=== PATIENT | male | born 1990 | race Caucasian/White ===

== ENCOUNTER → 2019-05-24 | Outpatient (CLI) | payer OTHER ==
--- NOTE | 2019-05-24 10:30 | Diagnostic Imaging Report ---
EXAM: US ABDOMEN COMPLETE DATE: 05/24/2019 8:40 AM INDICATION: Abdominal pain COMPARISON: None TECHNIQUE: Transverse and longitudinal vazquez scale and color doppler sonographic images of the upper abdomen were obtained. FINDINGS: There is no evidence of fluid or masses seen in the area of clinical concern in the right lower quadrant. LIVER 15.2 cm in the right midclavicular line. Normal echogenicity of the liver with normal contour, no masses. SPLEEN 12.7 cm in maximum diameter. Normal echogenicity, no masses. GALLBLADDER 1.4 cm echogenic lesion in the body of the gallbladder without associated acoustic shadowing, possibly representing tumefactive sludge. No gallbladder wall thickening, distension, stone, or pericholecystic fluid. Negative reported sonographic Santo's sign. Gallbladder wall measures 2 mm. BILE DUCTS No intra nor extra-hepatic biliary dilation. Common bile duct measures 4 mm PANCREAS: Visualized portions are normal. RIGHT KIDNEY: 10.1 cm Echogenicity: Normal Collecting System: No hydronephrosis Stones: None Cyst/Mass: None LEFT KIDNEY: 10.6 cm Echogenicity: Normal Collecting System: No hydronephrosis Stones: None Cyst/Mass: None VESSELS: Aorta: Visualized portions are within normal size limits Inferior Vena Cava: Visualized portions are normal Main Portal Vein: 1.0 cm, normal size with hepatopetal flow. FREE FLUID: None IMPRESSION: 1.4 cm echogenic lesion in the body of the gallbladder without associated acoustic shadowing may represent tumefactive sludge. No sonographic evidence of cholecystitis. Signed by: Devorah Jaquez MD on 05/24/2019 10:26 AM
== END ==
LOC: US 08:32
PROVIDERS: ATTEND Family Medicine
DX: R10.9 Unspecified abdominal pain (principal)
CPT/HCPCS: 76700

== ENCOUNTER → 2019-06-03 | Day surgery (SDC) | payer MEDICARE, OTHER ==
[~2019-06-03] MED LIST: ABILIFY5 MG PO; ATORVASTATIN CA10 MG PO; DIAZEPAM5 MG PO; FARXIGA10 MG; LITHIUM CARBON450 MG; MONTELUKAST SOD10 MG PO; PIOGLITAZONE HC45 MG PO; PROPOFOL IV EMULSION 10 MG/ML 50 ML VIAL ONE
--- OUTSIDE RECORDS SUMMARY | 2019-06-03 11:25 | XMS REPORT ---
Author Author Admin, [place] Organization Unknown Address Unknown Phone Unavailable PROBLEMS Condition Status Date Provider Notes High risk medication management active Forrest Atri Diabetes mellitus, type II active Natali Santso Polydipsia active Natali Santos Polyuria active Natali Santos Allergic rhinitis active Elmer Solorio Impulse control disorder, unspecified active Forrest Atri Gastroenteritis completed - Madhumita [place] Abdominal pain, generalized completed - Elmer Solorio Hyperglycemia active Elmer Solorio Adjustment disorder with conduct disturbance active Forrest Atri Encounter for general adult medical examination with abnormal findings active Elmer Solorio Weight loss abnormal completed - Elmer Solorio Screening for other and unspecified cardiovascular conditions active Elmer Solorio Incontinence, urinary NOS active Elmer Solorio Screening for thyroid disorder active Elmer Solorio Congenital megacolon active Elmer Solorio Screening for diabetes mellitus active Elmer Solorio Intellectual disability, moderate active Elmer Solorio ENCOUNTERS Date Type Provider Location Encounter Diagnosis - Ambulatory Encounter Forrest Atri Forrest Atri [facility] UNK - Ambulatory Encounter Forrest Atri Forrest Atri Sheryl Esparza [facility] UNK - Ambulatory Encounter Forrest Atri Forrest Atri [facility] UNK - Ambulatory Encounter Forrest Atri Forrest Atri Sabrina Ayala [facility] UNK - Ambulatory Encounter [facility] En[facility] Forrest Atri Forrest Atri [facility] UNK - Ambulatory Encounter Forrest Atri Forrest Atri Sheryl Esparza [facility] UNK - Ambulatory Encounter Forrest Atri Forrest Atri [facility] UNK - Ambulatory Encounter Forrest Atri Forrest Atri Rosa Elena Saucedo Esparza [facility] High risk medication management - Ambulatory Encounter Forrest Atri Forrest Atri [facility] UNK - Ambulatory Encounter Forrest Atri Forrest Atri Cookie Kern [facility] UNK - Ambulatory Encounter Forrest Atri Forrest Atri [facility] UNK - Ambulatory Encounter Forrest Atri Forrest Atri Sabrina Ayala [facility] UNK - Ambulatory Encounter Forrest Atri Forrest Atri [facility] UNK - Ambulatory Encounter Forrest Atri Forrest Atri [facility] UNK - Ambulatory Encounter Sheryl Esparza [facility] UNK - Ambulatory Encounter Forrest Atri Forrest Atri Sharon Mathewia Esparza [facility] UNK - Ambulatory Encounter Forrest Atri Forrest Atri [facility] UNK - Ambulatory Encounter Forrest Atri Forrest Atri [facility] UNK - Ambulatory Encounter Forrest Atri Forrest Atri Alejandrina Cannon [facility] UNK - Ambulatory Encounter Forrest Atri Forrest Atri Isa Dandre [facility] UNK - Ambulatory Encounter Forrest Atri Forrest Atri Randi Mcintoshdo [facility] UNK - Ambulatory Encounter Moni Adán Mellozmin Mayers Forrest Atri Forrest Atri [facility] UNK - Ambulatory Encounter Forrest Atri Forrest Atri [facility] UNK - Ambulatory Encounter Forrest Atri Forrest Atri Zenon Montes [facility] UNK - Ambulatory Encounter [facility]ri [facility] - Ambulatory Encounter Natali Santos LinkLog [facility] UNK - Ambulatory Encounter Natali Santos LinkLog [facility] UNK - Ambulatory Encounter Forrest Atri Forrest Atri Cintia Gonzalez [facility] UNK - Ambulatory Encounter Forrest Atri Forrest Atri [facility] UNK - Ambulatory Encounter Natali Santos [facility] UNK - Ambulatory Encounter Natali Santos LinkLog [facility] UNK - Ambulatory Encounter Forrest Atri Forrest Atri Piper Mayers [facility] UNK - Ambulatory Encounter Forrest Atri Forrest Atri Zenon Montes [facility] UNK - Ambulatory Encounter Forrest Atri Forrest Atri LinkLogic [facility] UNK - Ambulatory Encounter Forrest Atri Forrest Atri Sheryl Esparza [facility] UNK - Ambulatory Encounter Forrest Atri Forrest Atri [facility] UNK - Ambulatory Encounter Forrest Atri Forrest Atri LinkLogic [facility] UNK - Ambulatory Encounter Natali Santos [facility] Diabetes mellitus, type II - Ambulatory Encounter Forrest Atri Forrest Atri Marj Jimenez [facility] UNK - Ambulatory Encounter Marj Jimenez [facility] UNK - Ambulatory Encounter Marj Jimenez [facility] UNK - Ambulatory Encounter [facility] UN[facility] - Ambulatory Encounter Natali Santos [facility] UNK - Ambulatory Encounter LSJ Lab Support Desktop Jeevan Santos [facility] UNK - Ambulatory Encounter Fax Status LinkLogic [facility] UNK - Ambulatory Encounter Fax Status LinkLogic [facility] UNK - Ambulatory Encounter Fax Status LinkLogic [facility] UNK - Ambulatory Encounter Perla cMcain [facility] UNK - Ambulatory Encounter Forrest Atri Forrest Atri Sheryl Esparza [facility] UNK - Ambulatory Encounter Natali Santos [facility] UNK - Ambulatory Encounter [facility] PolyuriaPolydipsia - Ambulatory Encounter Anabelle Santos [facility] UNK - Ambulatory Encounter Forrest Atri Forrest Atri Marj Jimenez [facility] UNK - Ambulatory Encounter Marj Jimenez [facility] UNK - Ambulatory Encounter Cintia Garcia [facility] UNK - Ambulatory Encounter [facility] UNK - Ambulatory Encounter Elmer Solorio [facility] - Ambulatory Encounter Forrest Atri Forrest Atri Piper Mayers [facility] UNK - Ambulatory Encounter Forrest Atri Forrest Atri [facility] UNK - Ambulatory Encounter Forrest Atri Forrest Atri [facility] UNK - Ambulatory Encounter Forrest Atri Forrest [facility] - [facility]ulatory Encounter Forrest Atri Forrest Atri [facility] UNK - Ambulatory Encounter Forrest Atri Forrest Atri Sheryl Esparza [facility] UNK - Ambulatory Encounter Elmer Solorio [facility] UNK - Ambulatory Encounter Marj Tony [facility] UNK - Ambulatory Encounter Vance [place] [facility] Weight loss abnormalAbdominal pain, generalizedAllergic rhinitis - Ambulatory Encounter Forrest Atri Forrest Atri [facility] UNK - Ambulatory Encounter Forrest Atri Forrest Atri [facility] UNK - Ambulatory Encounter Forrest Atri Forrest Atri LinkLogic [facility] UNK - Ambulatory Encounter Forrest Atri Forrest [facility]ri [facility] - Ambulatory Encounter Marj Jimenez [facility] UNK - [facility] UNK - Ambulatory Encounter Forrest Atri Forrest Atri [facility] UNK - Ambulatory Encounter Forrest Atri Forrest Atri Sheryl Esparza [facility] Impulse control disorder, unspecified - Ambulatory Encounter Sebastien Sampson [facility] UNK - Ambulatory Encounter Madhumita [place] Brodiehumita China [facility] - Ambulatory Encounter Forrest Atri Forrest Atri [facility] UNK - Ambulatory Encounter Forrest Atri Forrest Atri [facility] UNK - Ambulatory Encounter Forrest Atri Forrest Atri [facility] UNK - Ambulatory Encounter Forrest Atri Forrest Atri [facility] UNK - Ambulatory Encounter Forrest Atri Forrest Atri LinkLogic [facility] UNK - Ambulatory Encounter Forrest Atri Forrest Atri LinkLogic [facility] UNK - Ambulatory Encounter Forrest Atri Forrest Atri LinkLogic [facility] UNK - Ambulatory Encounter Marj Sampson [facility] UNK - Ambulatory Encounter Elmer Solorio [facility] UNK - Ambulatory Encounter Madzana [place] Madhumita [place] Surekha Solorio [facility] UNK - Ambulatory Encounter Forrest Atri Forrest [facility] - Ambulatory Encounter Madhumita [place] Madhumita [place] [facility] UNK - Ambulatory Encounter Marj Jimenez [facility] UNK - Ambulatory Encounter Madericmita [place] Madhumita [place] Phoebe Zurita [facility] Abdominal pain, generalizedGastroenteritis - Ambulatory Encounter Ashanti Richardson [facility] UNK - Ambulatory Encounter Elmer Solorio [facility] UNK - Ambulatory Encounter Marj Jimenez [facility] UNK - Ambulatory Encounter Forrest Atri Forrest Atri [facility] UNK - Ambulatory Encounter Forrest Atri Forrest Atri [facility] UNK - Ambulatory Encounter Forrest Atri Forrest Atri Sheryl Esparza [facility] UNK - Ambulatory Encounter Vance Dysonutosh Atri Forrest Atri Bettina Pool [facility] Hyperglycemia - Ambulatory Encounter Rebecca Shields [facility] UNK - Ambulatory Encounter Marj Jimenez Natalya Gabriel [facility] UNK - Ambulatory Encounter Forrest Montes [facility] Adjustment disorder with conduct disturbance - Ambulatory Encounter [facility] UNK - Ambulatory Encounter [facility] UNK - Ambulatory Encounter Leydi Westley [facility]K - Ambulatory Encounter Marj Tony [facility] UNK - Ambulatory Encounter Elmer Solorio [facility] UNK - Ambulatory [facility] Encounter Elmer Solorio [facility] UNK - Ambulatory Encounter Elmer Solorio [facility] UNK - Ambulatory Encounter Elmer Solorio [facility] UNK - Ambulatory Encounter Elmer Solorio [facility] UNK - Ambulatory Encounter Elmer Solorio [facility] UNK - Ambulatory Encounter Rebecca Arnold [facility] Intellectual disability, moderateScreening for diabetes mellitusCongenital megacolonScreening for thyroid disorderIncontinence, urinary NOSScreening for other and unspecified cardiovascular conditionsWeight loss abnormalEncounter for general adult medical examination with abnormal findings VITAL SIGNS No Information Available Allergies No Known Allergy Information REASON FOR REFERRAL No Information Available RESULTS Date Observation Value Provider Reference Range Interpretation Location lithium, blood 0.5 mmol/L LinkLogic 0.6-1.2 Low " LDL cholesterol, serum TRIGHI mg/dL LinkLogic 0-99 " very low density lipoproteins VLDLCH mg/dL LinkLogic 5-40 " HDL cholesterol, serum 33 mg/dL LinkLogic >39 Low " triglyceride, serum, fasting 407 mg/dL LinkLogic 0-149 High " cholesterol, serum 166 mg/dL LinkLogic 100-199 " alanine aminotransferase (SGPT), serum 69 1/L LinkLogic 0-44 High " aspartate aminotransferase (SGOT), serum 37 1/L LinkLogic 0-40 " alkaline phosphatase, serum 56 1/L [facility]Logic 39-117 " bilirubin, serum, total 0.3 mg/dL [facility]Logic 0.0-1.2 " albumin/globulin ratio, serum 2.2 [facility]Logic 1.2-2.2 " globulin, serum 2.4 [facility]Logic 1.5-4.5 " albumin, serum 5.2 g/dL LinkLogic 3.5-5.5 " protein, total, serum 7.6 g/dL [facility]Logic 6.0-8.5 " calcium, serum 10.3 mg/dL [facility]Logic 8.7-10.2 High " carbon dioxide, venous blood 23 mmol/L [facility]Logic 20-29 " chloride, serum 102 mmol/L LinkLogic 96-106 " potassium, serum 3.8 mmol/L LinkLogic 3.5-5.2 " sodium, serum 142 mmol/L LinkLogic 134-144 " urea nitrogen/creatinine ratio, serum 24 LinkLogic 9-20 High " eGFR if 176 mL/min/((173/100).m2) LinkLogic >59 " Estimated Glomerular Filtration Rate (calc) 152 mL/min/((173/100).m2) LinkLogic >59 " creatinine, serum 0.45 mg/dL LinkLogic 0.76-1.27 Low " urea nitrogen, blood 11 mg/dL LinkLogic 6-20 " blood glucose, random 129 mg/dL LinkLogic 65-99 High " immature granulocytes, percentage of total cells, blood 1 % LinkLogic Not Estab. " basophil count, absolute 0.1 x10E3/uL LinkLogic 0.0-0.2 " Eosinophil Absolute Count 0.2 X10E3/UL LinkLogic 0.0-0.4 " monocyte count, blood, automated 0.6 X10E3/UL LinkLogic 0.1-0.9 " lymphocyte count, blood, automated 1.5 X10E3/UL LinkLogic 0.7-3.1 " Absolute Neutrophils 5.6 X10E3/UL LinkLogic 1.4-7.0 " basophils as percent of blood leukocytes 1 % LinkLogic Not Estab. " eosinophils as percent of blood leukocytes 2 % LinkLogic Not Estab. " monocytes as percent of blood leukocytes 7 % LinkLogic Not Estab. " lymphocytes as percent of blood leukocytes 19 % LinkLogic Not Estab. " neutrophils as percent of blood leukocytes 70 % LinkLogic Not Estab. " platelet count 205 X10E3/UL LinkLogic 150-379 " red blood cell distribution width 13.2 % LinkLogic 12.3-15.4 " mean corpuscular hemoglobin concentration, RBC 35.1 G/DL LinkLogic 31.5-35.7 " mean corpuscular hemoglobin, RBC 30.0 pg LinkLogic 26.6-33.0 " mean corpuscular volume, RBC 86 fL LinkLogic 79-97 " hematocrit, blood 50.1 % LinkLogic 37.5-51.0 " hemoglobin, blood 17.6 g/dL LinkLogic 13.0-17.7 " erythrocyte (RBC) count 5.86 X10E6/UL LinkLogic 4.14-5.80 High " leukocyte count, blood 7.9 X10E3/UL LinkLogic 3.4-10.8 lithium, blood 0.6 mmol/L LinkLogic 0.6-1.2 " triiodothyronine (T3), serum 120 ng/dL LinkLogic 71-180 " thyroxine, serum, total 8.4 ug/dL LinkLogic 4.5-12.0 " thyroid stimulating hormone, serum 2.160 u[iU]/mL LinkLogic 0.450-4.500 valproic acid, serum 121 ug/mL LinkLogic 50-100 Panic high urine culture No growth LinkLogic specific gravity, urine 1.005 Bettina Pool " pH, urine, semiquantitative 5.5 Bettina Pool " glucose, urine, semiquantitative 4+ Bettina Pool " bilirubin, urine negative Bettina Pool " ketones, urine, by test strip trace (5) Bettina Pool " blood in urine (hemoglobin) by dipstick negative Bettina Pool " protein, urine, semiquantitative (dipstick) negative Bettina Pool " urobilinogen, urine, semiquantitative (dipstick) negative Bettina Pool " nitrite, urine, semiquantitative negative Bettina Pool " leukocyte esterase, urine, by dipstick negative Bettina Pool " appearance, urine clear Bettina Pool " urine color yellow Bettina Pool " blood glucose, random 320 mg/dL Bettina Pool valproic acid, serum 76 ug/mL LinkLogic 50-100 blood glucose, random 101 mg/dL Surekha Monten[place]ro valproic acid, serum 13 ug/mL LinkLogic 50-100 Low blood glucose, random 131 mg/dL Bettina Pool hemoglobin A1C, blood, as % of total hemoglobin 10.7 % LinkLogic 4.8-5.6 High thyroid stimulating hormone, serum 1.650 u[iU]/mL LinkLogic 0.450-4.500 " LDL cholesterol, serum TRIGHI mg/dL LinkLogic 0-99 " very low density lipoproteins VLDLCH mg/dL LinkLogic 5-40 " HDL cholesterol, serum 27 mg/dL LinkLogic >39 Low " triglyceride, serum, fasting 410 mg/dL LinkLogic 0-149 High " cholesterol, serum 223 mg/dL LinkLogic 100-199 High " urinalysis, microscopic examination MICNIP LinkLogic " nitrate, urine Negative LinkLogic Negative " urobilinogen, urine, semiquantitative (dipstick) 0.2 LinkLogic 0.2-1.0 " bilirubin, urine Negative LinkLogic Negative " ketones, urine, by test strip 1+ LinkLogic Negative Abnormal " glucose, urine, semiquantitative 3+ LinkLogic Negative Abnormal " protein, urine, semiquantitative (dipstick) Negative LinkLogic Negative/Trace " leukocyte esterase, urine, by dipstick Negative LinkLogic Negative " appearance, urine Clear LinkLogic Clear " urine color Yellow LinkLogic Yellow " pH, urine, semiquantitative 6.5 LinkLogic 5.0-7.5 " specific gravity, body fluid >=1.030 LinkLogic 1.005-1.030 Abnormal " alanine aminotransferase (SGPT), serum 47 1/L LinkLogic 0-44 High " aspartate aminotransferase (SGOT), serum 26 1/L LinkLogic 0-40 " alkaline phosphatase, serum 76 1/L LinkLogic 39-117 " bilirubin, serum, total 0.5 mg/dL LinkLogic 0.0-1.2 " albumin/globulin ratio, serum 2.1 LinkLogic 1.2-2.2 " globulin, serum 2.3 LinkLogic 1.5-4.5 " albumin, serum 4.9 g/dL LinkLogic 3.5-5.5 " protein, total, serum 7.2 g/dL LinkLogic 6.0-8.5 " calcium, serum 10.4 mg/dL LinkLogic 8.7-10.2 High " carbon dioxide, venous blood 22 mmol/L LinkLogic 18-29 " chloride, serum 97 mmol/L LinkLogic 96-106 " potassium, serum 4.1 mmol/L LinkLogic 3.5-5.2 " sodium, serum 138 mmol/L LinkLogic 134-144 " urea nitrogen/creatinine ratio, serum 18 LinkLogic 9-20 " eGFR if 157 mL/min/((173/100).m2) LinkLogic >59 " Estimated Glomerular Filtration Rate (calc) 136 mL/min/((173/100).m2) LinkLogic >59 " creatinine, serum 0.60 mg/dL LinkLogic 0.76-1.27 Low " urea nitrogen, blood 11 mg/dL LinkLogic 6-20 " blood glucose, random 406 mg/dL LinkLogic 65-99 High " immature granulocytes, percentage of total cells, blood 1 % LinkLogic Not Estab. " basophil count, absolute 0.0 x10E3/uL LinkLogic 0.0-0.2 " Eosinophil Absolute Count 0.1 X10E3/UL LinkLogic 0.0-0.4 " monocyte count, blood, automated 0.4 X10E3/UL LinkLogic 0.1-0.9 " lymphocyte count, blood, automated 2.3 X10E3/UL LinkLogic 0.7-3.1 " Absolute Neutrophils 3.9 X10E3/UL LinkLogic 1.4-7.0 " basophils as percent of blood leukocytes 1 % LinkLogic Not Estab. " eosinophils as percent of blood leukocytes 1 % LinkLogic Not Estab. " monocytes as percent of blood leukocytes 5 % LinkLogic Not Estab. " lymphocytes as percent of blood leukocytes 34 % LinkLogic Not Estab. " neutrophils as percent of blood leukocytes 58 % LinkLogic Not Estab. " platelet count 216 X10E3/UL LinkLogic 150-379 " red blood cell distribution width 13.4 % LinkLogic 12.3-15.4 " mean corpuscular hemoglobin concentration, RBC 34.7 G/DL LinkLogic 31.5-35.7 " mean corpuscular hemoglobin, RBC 30.9 pg LinkLogic 26.6-33.0 " mean corpuscular volume, RBC 89 fL LinkLogic 79-97 " hematocrit, blood 47.3 % LinkLogic 37.5-51.0 " hemoglobin, blood 16.4 g/dL LinkLogic 13.0-17.7 " erythrocyte (RBC) count 5.31 X10E6/UL LinkLogic 4.14-5.80 " leukocyte count, blood 6.7 X10E3/UL LinkLogic 3.4-10.8 HISTORY OF IMMUNIZATIONS No Information Available HISTORY OF MEDICATION USE Medication Instructions Dates Provider Comments FARXIGA TABLET Formerly [facility] Atri ABILIFY 2 MG TABS TAKE ONE (1) TABLET(S) BY MOUTH DAILY FOR ANGER, MOOD. - Forrest Atri ARIPIPRAZOLE 10MG TABLET TAKE ONE (1) TABLET(S) BY MOUTH ONCE A DAY FOR MOOD. Forrest Atri LITHIUM CARBONATE 450MG ER TAB TAKE TWO (2) TABLET(S) BY MOUTH AT BEDTIME FOR MOOD. Forrest Atri VALIUM 5 MG ORAL TABLET 1 tab By Mouth q5pm for anxiety Forrest Atri GUANFACINE HCL 1 MG ORAL TABLET 1 tab By Mouth q3pm and take at bedtime for mood, impulse control - Forrest Nargis GLIPIZIDE 10 MG ORAL TABLET 1 tablet by mouth daily Natali Santos METFORMIN HCL 500 MG ORAL TABLET 1 by mouth once a day Natali Santos CHLORPROMAZINE HCL 50 MG ORAL TABLET 1/2 tab By Mouth Twice a Day for one week, then increase to 1 tab By Mouth Twice a Day for mood - Forrest Barillas DEPAKOTE 500 MG ORAL TABLET DELAYED RELEASE 1 tab By Mouth Twice a Day for two weeks then stop - Forrest Barillas FLONASE ALLERGY RELIEF 50 MCG/ACT NASAL SUSPENSION 2 sprays each nostril every day Elmer Solorio FLAGYL 500 MG ORAL TABLET 1 tab by mouth twice a day for 7 days - Claire Atkinson PEPCID 20 MG ORAL TABLET 1 by mouth twice a day - Elmer Solorio GUANFACINE HCL 1 MG ORAL TABLET 1 tab By Mouth Twice a Day for impulse control - Forrest Barillas BLOOD GLUCOSE TEST IN VITRO STRIP Dispense for use in checking fasting blood sugar and 2 hour postprandial blood sugar Rebecca Shields LANCETS Dispense for use in checking fasting blood sugar and 2 hour postprandial blood sugar Rebecca Shields GLIPIZIDE 5 MG ORAL TABLET (GLIPIZIDE) Take 1 tab By Mouth twice daily - Elmer Solorio METFORMIN HCL 500 MG ORAL TABLET 1 by mouth twice a day - Elmer Solorio MULTIVITAMINS ORAL CAPSULE 1 by mouth every day Elmer Solorio VITAMIN C 500 MG ORAL TABLET 1 by mouth every day Elmer Solorio VALPROIC ACID 250 MG ORAL CAPSULE 1 tab By Mouth Twice a Day for mood - Forrest Barillas FLUOXETINE HCL 10 MG ORAL CAPSULE 1 by mouth daily - Forrest Barillas BENZTROPINE MESYLATE 0.5 MG ORAL TABLET 1 tab By Mouth Twice a Day for EPS - Forrest Atri ZIPRASIDONE HCL 20 MG ORAL CAPSULE Take 1 tab By Mouth twice daily - Forrest Atri LORAZEPAM 0.5 MG ORAL TABLET Take 1 tab By Mouth as needed - Forrest Atri SOCIAL HISTORY Date Observation Value Provider drug use, illicit Never Forrest Atri " alcohol use Never Forrest Atri " smoking status never smoker Forrest Atri " social history E&M Single. Not homeless. Born in [facility]. City: [place]. State: [place]. Loves with mother, pt is intellectually disabled Not employed. Gender identity: Male. Forrest Atri " social history reviewed E&M reviewed today Forrest Atri drug use, illicit Never Forrest Atri " alcohol use Never Forrest Atri " smoking status never smoker Forrest Atri " social history E&M Single. Not homeless. Born in [facility]. City: [place]. State: [place]. Loves with mother, pt is intellectually disabled Not employed. Gender identity: Male. Forrest Atri " social history reviewed E&M reviewed today Forrest Atri drug use, illicit Never Forrest Atri " alcohol use Never Forrest Atri " smoking status never smoker Forrest Atri " social history E&M Single. Not homeless. Born in [facility]. City: [place]. State: [place]. Loves with mother, pt is intellectually disabled Not employed. Gender identity: Male. Forrest Atri " social history reviewed E&M reviewed today Forrest Atri drug use, illicit Never Forrest Atri " alcohol use Never Forrest Atri " smoking status never smoker Forrest Atri " social history E&M Single. Not homeless. Born in [facility]. City: [place]. State: [place]. Loves with mother, pt is intellectually disabled Not employed. Gender identity: Male. Forrest Atri " social history reviewed E&M reviewed today Forrest Atri drug use, illicit Never Forrest Atri " alcohol use Never Forrest Atri " smoking status never smoker Forrest Atri " social history E&M Single. Not homeless. Born in [place]. City: [place]. State: [place]. Loves with mother, pt is intellectually disabled Not employed. Gender identity: Male. Forrest Atri " social history reviewed E&M reviewed today Forrest Atri social history E&M Single. Not homeless. Born in [facility]. City: [place]. State: [place]. Loves with mother, pt is intellectually disabled Not employed. Gender identity: Male. Forrest Atri " social history reviewed E&M reviewed today Forrest Atri social history E&M Single. Not homeless. Born in [facility]. City: [place]. State: [place]. Loves with mother, pt is intellectually disabled Not employed. Gender identity: Male. Forrest Atri " social history reviewed E&M reviewed today Forrest Atri drug use, illicit Never Forrest Atri " alcohol use Never Forrest Atri " smoking status never smoker Forrest Atri " social history E&M Single. Not homeless. Born in [facility]. City: [place]. State: [place]. Loves with mother, pt is intellectually disabled Not employed. Gender identity: Male. Forrest Atri " social history reviewed E&M reviewed today Forrest Atri drug use, illicit Never Forrest Atri " alcohol use Never Forrest Atri " smoking status never smoker Forrest Atri " social history E&M Single. Not homeless. Born in [facility]. City: [place]. State: [place]. Loves with mother, pt is intellectually disabled Not employed. Gender identity: Male. Forrest Atri " social history reviewed E&M reviewed today Forrest Atri drug use, illicit Never Forrest Atri " alcohol use Never Forrest Atri " smoking status never smoker Forrest Atri " social history E&M Single. Not homeless. Born in [facility]. City: [place]. State: [place]. Loves with mother, pt is intellectually disabled Not employed. Gender identity: Male. Forrest Atri " social history reviewed E&M reviewed today Forrest Atri passive cigarette smoke exposure No Marj Jimenez passive cigarette smoke exposure No Marj Jimenez drug use, illicit Never Forrest Atri " alcohol use Never Forrest Atri " smoking status never smoker Forrest Atri " social history E&M Single. Not homeless. Born in [facility]. City: [place]. State: [place]. Loves with mother, pt is intellectually disabled Not employed. Gender identity: Male. Forrest Atri " social history reviewed E&M reviewed today Forrest Atri drug use, illicit Never Bettina Pool " alcohol use Never Bettina Pool " social history E&M Single. Not homeless. Born in [facility]. City: [place]. State: [place]. Loves with mother, pt is intellectually disabled Not employed. Gender identity: Male. Bettina Pool " social history reviewed E&M reviewed today Bettina Pool " assessment of health literacy ([facility] 2014 Standards, 3C10) Adequate Bettina Pool " passive cigarette smoke exposure No Bettina Pool " smoking status never smoker Bettina Pool time of call 01/27/2018 10:59 AM Anabelle Christy drug use, illicit Never Forrest Atri " alcohol use Never Forrest Atri " smoking status never smoker Forrest Atri " social history E&M Single. Not homeless. Born in [facility]. City: [place]. State: [place]. Loves with mother, pt is intellectually disabled Not employed. Gender identity: Male. Forrest Atri " social history reviewed E&M reviewed today Forrest Atri passive cigarette smoke exposure No Marj Jimenez alcohol use Never Forrest Atri " smoking status never smoker Forrest Atri " social history E&M Single. Not homeless. Born in [facility]. City: [place]. State: [place]. Loves with mother, pt is intellectually disabled Not employed. Gender identity: Male. Forrest Atri " social history reviewed E&M reviewed today Forrest Atri Exercise Program Referral Janell Solorio " Weight Management Counseling Provided Janell Solorio " Nutrition intervention Janell Solorio " drug use, illicit Never Rosa Elena Rosenthal " alcohol use Never Rosa Elena Rosenthal " social history E&M Single. Not homeless. Born in [facility]. City: [place]. State: [place]. Loves with mother, pt is intellectually disabled Not employed. Gender identity: Male. Rosa Elena Rosenthal " social history reviewed E&M reviewed today Rosa Elena Rosenthal " assessment of health literacy ([facility] 2014 Standards, 3C10) Adequate Rosa Elena Rosenthal " passive cigarette smoke exposure No Rosa Elena Rosenthal " smoking status never smoker Rosa Elena Rosenthal passive cigarette smoke exposure No Marj Jimenez drug use, illicit Never Forrest Atri " alcohol use Never Forrest Atri " smoking status never smoker Forrest Atri " social history E&M Single. Not homeless. Born in [facility]. City: [place]. State: [place]. Loves with mother, pt is intellectually disabled Not employed. Gender identity: Male. Forrest Atri " social history reviewed E&M reviewed today Forrest Atri Exercise Program Referral Janell Solorio " Weight Management Counseling Provided Janell Solorio " Nutrition intervention Janell Solorio " drug use, illicit Never Surekha Montenegro " alcohol use Never Surekha Montenegro " passive cigarette smoke exposure No Surekha Montenegro " smoking status never smoker Surekha Montenegro drug use, illicit Never Phoebe Parminder " alcohol use Never Phoebe Parminder " social history E&M Single. Not homeless. Born in [facility]. City: [place]. State: [place]. [facility] with mother, pt is intellectually disabled Not employed. Gender identity: Male. Phoebe Zurita " social history reviewed E&M reviewed today Phoebe Parminder " passive cigarette smoke exposure No Phoebe Parminder " smoking status never smoker Phoebe Parminder " assessment of health literacy ([facility] 2014 Standards, 3C10) Adequate Phoebe Zurita " Exercise Program Referral Janell Zurita " Weight Management Counseling Provided Janell Zurita " Nutrition intervention Janell Zurita drug use, illicit Never Forrest Atri " alcohol use Never Forrest Atri " smoking status never smoker Forrest Atri " social history E&M Single. Not homeless. Born in [facility]. City: [place]. State: [place]. Loves with mother, pt is intellectually disabled Not employed. Gender identity: Male. Forrest Atri " social history reviewed E&M reviewed today Forrest Atri drug use, illicit Never Marj Jimenez " alcohol use Never Marj Jimenez " smoking status never smoker Marj Jimenez Exercise Program Referral Janell Solorio " Weight Management Counseling Provided Janell Solorio " Nutrition intervention Janell Solorio " drug use, illicit Never Bettina Pool " alcohol use Never Bettina Pool " social history E&M Single. Not homeless. Born in [facility]. City: [place]. State: [place]. Loves with mother, pt is intellectually disabled Not employed. Gender identity: Male. Bettina Pool " social history reviewed E&M reviewed today Bettina Pool " passive cigarette smoke exposure No Bettina Pool " smoking status never smoker Bettina Pool " assessment of health literacy ([facility] 2014 Standards, 3C10) Adequate Bettina Pool social history E&M Single. Not homeless. Born in [facility]. City: [place]. State: [place]. Loves with mother, pt is intellectually disabled Not employed. Gender identity: Male. Forrest Barillas " social history reviewed E&M reviewed today Forrest Barillas time of call 10/16/2017 2:10 PM Leydi Christy Exercise Program Referral Janell Solorio " Weight Management Counseling Provided Janell Solorio " Nutrition intervention Janell Solorio " social history E&M Single. Not homeless. Born in [facility]. City: [place]. State: [place]. Loves with mother, pt is intellectually disabled Not employed. Gender identity: Male. Ashanti Lorarez " home/family situation, assessment Loves with mother, pt is intellectually disabled Ashanti Lorarez " patient considered to be homeless No Ashanti Richardson " drug use, illicit Never Ashanti Richardson " alcohol use Never Ashanti Richardson " social history reviewed E&M reviewed today Ashanti Dylan " passive cigarette smoke exposure Yes Ashanti Richardson " smoking status never smoker Ashanti Richardson " assessment of health literacy ([facility] 2014 Standards, 3C10) Low Ashanti Richardson FUNCTIONAL STATUS No Information Available MENTAL STATUS Date Observation Value Provider mental status assessment, judgment poor Forrest Atri " insight (mental status exam) poor Forrest Atri " Mental Status Exam: intelligence adequate fund of information, intact memory processes, oriented to place, oriented to time, oriented to situation, oriented to reality, below average Forrest Atri " hallucinations none Forrest Atri " thought content (mental status exam) (E&M) lucid Forrest Atri " mental status assessment, process able to abstract, derailments, illogical Forrest Atri " mental status assessment, sensorium alert, attentive, clear Forrest Atri " affect (mental status exam) irritable, labile Forrest Atri " mood (mental status exam) pleasant Forrest Atri " mental status assessment, speech activity normal flow, normal pace, normal pressure, normal rate, normal tone, normal volume Forrest Atri " mental status assessment, motor activity normal gait, normal posture, agitated, fidgety, hyperactive, playing on Ipad Forrest Atri " behavior (mental status exam) candid, belligerent, negativistic, poor eye contact, uncooperative Forrest Atri " mental appearance (mental status exam) adequate hygiene, appropriate dress, looks like stated age, neat, pleasant Forrest Atri mental status assessment, judgment poor Forrest Atri " insight (mental status exam) poor Forrest Atri " Mental Status Exam: intelligence adequate fund of information, intact memory processes, oriented to place, oriented to time, oriented to situation, oriented to reality, below average Forrest Atri " hallucinations none Forrest Atri " thought content (mental status exam) (E&M) lucid Forrest Atri " mental status assessment, process able to abstract, derailments, illogical Forrest Atri " mental status assessment, sensorium alert, attentive, clear Forrest Atri " affect (mental status exam) irritable, labile Forrest Atri " mood (mental status exam) pleasant Forrest Atri " mental status assessment, speech activity normal flow, normal pace, normal pressure, normal rate, normal tone, normal volume Forrest Atri " mental status assessment, motor activity normal gait, normal posture, agitated, fidgety, hyperactive Forrest Atri " behavior (mental status exam) candid, belligerent, negativistic, poor eye contact, uncooperative Forrest Atri " mental appearance (mental status exam) adequate hygiene, appropriate dress, looks like stated age, neat Forrest Atri mental status assessment, judgment poor Forrest Atri " insight (mental status exam) poor Forrest Atri " Mental Status Exam: intelligence adequate fund of information, intact memory processes, oriented to place, oriented to time, oriented to situation, oriented to reality, below average Forrest Atri " hallucinations none Forrest Atri " thought content (mental status exam) (E&M) lucid Forrest Atri " mental status assessment, process able to abstract, derailments, illogical Forrest Atri " mental status assessment, sensorium alert, attentive, clear Forrest Atri " affect (mental status exam) irritable, labile Forrest Atri " mood (mental status exam) pleasant Forrest Atri " mental status assessment, speech activity normal flow, normal pace, normal pressure, normal rate, normal tone, normal volume Forrest Atri " mental status assessment, motor activity normal gait, normal posture, agitated, fidgety, hyperactive, psychomotor agitated Forrest Atri " behavior (mental status exam) candid, belligerent, negativistic, poor eye contact, uncooperative Forrest Atri " mental appearance (mental status exam) adequate hygiene, appropriate dress, looks like stated age, neat Forrest Atri mental status assessment, judgment poor Forrest Atri " insight (mental status exam) poor Forrest Atri " Mental Status Exam: intelligence adequate fund of information, intact memory processes, oriented to place, oriented to time, oriented to situation, oriented to reality, below average Forrest Atri " hallucinations none Forrest Atri " thought content (mental status exam) (E&M) lucid Forrest Atri " mental status assessment, process able to abstract, derailments, illogical Forrest Atri " mental status assessment, sensorium alert, attentive, clear Forrest Atri " affect (mental status exam) irritable, labile Forrest Atri " mood (mental status exam) pleasant Forrest Atri " mental status assessment, speech activity loud, rambling, rapid Forrest Atri " mental status assessment, motor activity normal gait, normal posture, agitated, fidgety, hyperactive, psychomotor agitated Forrest Atri " behavior (mental status exam) candid, belligerent, negativistic, poor eye contact, uncooperative Forrest Atri " mental appearance (mental status exam) adequate hygiene, appropriate dress, looks like stated age, neat Forrest Atri mental status assessment, judgment poor Forrest Atri " insight (mental status exam) poor Forrest Atri " Mental Status Exam: intelligence adequate fund of information, intact memory processes, oriented to place, oriented to time, oriented to situation, oriented to reality, below average Forrest Atri " hallucinations none Forrest Atri " thought content (mental status exam) (E&M) lucid Forrest Atri " mental status assessment, process able to abstract, derailments, illogical Forrest Atri " mental status assessment, sensorium alert, attentive, clear Forrest Atri " affect (mental status exam) irritable, labile Forrest Atri " mood (mental status exam) pleasant Forrest Atri " mental status assessment, speech activity loud, rambling, rapid Forrest Atri " mental status assessment, motor activity normal gait, normal posture, agitated, fidgety, hyperactive, psychomotor agitated Forrest Atri " behavior (mental status exam) candid, belligerent, negativistic, poor eye contact, uncooperative Forrest Atri " mental appearance (mental status exam) adequate hygiene, appropriate dress, looks like stated age, neat Forrest Atri mental status assessment, judgment poor Forrest Atri " insight (mental status exam) poor Forrest Atri " Mental Status Exam: intelligence adequate fund of information, intact memory processes, oriented to place, oriented to time, oriented to situation, oriented to reality, below average Forrest Atri " hallucinations none Forrest Atri " thought content (mental status exam) (E&M) lucid Forrest Atri " mental status assessment, process able to abstract, derailments, illogical Forrest Atri " mental status assessment, sensorium alert, attentive, clear Forrest Atri " affect (mental status exam) labile Forrest Atri " mood (mental status exam) pleasant Forrest Atri " mental status assessment, speech activity loud, rambling, rapid Forrest Atri " mental status assessment, motor activity normal gait, normal posture, agitated, fidgety, hyperactive, psychomotor agitated Forrest Atri " behavior (mental status exam) candid, belligerent, negativistic, poor eye contact, uncooperative Forrest Atri " mental appearance (mental status exam) adequate hygiene, appropriate dress, looks like stated age, neat Forrest Atri mental status assessment, judgment poor Forrest Atri " insight (mental status exam) poor Forrest Atri " Mental Status Exam: intelligence adequate fund of information, intact memory processes, oriented to place, oriented to time, oriented to situation, oriented to reality, below average Forrest Atri " hallucinations none Forrest Atri " thought content (mental status exam) (E&M) lucid Forrest Atri " mental status assessment, process able to abstract, derailments, illogical Forrest Atri " mental status assessment, sensorium alert, attentive, clear Forrest Atri " affect (mental status exam) labile Forrest Atri " mood (mental status exam) pleasant Forrest Atri " mental status assessment, speech activity loud, rambling, rapid Forrest Atri " mental status assessment, motor activity normal gait, normal posture, agitated, fidgety, hyperactive, psychomotor agitated Forrest Atri " behavior (mental status exam) candid, belligerent, negativistic, poor eye contact, uncooperative Forrest Atri " mental appearance (mental status exam) adequate hygiene, appropriate dress, looks like stated age, neat Forrest Atri mental status assessment, judgment poor Forrest Atri " insight (mental status exam) poor Forrest Atri " Mental Status Exam: intelligence adequate fund of information, intact memory processes, oriented to place, oriented to time, oriented to situation, oriented to reality, below average Forrest Atri " hallucinations none Forrest Atri " thought content (mental status exam) (E&M) lucid Forrest Atri " mental status assessment, process able to abstract, derailments, illogical Forrest Atri " mental status assessment, sensorium alert, attentive, clear Forrest Atri " affect (mental status exam) labile Forrest Atri " mood (mental status exam) pleasant Forrest Atri " mental status assessment, speech activity loud, rambling, rapid Forrest Atri " mental status assessment, motor activity normal gait, normal posture, agitated, fidgety, hyperactive, psychomotor agitated Forrest Atri " behavior (mental status exam) candid, belligerent, negativistic, poor eye contact, uncooperative Forrest Atri " mental appearance (mental status exam) adequate hygiene, appropriate dress, looks like stated age, neat Forrest Atri mental status assessment, judgment poor Forrest Atri " insight (mental status exam) poor Forrest Atri " Mental Status Exam: intelligence adequate fund of information, intact memory processes, oriented to place, oriented to time, oriented to situation, oriented to reality, below average Forrest Atri " hallucinations none Forrest Atri " thought content (mental status exam) (E&M) lucid Forrest Atri " mental status assessment, process able to abstract, derailments, illogical Forrest Atri " mental status assessment, sensorium alert, attentive, clear Forrest Atri " affect (mental status exam) labile Forrest Atri " mood (mental status exam) pleasant Forrest Atri " mental status assessment, speech activity loud, rambling, rapid Forrest Atri " mental status assessment, motor activity normal gait, normal posture, agitated, fidgety, hyperactive, psychomotor agitated Forrest Atri " behavior (mental status exam) candid, belligerent, negativistic, poor eye contact, uncooperative Forrest Atri " mental appearance (mental status exam) adequate hygiene, appropriate dress, looks like stated age, neat Forrest Atri mental status assessment, judgment poor Forrest Atri " insight (mental status exam) poor Forrest Atri " Mental Status Exam: intelligence adequate fund of information, intact memory processes, oriented to place, oriented to time, oriented to situation, oriented to reality, below average Forrest Atri " hallucinations none Forrest Atri " thought content (mental status exam) (E&M) lucid Forrest Atri " mental status assessment, process able to abstract, derailments, illogical Forrest Atri " mental status assessment, sensorium alert, attentive, clear Forrest Atri " affect (mental status exam) labile Forrest Atri " mood (mental status exam) angry, frustrated Forrest Atri " mental status assessment, speech activity loud, profane, rambling, rapid, stuttering Forrest Atri " mental status assessment, motor activity normal gait, normal posture, agitated, fidgety, hyperactive, psychomotor agitated, restless Forrest Atri " behavior (mental status exam) candid, belligerent, negativistic, poor eye contact, uncooperative Forrest Atri " mental appearance (mental status exam) adequate hygiene, appropriate dress, looks like stated age, neat Forrest Atri mental status assessment, judgment poor Forrest Atri " insight (mental status exam) poor Forrest Atri " Mental Status Exam: intelligence adequate fund of information, intact memory processes, oriented to place, oriented to time, oriented to situation, oriented to reality, below average Forrest Atri " hallucinations none Forrest Atri " thought content (mental status exam) (E&M) lucid Forrest Atri " mental status assessment, process able to abstract, derailments, illogical Forrest Atri " mental status assessment, sensorium alert, attentive, clear Forrest Atri " affect (mental status exam) labile Forrest Atri " mood (mental status exam) angry, frustrated Forrest Atri " mental status assessment, speech activity loud, profane, rambling, rapid, stuttering Forrest Atri " mental status assessment, motor activity normal gait, normal posture, agitated, fidgety, hyperactive, psychomotor agitated, restless Forrest Atri " behavior (mental status exam) candid, belligerent, negativistic, poor eye contact, uncooperative Forrest Atri " mental appearance (mental status exam) adequate hygiene, appropriate dress, looks like stated age, neat Forrest Atri mental status assessment, judgment poor Marj Jimenez " insight (mental status exam) poor Marj Jimenez " Mental Status Exam: intelligence adequate fund of information, intact memory processes, oriented to place, oriented to time, oriented to situation, oriented to reality, below average Marj Jimenez " hallucinations none Marj Jimenez " thought content (mental status exam) (E&M) lucid Marj Jimenez " mental status assessment, process able to abstract, derailments, illogical Marj Jimenez " mental status assessment, sensorium alert, attentive, clear Marj Jimenez " affect (mental status exam) labile Marj Jimenez " mood (mental status exam) angry Marj Jimenez " mental status assessment, speech activity loud, profane, rambling, rapid, stuttering Marj Jimenez " mental status assessment, motor activity normal gait, normal posture, agitated, fidgety, psychomotor agitated, restless Marj Jimenez " behavior (mental status exam) candid, belligerent, negativistic, poor eye contact, uncooperative Marj Murraydez " mental appearance (mental status exam) adequate hygiene, appropriate dress, looks like stated tank, kannan Jimenez mental status assessment, judgment good Marj Jimenez " insight (mental status exam) good Marj Jimenez " Mental Status Exam: intelligence adequate fund of information, intact memory processes, oriented to place, oriented to time, oriented to situation, oriented to reality, below average Marj Jimenez " hallucinations none Marj Jimenez " thought content (mental status exam) (E&M) lucid Marj Jimenez " mental status assessment, process able to abstract, goal-directed, logical Marj Jimenez " mental status assessment, sensorium alert, attentive, clear Marj Jimenez " affect (mental status exam) congruent, euthymic, normal intensity, normal range Marj Jimenez " mood (mental status exam) frustrated Marj Jimenez " mental status assessment, speech activity only when prompted, slurred, soft- spoken, stuttering Marj Jimenez " mental status assessment, motor activity normal gait, normal posture, agitated, fidgety Marj Jimenez " behavior (mental status exam) appropriate, candid, cooperative, polite, responsive Marj Bolanosz " mental appearance (mental status exam) adequate hygiene, appropriate dress, looks like stated age, kannan Jimenez mental status assessment, judgment good Forrest Atri " insight (mental status exam) good Forrest Atri " Mental Status Exam: intelligence adequate fund of information, intact memory processes, oriented to place, oriented to time, oriented to situation, oriented to reality, below average Forrest Atri " hallucinations none Forrest Atri " thought content (mental status exam) (E&M) lucid Forrest Atri " mental status assessment, process able to abstract, goal-directed, logical Forrest Atri " mental status assessment, sensorium alert, attentive, clear Forrest Atri " affect (mental status exam) congruent, euthymic, normal intensity, normal range Forrest Atri " mood (mental status exam) frustrated Forrest Atri " mental status assessment, speech activity only when prompted, slurred, soft- spoken, stuttering Forrest Atri " mental status assessment, motor activity normal gait, normal posture, agitated, fidgety Forrest Atri " behavior (mental status exam) appropriate, candid, cooperative, polite, responsive Forrest Atri " mental appearance (mental status exam) adequate hygiene, appropriate dress, looks like stated age, neat Forrest Atri assessment of judgment and insight E&M intact Natali Santos " mental status examination: orientation E&M oriented to time, place, and person Natali Santos " assessment of mood and affect E&M no depression, anxiety, or agitation Natali Santos " Generalized Anxiety Disorder Questionnaire - Question 2 0 [facility] " Generalized Anxiety Disorder Questionnaire - Question 1 0 [facility] mental status assessment, judgment good Forrest Atri " insight (mental status exam) good Forrest Atri " Mental Status Exam: intelligence adequate fund of information, intact memory processes, oriented to place, oriented to time, oriented to situation, oriented to reality, below average Forrest Atri " hallucinations none Forrest Atri " thought content (mental status exam) (E&M) lucid Forrest Atri " mental status assessment, process able to abstract, goal-directed, logical Forrest Atri " mental status assessment, sensorium alert, attentive, clear Forrest Atri " affect (mental status exam) congruent, euthymic, normal intensity, normal range Forrest Atri " mood (mental status exam) frustrated Forrest Atri " mental status assessment, speech activity only when prompted, slurred, soft- spoken, stuttering Forrest Atri " mental status assessment, motor activity normal gait, normal posture, agitated, fidgety Forrest Atri " behavior (mental status exam) appropriate, candid, cooperative, polite, responsive Forrest Atri " mental appearance (mental status exam) adequate hygiene, appropriate dress, looks like stated age, neat Forrest Atri mental status assessment, judgment good Marj Jimenez " insight (mental status exam) good Marj Jimenez " Mental Status Exam: intelligence adequate fund of information, intact memory processes, oriented to place, oriented to time, oriented to situation, oriented to reality, below average Marj Jimenez " hallucinations none Marj Jimenez " thought content (mental status exam) (E&M) lucid Marj Jimenez " mental status assessment, process able to abstract, goal-directed, logical Marj Jimenez " mental status assessment, sensorium alert, attentive, clear Marj Jimenez " affect (mental status exam) congruent, euthymic, normal intensity, normal range Marj Jimenez " mood (mental status exam) euphoric, pleasant Marj Jimenez " mental status assessment, speech activity only when prompted, slurred, soft- spoken, stuttering Marj Jimenez " mental status assessment, motor activity normal gait, normal posture, fidgety Marj Jimenez " behavior (mental status exam) appropriate, candid, cooperative, polite, responsive Marj Jimenez " mental appearance (mental status exam) adequate hygiene, appropriate dress, looks like stated age, neat Marj Murraydez mental status assessment, judgment good Forrest Atri " insight (mental status exam) good Forrest Atri " Mental Status Exam: intelligence adequate fund of information, intact memory processes, oriented to place, oriented to time, oriented to situation, oriented to reality, below average Forrest Atri " hallucinations none Forrest Atri " thought content (mental status exam) (E&M) lucid Forrest Atri " mental status assessment, process able to abstract, goal-directed, logical Forrest Atri " mental status assessment, sensorium alert, attentive, clear Forrest Atri " affect (mental status exam) congruent, euthymic, normal intensity, normal range Forrest Atri " mood (mental status exam) euphoric, pleasant Forrest Atri " mental status assessment, speech activity only when prompted, slurred, soft- spoken, stuttering Forrest Atri " mental status assessment, motor activity normal gait, normal posture, fidgety Forrest Atri " behavior (mental status exam) appropriate, candid, cooperative, polite, responsive Forrest Atri " mental appearance (mental status exam) adequate hygiene, appropriate dress, looks like stated age, neat Forrest Atri assessment of judgment and insight E&M intact Elmer Solorio" mental status examination: orientation E&M oriented to time, place, and person Elmer Solorio" assessment of mood and affect E&M no depression, anxiety, or agitation Elmer Solorio " Generalized Anxiety Disorder Questionnaire - Question 2 0 Rosa Elena Rosenthal " Generalized Anxiety Disorder Questionnaire - Question 1 0 Rosa Elena Rosetnhal mental status assessment, judgment good Marj Jimenez " insight (mental status exam) good Marj Jimenez " Mental Status Exam: intelligence adequate fund of information, intact memory processes, oriented to place, oriented to time, oriented to situation, oriented to reality, below average Marj Jimenez " hallucinations none Marj Jimenez " thought content (mental status exam) (E&M) lucid Marj Jimenez " mental status assessment, process able to abstract, goal-directed, logical Marj Jimenez " mental status assessment, sensorium alert, attentive, clear Marj Jimenez " affect (mental status exam) congruent, euthymic, normal intensity, normal range Marj Jimenez " mood (mental status exam) euphoric, pleasant Marj Jimenez " mental status assessment, speech activity only when prompted, slurred, soft- spoken, stuttering Marj Jimenez " mental status assessment, motor activity normal gait, normal posture, fidgety Marj Jimenez " behavior (mental status exam) appropriate, candid, cooperative, polite, responsive Marj Jimenez " mental appearance (mental status exam) adequate hygiene, appropriate dress, looks like stated age, neat Marj Murraydez mental status assessment, judgment good Forrest Atri " insight (mental status exam) good Forrest Atri " Mental Status Exam: intelligence adequate fund of information, intact memory processes, oriented to place, oriented to time, oriented to situation, oriented to reality, below average Forrest Atri " hallucinations none Forrest Atri " thought content (mental status exam) (E&M) lucid Forrest Atri " mental status assessment, process able to abstract, goal-directed, logical Forrest Atri " mental status assessment, sensorium alert, attentive, clear Forrest Atri " affect (mental status exam) congruent, euthymic, normal intensity, normal range Forrest Atri " mood (mental status exam) pleasant Forrest Atri " mental status assessment, speech activity only when prompted, slurred, soft- spoken, stuttering Forrest Atri " mental status assessment, motor activity normal gait, normal posture Forrest Atri " behavior (mental status exam) appropriate, candid, cooperative, polite, responsive Forrest Atri " mental appearance (mental status exam) adequate hygiene, appropriate dress, looks like stated age, neat Forrest Atri mental status assessment, judgment good Marj Jimenez " insight (mental status exam) good Marj Jimenez " Mental Status Exam: intelligence adequate fund of information, intact memory processes, oriented to place, oriented to time, oriented to situation, oriented to reality, below average Marj Jimenez " hallucinations none Marj Jimenez " thought content (mental status exam) (E&M) lucid Marj Jimenez " mental status assessment, process able to abstract, goal-directed, logical Marj Jimenez " mental status assessment, sensorium alert, attentive, clear Marj Jimenez " affect (mental status exam) congruent, euthymic, normal intensity, normal range Marj Jimenez " mood (mental status exam) pleasant Marj Jimenez " mental status assessment, speech activity only when prompted, slurred, soft- spoken, stuttering Marj Jimenez " mental status assessment, motor activity normal gait, normal posture Marj Jimenez " behavior (mental status exam) appropriate, candid, cooperative, polite, responsive Marj Jimenez " mental appearance (mental status exam) adequate hygiene, appropriate dress, looks like stated age, neat Marj Jimenez assessment of judgment and insight E&M intact Elmer Solorio " mental status examination: orientation E&M oriented to time, place, and person Elmer Solorio " assessment of mood and affect E&M no depression, anxiety, or agitation Elmre Solorio " Generalized Anxiety Disorder Questionnaire - Question 2 0 Surekha Montenegro " Generalized Anxiety Disorder Questionnaire - Question 1 0 Surekha Montenegro mental status assessment, judgment good Marj Jimenez " insight (mental status exam) good Marj Jimenez " Mental Status Exam: intelligence adequate fund of information, intact memory processes, oriented to place, oriented to time, oriented to situation, oriented to reality, below average Marj Jimenez " hallucinations none Marj Jimenez " thought content (mental status exam) (E&M) lucid Marj Jimenez " mental status assessment, process able to abstract, goal-directed, logical Marj Jimenez " mental status assessment, sensorium alert, attentive, clear Marj Jimenez " affect (mental status exam) congruent, euthymic, normal intensity, normal range Marj Jimenez " mood (mental status exam) pleasant Marj Jimenez " mental status assessment, speech activity only when prompted, slurred, soft- spoken, stuttering Marj Jimenez " mental status assessment, motor activity normal gait, normal posture Marj Jimenez " behavior (mental status exam) appropriate, candid, cooperative, polite, responsive Marj Jimenez " mental appearance (mental status exam) adequate hygiene, appropriate dress, looks like stated age, neat Marj Jimenez mental status assessment, judgment good Marj Jimenez " insight (mental status exam) good Marj Jimenez " Mental Status Exam: intelligence adequate fund of information, intact memory processes, oriented to place, oriented to time, oriented to situation, oriented to reality, below average Marj Jimenez " hallucinations none Marj Jimenez " thought content (mental status exam) (E&M) lucid Marj Jimenez " mental status assessment, process able to abstract, goal-directed, logical Marj Jimenez " mental status assessment, sensorium alert, attentive, clear Marj Jimenez " affect (mental status exam) congruent, euthymic, normal intensity, normal range Marj Jimenez " mood (mental status exam) pleasant Marj Jimenez " mental status assessment, speech activity only when prompted, slurred, soft- spoken, stuttering Marj Jimenez " mental status assessment, motor activity normal gait, normal posture Marj Jimenez " behavior (mental status exam) appropriate, candid, cooperative, polite, responsive Marj Jimenez " mental appearance (mental status exam) adequate hygiene, appropriate dress, looks like stated age, kannan Sandovalberly Jimenez Generalized Anxiety Disorder Questionnaire - Question 2 0 Phoebe Zurita " Generalized Anxiety Disorder Questionnaire - Question 1 0 Phoebe Zurita mental status assessment, judgment good Forrest Barillas " insight (mental status exam) good Forrest Atri " Mental Status Exam: intelligence adequate fund of information, intact memory processes, oriented to place, oriented to time, oriented to situation, oriented to reality, below average Forrest Atri " hallucinations none Forrest Atri " thought content (mental status exam) (E&M) lucid Forrest Atri " mental status assessment, process able to abstract, goal-directed, logical Forrest Atri " mental status assessment, sensorium alert, attentive, clear Forrest Atri " affect (mental status exam) congruent, euthymic, normal intensity, normal range Forrest Atri " mood (mental status exam) pleasant Forrest Atri " mental status assessment, speech activity only when prompted, slurred, soft- spoken, stuttering Forrest Atri " mental status assessment, motor activity normal gait, normal posture Forrest Atri " behavior (mental status exam) appropriate, candid, cooperative, polite, responsive Forrest Atri " mental appearance (mental status exam) adequate hygiene, appropriate dress, looks like stated age, neat Forrest Atri mental status assessment, judgment good Marj Jimenez " insight (mental status exam) good Marj Jimenez " Mental Status Exam: intelligence adequate fund of information, intact memory processes, oriented to place, oriented to time, oriented to situation, oriented to reality, below average Marj Jimenez " hallucinations none Marj Jimenez " thought content (mental status exam) (E&M) lucid Marj Jimenez " mental status assessment, process able to abstract, goal-directed, logical Marj Jimenez " mental status assessment, sensorium alert, attentive, clear Marj Jimenez " affect (mental status exam) congruent, euthymic, normal intensity, normal range Marj Jimenez " mood (mental status exam) pleasant Marj Jimenez " mental status assessment, speech activity only when prompted, slurred, soft- spoken, stuttering Marj Jimneez " mental status assessment, motor activity normal gait, normal posture Marj Jimenez " behavior (mental status exam) appropriate, candid, cooperative, polite, responsive Marj Jimenez " mental appearance (mental status exam) adequate hygiene, appropriate dress, looks like stated tank, kannan Aguilarly Jimenez mental status assessment, process tangential Marj Jimenez " mood (mental status exam) anxious, pleasant Marj Jimenez " mental status assessment, judgment fair Marj Jimenez " insight (mental status exam) fair Marj Jimenez " Mental Status Exam: intelligence oriented to person, oriented to place, oriented to situation, oriented to reality, previous retardation diagnosis Marj Jimenez " thought content (mental status exam) (E&M) lucid Marj Jimenez " mental status assessment, sensorium alert, attentive Marj Jimenez " affect (mental status exam) congruent, normal intensity, normal range Marj Bolanosz " mental status assessment, speech activity normal flow, normal pace, normal pressure, normal rate, normal tone, loud Marj Jimenez " mental status assessment, motor activity fidgety Marj Jimenez " behavior (mental status exam) cooperative, polite Marj Jimenez " mental appearance (mental status exam) adequate hygiene, appropriate dress, neat, looks younger than age Marj Jimenez " delusion No Marj Jimenez " hallucinations none Marj Jimenez assessment of judgment and insight E&M intact Elmer Solorio " mental status examination: orientation E&M oriented to time, place, and person Elmer Solorio " assessment of mood and affect E&M no depression, anxiety, or agitation Elmer Solorio " Generalized Anxiety Disorder Questionnaire - Question 2 0 Bettina Pool " Generalized Anxiety Disorder Questionnaire - Question 1 [address] mental status assessment, speech activity only when prompted, slurred, soft-spoken, stuttering Forrest Atri " mood (mental status exam) pleasant Forrest Atri " mental status assessment, judgment good Forrest Atri " insight (mental status exam) good Forrest Atri " Mental Status Exam: intelligence adequate fund of information, intact memory processes, oriented to place, oriented to time, oriented to situation, oriented to reality, below average Forrest Atri " hallucinations none Forrest Atri " thought content (mental status exam) (E&M) lucid Forrest Atri " mental status assessment, process able to abstract, goal-directed, logical Forrest Atri " mental status assessment, sensorium alert, attentive, clear Forrest Atri " affect (mental status exam) congruent, euthymic, normal intensity, normal range Forrest Atri " mental status assessment, motor activity normal gait, normal posture Forrest Barillas " behavior (mental status exam) appropriate, candid, cooperative, polite, responsive Forrest Barillas " mental appearance (mental status exam) adequate hygiene, appropriate dress, looks like stated age, neat Forrest Barillas assessment of judgment and insight E&M intact Elmer Solorio " mental status examination: orientation E&M oriented to time, place, and person Elmer Solorio " assessment of mood and affect E&M no depression, anxiety, or agitation Elmer Solorio " Generalized Anxiety Disorder Questionnaire - Question 2 0 Ashanti Richardson " Generalized Anxiety Disorder Questionnaire - Question 1 0 Ashanti Richardson MEDICAL EQUIPMENT No Information Available FAMILY HISTORY No Information Available INSURANCE PROVIDERS Payer name Policy type / Coverage type Covered green party ID [facility] Medicare [id number] [facility] Complete Medicare [id number] [employer]PPO MEDICARE MedicareB [id number] ADVANCE DIRECTIVES No Information Available TREATMENT PLAN Date Name Lipid Panel [place] (Eskalith), Serum Comp. Metabolic Panel (14) CBC With Differential/Platelet TSH+T4+T3H [place] (Eskalith), Serum [place] (Eskalith), Serum TSH [place] (Eskalith), Serum TSH [place] (Eskalith), Serum TSH+T4+T3H Comp. Metabolic Panel (14) Valproic Acid (Depakote),S Valproic Acid (Depakote),S Urine Culture, Routine Valproic Acid (Depakote),S Valproic Acid (Depakote),S Urinalysis with Micro on Positives TSH Hemoglobin A1c Lipid Panel Comp. Metabolic Panel (14) CBC With Differential/Platelet Est Patient Exp Problem - 50101 Est Patient Exp Problem - 36266 Est Patient Exp Problem - 58892 Est Patient Exp Problem - 61597 Est Patient Exp Problem - 96347 Est Patient Detailed - 92858 Est Patient Exp Problem - 50944 Est Patient Detailed - 87444 Est Patient Exp Problem - 01582 Est Patient Detailed - 05040 Est Patient Detailed - 26912 [facility] Brief Follow Up Psychotherapy 30 (16-37*) min - 95636 (with patient and/or family member) IB Brief Follow Up Psychotherapy 30 (16-37*) min - 43501 (with patient and/or family member) Est Patient Detailed - 54059 Glucose Stick Urinalysis - Dip only - In House Est Patient Exp Problem - 36781 Est Patient Detailed - 46222 [facility] Brief Follow Up Psychotherapy 30 (16-37*) min - 85566 (with patient and/or family member) Est Patient Exp Problem - 72957 Est Patient Exp Problem - 18751 IB Brief Follow Up Psychotherapy 30 (16-37*) min - 54252 (with patient and/or family member) Est Patient Detailed - 58136 [facility] Brief Follow Up Psychotherapy 30 (16-37*) min - 17638 (with patient and/or family member) Glucose Stick Est Patient Exp Problem - 42268 [employer] IB Brief Follow Up Psychotherapy 30 (16-37*) min - 03018 (with patient and/or family member) IB Brief Follow Up Psychotherapy 30 (16-37*) min - 87684 (with patient and/or family member) Est Patient Exp Problem - 63780 Est Patient Detailed - 48282 IB Brief Follow Up Psychotherapy 30 (16-37*) min - 62519 (with patient and/or family member) [facility] Assessment - Roll Skinner Diagnostic evaluation (no medical) - 62971 Glucose Stick Est Patient Exp Problem - 45380 Diagnostic evaluation with medical - 32142 Integrated Behavioral Health Assessment (IBH) HEMOGLOBIN A1C - In House New Patient Detailed - 98314 Behavioral Health - Psychiatry Dental - Internal Behavioral Health - Therapy HISTORY OF PROCEDURES Procedure Date Procedure Name Provider Procedure Notes Status [facility] Brief Follow Up Marj Jimenez completed Psychotherapy 30 (16-37*) min - 53448 (with patient and/or family member) Marj Jimenez completed [facility] Brief Follow Up Marj Jimenez completed Psychotherapy 30 (16-37*) min - 24725 (with patient and/or family member) Marj Jimenez completed Glucose Stick Natali Santos completed Urinalysis - Dip only - In House Natali Santos completed [facility] Brief Follow Up Marj Jimenez completed Psychotherapy 30 (16-37*) min - 66210 (with patient and/or family member) Marj Jimenez completed IB Brief Follow Up Marj Jimenez completed Psychotherapy 30 (16-37*) min - 86719 (with patient and/or family member) Marj Jimenez completed IBH Brief Follow Up Marj Jimenez completed Psychotherapy 30 (16-37*) min - 74963 (with patient and/or family member) Marj Jimenez completed Glucose Stick Claire Atkinson completed IB Brief Follow Up Marj Jimenez completed Psychotherapy 30 (16-37*) min - 25633 (with patient and/or family member) Marj Jimenez completed IB Brief Follow Up Marj Jimenez completed Psychotherapy 30 (16-37*) min - 60422 (with patient and/or family member) Marj Jimenez completed IB Brief Follow Up Marj Jimenez completed Psychotherapy 30 (16-37*) min - 67907 (with patient and/or family member) Marj Jimenez completed [facility] Assessment - Roll Skinner Marj Jimenez completed Diagnostic evaluation (no medical) - 97118 Marj Jimenez completed Glucose Stick Vance Barcenas completed Diagnostic evaluation with medical - 95118 Forrest Barillas completed HEMOGLOBIN A1C - In House Meenu Edwards completed GOALS No Information Available HEALTH CONCERNS No Information Available
--- OUTSIDE RECORDS SUMMARY | 2019-06-03 11:25 | XMS REPORT ---
Author [facility] Address Unknown Phone Unavailable Care Team Providers Care Spring Inspector Name Role Phone WENDI HANSON Unavailable Unavailable Payers Payer Name Policy Type Policy Number Effective Date Expiration Date Problems This patient has no known problems. Allergies, Adverse Reactions, Alerts Allergy Name Allergy Type Status Severity Reaction(s) Onset Date Inactive Date Treating Clinician Comments No Known Allergies DA Active U 2015-07-16 00:00:00 Medications This patient has no known medications. Results Test Description Test Time Test Comments Text Results Atomic Results Result Comments US ABDOMEN COMPLETE 2019-05-24 10:25:00 [place] [address] Patient Name: MARIO JOHNSON MR #: [id number] : 1990 Age/Sex: 29/M Req #: [id number] Adm Physician: Ordered by: WENDI HANSON DO Report #: [id number] Location: Room/Bed: Procedure: [id number] US/US ABDOMEN COMPLETE Exam Date: 05/24/19 Exam Time: 0853 REPORT STATUS: Signed EXAM: US ABDOMEN COMPLETE DATE: 05/24/2019 8:40 AM INDICATION: Abdominal pain COMPARISON: None TECHNIQUE: Transverse and longitudinal vazquez scale and color doppler sonographic images of the upper abdomen were obtained. FINDINGS: There is no evidence of fluid or masses seen in the area of clinical concern in the right lower quadrant. LIVER 15.2 cm in the right midclavicular line. Normal echogenicity of the liver with normal contour, no masses. SPLEEN 12.7 cm in maximum diameter. Normal echogenicity, no masses. GALLBLADDER 1.4 cm echogenic lesion in the body of the gallbladder without associated acoustic shadowing, possibly representing tumefactive sludge. No gallbladder wall thickening, distension, stone, or pericholecystic fluid. Negative reported sonographic Santo's sign. Gallbladder wall measures 2 mm. BILE DUCTS No intra nor extra-hepatic biliary dilation. Common bile duct measures 4 mm PANCREAS: Visualized portions are normal. RIGHT KIDNEY: 10.1 cm Echogenicity: No rmal Collecting System: No hydronephrosis Stones: None Cyst/Mass: None LEFT KIDNEY: 10.6 cm Echogenicity: Normal Collecting System: No hydronephrosis Stones: None Cyst/Mass: None VESSELS: Aorta: Visualized portions are within normal size limits Inferior Vena Cava: Visualized portions are normal Main Portal Vein: 1.0 cm, normal size with hepatopetal flow. FREE FLUID: None IMPRESSION: 1.4 cm echogenic lesion in the body of the gallbladder without associated acoustic shadowing may represent tumefactive sludge. No sonographic evidence of cholecystitis. Signed by: Venecia Sandoval MD on 05/24/2019 10:26 AM Dictated By: VENECIA SANDOVAL MD [id number] Transcribed By: SIERRA on 05/24/19 1026 COPY TO: WENDI HANSON DO
[2019-06-03 15:45] VITALS: BP 98/73
--- NOTE | 2019-06-03 22:25 | Operative Report ---
DATE OF PROCEDURE: 06/03/2019 SURGEON: Walker Coyle MD PROCEDURES PERFORMED: Esophagogastroduodenoscopy with biopsy INDICATIONS FOR EGD: Upper abdominal pain, nausea, and vomiting. MEDICATIONS: The patient was done under MAC. Please see anesthesiologist's note. PROCEDURE IN DETAIL: With the patient in left lateral decubitus position, flexible fiberoptic Olympus gastroscope was introduced into the esophagus under direct visualization without any difficulty. There was some patchy erythema noted in distal esophagus. The scope was then advanced with ease into the stomach. Mucosa overlying the antrum and the body revealed some patchy erythema, [id number] edema, and biopsies were obtained and sent to stain for H. pylori. Pylorus was of normal contour and shape, was intubated with ease, and the scope was advanced all the way to the second portion of the duodenum. The scope was then withdrawn slowly and biopsies were obtained from the proximal second portion and duodenal bulb to rule out sprue. The scope was then withdrawn back into the stomach and retroflexed, and mucosa overlying the fundus and cardia appeared to be within normal limits. The scope was then straightened out. It was subsequently withdrawn. The patient tolerated the procedure well. IMPRESSION: 1. Distal esophagitis. 2. Gastritis, biopsied, biopsies sent to stain for H. pylori. 3. Rule out sprue. PLAN: Follow up histology. Initiate Protonix 40 mg one p.o. q.a.m. a.c. Walker Coyle MD [facility] [place] /[id number] cc: William Siu DO
== END | disposition home or self-care (01) ==
LOC: OR 11:21
PROVIDERS: ATTEND Internal Medicine Gastroenterology
DX: K20.9 Esophagitis, unspecified (principal); K29.50 Unspecified chronic gastritis without bleeding; K29.80 Duodenitis without bleeding; E11.9 Type 2 diabetes mellitus without complications
CPT/HCPCS: 43239; 88305; 88312; J2704

== ENCOUNTER → 2019-06-23 | Outpatient (CLI) | payer MEDICARE, OTHER ==
[~2019-06-23] MED LIST changes: -PROPOFOL IV EMULSION 10 MG/ML 50 ML VIAL ONE
--- NOTE | 2019-06-23 11:41 | Diagnostic Imaging Report ---
Hepatobiliary Scan with Gallbladder Ejection Fraction Clinical information: R10.10 Upper abdominal pain Technique: Following intravenous administration of 6.5 millicuries of Tc-99m mebrofenin, dynamic images of the abdomen in the anterior projection were obtained through 21 minutes. Sincalide (CCK analog) 1.2 micrograms was administered intravenously over 30 minutes with additional imaging for determination of gallbladder ejection fraction. Discussion: Perfusion of the liver is normal. Extraction of tracer by the liver parenchyma is normal. Tracer appears promptly within the biliary tract. The gallbladder begins to fill at 9 minutes post injection of tracer and fills adequately. Tracer is seen in the small bowel during the sincalide infusion. There is no contractile response by the gallbladder to the pharmacologic dose of sincalide. No emptying of the gallbladder occurs during the 30 minute infusion. Impression: 1. Filling of the gallbladder excludes acute cystic duct obstruction/acute cholecystitis. 2. The gallbladder ejection fraction is undefined as there is no emptying of the gallbladder during the infusion of sincalide. This absence of a contractile response to sincalide supports the clinical diagnosis of chronic cholecystitis/gallbladder dyskinesia. Signed by: Dr. Iris Magana M.D. on 06/23/2019 11:37 AM
== END ==
LOC: NM 08:14
PROVIDERS: ATTEND Internal Medicine Gastroenterology
DX: R10.10 Upper abdominal pain, unspecified (principal)
CPT/HCPCS: 78227; A9537

== ENCOUNTER → 2019-07-12 | Outpatient (CLI) | payer MEDICARE, OTHER ==
[2019-07-12 08:11] LABS: BASOPHILS # (AUTO) 0.1 (0.0-0.1); BASOPHILS % 0.6 % (0.0-1.0); EOSINOPHILS # (AUTO) 0.2 (0.0-0.4); EOSINOPHILS % 2.1 % (0.0-6.0); HEMATOCRIT 48.4 % (38.2-49.6); HEMOGLOBIN 16.3 g/dL (14.0-18.0); LYMPHOCYTES # (AUTO) 1.5 (1.0-3.2); LYMPHOCYTES % 19.1 % (18.0-39.1); MEAN CORPUSCULAR HEMOGLOBIN 29.2 pg (28-32); MEAN CORPUSCULAR HGB CONC 33.7 g/dL (31-35); MEAN CORPUSCULAR VOLUME 86.6 fL (81-99); MONOCYTES # (AUTO) 0.5 (0.2-0.8); MONOCYTES % 5.7 % (4.4-11.3); NEUTROPHILS # (AUTO) 5.8 (2.1-6.9); NEUTROPHILS % 71.4 % (38.7-80.0); PLATELET COUNT 225 x10e3/uL (140-360); RED BLOOD COUNT 5.59 x10e6/uL (4.3-5.7); RED CELL DISTRIBUTION WIDTH 11.8 % (11.7-14.4)
[2019-07-12 08:24] LABS: ANION GAP 13.5 mmol/L (8-16); BLOOD UREA NITROGEN 13 mg/dL (7-26); BUN/CREATININE RATIO 19 (6-25); CALCIUM 10.3 mg/dL (8.4-10.2); CARBON DIOXIDE 24 mmol/L (22-29); CHLORIDE 107 mmol/L (98-107); CREATININE, SERUM 0.69 mg/dL (0.72-1.25); EST GLOMERULAR FILTRATION RATE > 60 ML/MIN (60-); GLUCOSE 152 mg/dL (74-118); POTASSIUM 4.5 mmol/L (3.5-5.1); SODIUM 140 mmol/L (136-145)
[2019-07-12 17:33] LABS: ALANINE AMINOTRANSFERASE 33 IU/L (0-55); ALBUMIN 4.3 g/dL (3.5-5.0); ALBUMIN/GLOBULIN RATIO 1.3 (0.8-2.0); ALKALINE PHOSPHATASE 50 IU/L (40-150)
== END ==
LOC: LAB 07:45
PROVIDERS: ATTEND Surgery
DX: K82.8 Other specified diseases of gallbladder (principal)
CPT/HCPCS: 36415; 80053; 85025

== ENCOUNTER → 2019-07-19 | Outpatient (CLI) | payer OTHER ==
[~2019-07-19] MED LIST changes: +DIATRIZOATE MEGL/DIATRIZOA SOD 30 ML BTL PO ONE; +IOPAMIDOL 370 MG/ML 200 ML INFUS..BTL INJ ONE; +SODIUM CHLORIDE 0.9% 50ML 50 ML ONE
[2019-07-19 16:50] LABS: BLOOD UREA NITROGEN 11 mg/dL (7-26); BUN/CREATININE RATIO 16 (6-25); EST GLOMERULAR FILTRATION RATE > 60 ML/MIN (60-)
--- NOTE | 2019-07-19 18:19 | Diagnostic Imaging Report ---
EXAMINATION: CT of the abdomen and pelvis with contrast. TECHNIQUE: Spiral CT images of the abdomen and pelvis were performed from the lung bases to the lesser trochanters after the intravenous administration of 100 cc of Isovue 370 and the oral administration of dilute Gastrografin. Coronal and sagittal reformatted images were obtained. COMPARISON: Abdominal ultrasound 05/24/2019 CLINICAL HISTORY:Biliary dyskinesia, generalized abdominal pain for 4 months DISCUSSION: ABDOMEN/PELVIS: LOWER THORAX:Unremarkable. HEPATOBILIARY: Normal hepatic size and contour. Diffusely decreased attenuation of the hepatic parenchyma compared to the spleen, consistent with steatosis. No focal lesions. No intra or extrahepatic biliary ductal dilation. GALLBLADDER: No radio-opaque stones or sludge. No wall thickening. SPLEEN: Mild splenomegaly, measuring 12.7 cm in AP diameter. No focal lesions. PANCREAS: No focal masses or ductal dilatation. ADRENALS: No adrenal nodules. KIDNEYS/URETERS: No hydronephrosis, stones, or solid mass lesions. PELVIC ORGANS/BLADDER: Bladder is moderately distended and unremarkable. No focal lesions or wall thickening. Prostate is unremarkable. Seminal vesicles are unremarkable. PERITONEUM/RETROPERITONEUM: No free air or fluid. LYMPH NODES: No intra-abdominal, retroperitoneal, pelvic or inguinal lymphadenopathy. VESSELS: The celiac trunk,superior and inferior mesenteric and bilateral renal arteries are patent The portal, superior mesenteric and splenic veins are patent. GI TRACT: Contrast is noted in the stomach, proximal and distal small bowel. No bowel dilation or evidence of obstruction. Moderate amount of retained stool in the descending and sigmoid colon, which may reflect constipation. Mild circumferential thickening of the rectum (best seen in sagittal image 60). No significant surrounding stranding, free fluid or fluid collections. Appendix is well identified and normal in caliber. BONES AND SOFT TISSUE: No aggressive lytic lesions. Soft tissues are grossly unremarkable. IMPRESSION: 1. Mild circumferential thickening of the rectum. Although proctitis (inflammatory or infectious) is a consideration, no surrounding inflammatory fat stranding is noted. Direct visualization with sigmoidoscopy would be helpful for further evaluation. 2. Moderate amount of retained stool in the descending and sigmoid colon, which may reflect constipation. 3. No bowel dilation or evidence of obstruction. 4. Mild splenomegaly. 5. Diffuse hepatic steatosis. Signed by: Dr. Saran Temple M.D. on 07/19/2019 6:15 PM
== END ==
LOC: CT 15:30
PROVIDERS: ATTEND Surgery
DX: K82.8 Other specified diseases of gallbladder (principal)
CPT/HCPCS: 36415; 74177; 82565; 84520; Q9967

== ENCOUNTER → 2019-07-22 | Day surgery (SDC) | payer MEDICARE, OTHER ==
[~2019-07-22] MED LIST changes: +BUPIVACAINE 0.25%/EPI 30ML SDV INJ ONE; +CEFAZOLIN SOD 1 GM VIAL ONE; +CEFAZOLIN SOD 1 GM/NS 50ML 50 ML IV ONE; +DEXAMETHASONE SOD PHOS INJ 4 MG/ML VIAL ONE; -DIATRIZOATE MEGL/DIATRIZOA SOD 30 ML BTL PO ONE; +FENTANYL CITRATE/PF 100MCG/2 ML INJ ONE; -IOPAMIDOL 370 MG/ML 200 ML INFUS..BTL INJ ONE; +KETOROLAC TROMETHAMINE 30 MG/ML VIAL ONE; +LIDOCAINE HCL 2% LOCAL INJ 5 ML SDV VIAL INJ ONE; +MEPERIDINE HCL INJ 25 MG/ML VIAL ONE; +METOCLOPRAMIDE HCL 10 MG/2ML VIAL ONE; +MIDAZOLAM HCL 2 MG/2 ML VIAL ONE; +ONDANSETRON HCL INJ 2MG/ML 2ML 2 MG/ML VIAL ONE; +PROPOFOL IV EMULSION 10 MG/ML 20 ML VIAL ONE; +ROCURONIUM BROMIDE 10 MG/ML 5ML VIAL ONE; +SEVOFLURANE INHAL SOLN 250 ML PEN BTL ONE; -SODIUM CHLORIDE 0.9% 50ML 50 ML ONE
--- NOTE | 2019-07-22 11:39 | Operative Report ---
DATE OF PROCEDURE: 07/22/2019 SURGEON: Sudheer Solorio MD PREOPERATIVE DIAGNOSIS: Biliary dyskinesia. POSTOPERATIVE DIAGNOSIS: Chronic cholecystitis secondary to cholelithiasis. PROCEDURE PERFORMED: Laparoscopic cholecystectomy. ANESTHESIA: General endotracheal. ESTIMATED BLOOD LOSS: Minimal. DRAINS: None. COMPLICATIONS: None. 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 The patient was worked up by Dr. Walker Coyle. He had an endoscopy. He had ultrasound of the gallbladder as well as a colonoscopy. The patient's ultrasound of the gallbladder revealed mass in the distal part of the gallbladder and it was not clear whether this would present a tumor of the gallbladder versus sludge ball. There was no definite acoustic shadowing, so this was not considered definitely stone. Because of the possibility of tumour persistent, he underwent a preoperative CAT scan of the abdomen that revealed no evidence of gallbladder tumour or stone. There was no ductal dilatation on either test. He also underwent a colonoscopy. 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 INTRAOPERATIVE FINDINGS: There were extensive adhesions indicating chronic inflammation in the right upper quadrant with extensive adhesions of the omentum to the gallbladder. The colon appeared somewhat distended. After we lysed the adhesions, we eventually found out that the abnormality seen on the ultrasound, turned out to be a large stone that was impacted in the neck of the gallbladder and blocking the small cystic duct. The cystic artery was seen in an abnormal location anterior to the cystic duct and was the first structure that was encountered. The cholecystectomy was then performed laparoscopically and at the end of the procedure, there was no evidence of bile leak, bleeding, or any bowel injury. DESCRIPTION OF PROCEDURE: With the patient lying on the operative table in the supine position after administration of general anesthesia, he was prepped and draped for laparoscopic cholecystectomy. The procedure was begun by placing a Veress needle in the right upper quadrant midclavicular line because of a gastrostomy tube in the left upper quadrant. A gastrostomy tube site in the left upper quadrant was healed. The pneumoperitoneum was inflated to 15 mm of pressure after the saline drop test was performed and then we introduced a 5 mm trocar in that location. Then, we introduced the camera under direct vision, we placed a 10 mm umbilical trocar and then we completed the trocars insertion by placing a 10 mm subxiphoid port and then the right anterior axillary trocar 5 mm also was placed. The camera introduced. There were extensive adhesions from the omentum to the area of the gallbladder. Those were sharply lysed until we were able to expose the gallbladder after traction on the fundus and the gallbladder with two 5 mm trocars. We proceeded with dissection as we were carefully working our way down to the neck of the gallbladder within the inflammatory process. We made a rent in the gallbladder and bile came out. It was not clear to me at that point why I had entered the puncture of the gallbladder and then continued the dissection in the hepatoduodenal ligament carefully and methodically until we identified the structure that was going directly into the gallbladder. At this point, I tried to identify the common duct, but it was not seen. However, because they the structure was clearly gone into the gallbladder, I went ahead and transected between titanium clips and then I continued the dissection looking for the presumed cystic artery. However, as I am mobilized the gallbladder, I came to a point in the neck of the gallbladder where the mass was felt. It felt like it was stone. At this point, we went ahead and continued the dissection. We mobilized the mass around what appeared to be a structure in its neck and this nocturnist to be a 1.5 cm stone that was impacted in the neck of the gallbladder, obstructing a small nondilated cystic duct. Because of the chronic inflammation and the alteration of the anatomy from the PEG, I never definitely identified the common duct. However, the cystic duct was identified clearly as we were going into the gallbladder. At that point, we transected the cystic duct with two titanium clips, staying away from the hepatoduodenal ligament and any and ductal structures in that location. After we did that, we continued the dissection and then detached the gallbladder from the liver bed. We then placed the gallbladder in an endobag and removed it through the umbilical port. We irrigated the right upper quadrant after ascertaining that there was no bile leak, no apparent bowel injury, or no bleeding. After irrigation of the right upper quadrant until the effluent was clear, we removed the gallbladder through the endobag. We then reintroduced the pneumoperitoneum and went ahead and then inspected the field again and as previously stated, the field was clear. There was no bile leak or any bowel injury. At this point, we removed the trocars, released the pneumoperitoneum, and closed the wound using 0-Vicryl for the umbilical fascia, 3-0 Vicryl for the subcutaneous tissue in the location and the subxiphoid port was closed using 3-0 Vicryl. Then, the skin of all the ports were closed using 5-0 Vicryl. Local anesthesia was given at all the port sites with 0.25% Marcaine with epinephrine. Sterile dressing was applied. The patient's mother was informed on the intraoperative findings and taken to the recovery room in stable condition. He tolerated the procedure well. MD DEBBI Sales/FARHAN /[id number]
[2019-07-22 12:30] VITALS: BP 123/86
--- OUTSIDE RECORDS SUMMARY | 2019-07-29 11:40 | XMS REPORT ---
Author Author Admin, [place] Organization Unknown Address Unknown Phone Unavailable PROBLEMS Condition Status Date Provider Notes High risk medication management active Forrest Atri Diabetes mellitus, type II active Natali Santos Polydipsia active Natali Santos Polyuria active Natali [...] Encounter Forrest Atri Forrest Atri Sheryl Esparza [facility] UNK - [facility] - Ambulatory Encounter Kemar Lawson [facility] UNK - Ambulatory Encounter Forrest Atri Forrest Atri [facility] UNK - Ambulatory Encounter Forrest Atri Forrest Atri [facility] UNK - Ambulatory Encounter Forrest Atri Forrest Atri Sheryl Esparza [facility] UNK - Ambulatory Encounter Forrest Atri Forrest Atri [facility] UNK - Ambulatory Encounter Forrest Atri Forrest Atri Sabrina Jamie [facility] UNK - Ambulatory Encounter Forrest Atri [facility]ulatory Encounter Forrest Atri Forrest Atri [facility] UNK - Ambulatory Encounter Forrest Atri Forrest Atri Sheryl Esparza [facility] UNK - Ambulatory Encounter Forrest Atri [facility]ulatory Encounter Forrest Atri Forrest Atri Rosa Elena Saucedo Esparza [facility] High risk medication management - Ambulatory Encounter Forrest Atri Forrest Atri [facility] UNK - Ambulatory Encounter Forrest Atri Forrest Atri Cookie Jo [facility] Services Contact Center UNK - Ambulatory Encounter Forrest Atri Forrest Atri [facility] UNK - Ambulatory Encounter Forrest Atri Forrest Atri Sabrina Jamie [facility] UNK - Ambulatory Encounter Forrest Atri Forrest Atri [facility] UNK - Ambulatory Encounter Forrest Atri [facility] - Ambulatory Encounter Sheryl Esparza [facility] UNK - Ambulatory Encounter Forrest Atri Forrest Atri Sharon Metzl Sheryl Sandhutiz [facility] UNK - Ambulatory Encounter Forrest Atri Forrest Atri [facility] UNK - Ambulatory Encounter Forrest Atri Forrest Atri [facility] UNK - Ambulatory Encounter Forrest Atri Forrest Atri Alejandrina Kassandra [facility] UNK - Ambulatory Encounter Forrest Atri Forrest Atri Isalay Amos [facility] UNK - Ambulatory Encounter Forrest Atri Forrest Atri Randi Archuleta [facility] Services Contact Center UNK - Ambulatory Encounter Moni Hannaran Forrest Atri Forrest Atri [facility] UNK - Ambulatory Encounter Forrest Atri Forrest Atri [facility] UNK - Ambulatory Encounter Forrest Atri Forrest Atri Zenon Montes [facility] UNK - Ambulatory Encounter Forrest Atri Forrest Atri [facility] UNK - Ambulatory Encounter Natali Santos [facility] UNK - Ambulatory Encounter Natali Santos [facility] UNK - Ambulatory Encounter Forrest Atri Forrest Atri Cintia Gonzalez [facility] Services Contact Center UNK - Ambulatory Encounter Forrest Atri Forrest Atri [facility] UNK - Ambulatory Encounter Natali Santos [facility] UNK - Ambulatory Encounter Natali Santos [facility] UNK - Ambulatory Encounter Forrest Atri Forrest Atri Piper Talib [facility] UNK - Ambulatory Encounter Forrest Atri Forrest Atri Zenon Montes [facility] UNK - Ambulatory Encounter Forrest Atri Forrest [facility]ri [facility] - Ambulatory Encounter Forrest Atri Forrest Atri Sheryl Esparza [facility] UNK - Ambulatory Encounter Forrest Atri Forrest Atri [facility] UNK - Ambulatory Encounter Forrest Atri Forrest Atri [facility] UNK - Ambulatory Encounter Natali Snatos [facility] Diabetes mellitus, type II - Ambulatory Encounter Forrest Atri Forrest Atri Marj Jimenez [facility] UNK - Ambulatory Encounter Marj Jimenez [facility] UNK - Ambulatory Encounter Marj Jimenez [facility] UNK - Amb[facility] - Ambulatory Encounter Natali Santos [facility] Practice UNK - Ambulatory Encounter LSJ Lab Support Desktop [facility] Natali Santos [facility] UNK - Ambulatory Encounter Fax Status [facility] UNK - Ambulatory Encounter Fax Status [facility] UNK - Ambulatory Encounter Fax Status [facility] UNK - Ambulatory Encounter Perla Mccain [facility] UNK - Ambulatory Encounter Forrest Atri Forrest Atri Sheryl Esparza [facility] UNK - Ambulatory Encounter Natali Santos [facility] UNK - Ambulatory Encounter Natali Cr [facility] PolyuriaPolydipsia - Ambulatory Encounter Anabelle Santos [facility] Contact Center UNK - Ambulatory Encounter Forrest Atri Forrest Atri Marj Jimenez [facility] UNK - Ambulatory Encounter Marj Jimenez [facility] UNK - Ambulatory Encounter Cintia Garcia [facility] UNK - Ambulatory Encounter Cintia Guzmanarado [facility] UNK - Ambulatory Encounter [facility] En[facility] Forrest Atri Forrest Atri Piper Mayers [facility] UNK - Ambulatory Encounter Forrest Atri Forrest Atri [facility] UNK - Ambulatory Encounter Forrest Atri Forrest Atri [facility] UNK - Ambulatory Encounter Forrest Atri Forrest Atri LinkLogic [facility] UNK - Ambulatory Encounter Forrest Atri Forrest Atri [facility] UNK - Ambulatory Encounter Forrest Atri Forrest Atri Sheryl Esparza [facility] UNK - Ambulatory Encounter Elmer Solorio [facility] UNK - Ambulatory Encounter Marj Jimenez [facility] UNK - Ambulatory Encounter Vance Hahnlizet Rosenthal [facility] Weight loss abnormalAbdominal pain, generalizedAllergic rhinitis - Ambulatory Encounter Forrest Atri Forrest Atri [facility] UNK - Ambulatory Encounter Forrest Atri Forrest Atri [facility] UNK - Ambulatory Encounter Forrest Atri Forrest Atri [facility] UNK - Ambulatory Encounter Forrest Atri Forrest Atri [facility] UNK - Ambulatory Encounter Marj Jimenez [facility] UNK - Ambulatory Encounter [facility] UNK - Ambulatory Encounter [facility] UNK - Ambulatory Encounter Forrest Atri Forrest Atri [facility] UNK - Ambulatory Encounter Forrest Atri Forrest Atri Sheryl Esparza [facility] Impulse control disorder, unspecified - Ambulatory Encounter Sebastien Sampson [facility] UNK - Ambulatory Encounter Claire Atkinson [facility] UNK - Ambulatory Encounter Forrest Atri Forrest Atri [facility] UNK - Ambulatory Encounter Forrest Atri Forrest Atri [facility] UNK - Ambulatory Encounter Forrest Atri Forrest Atri [facility] UNK - Ambulatory Encounter Forrest Atri Forrest Atri [facility] UNK - Ambulatory Encounter Forrest Atri Forrest Atri LinkLogic [facility] UNK - Ambulatory Encounter Forrest Atri Forrest Atri LinkLogic [facility] UNK - Ambulatory Encounter Forrest Atri Forrest Atri LinkLogic [facility] UNK - Ambulatory Encounter Marj Sampson [facility] UNK - Ambulatory Encounter Elmer Solorio [facility] UNK - Ambulatory Encounter Madhumita [place] Madhumita [place] Surekha Solorio [facility] UNK - Ambulatory Encounter Frorest Atri Forrest Atri LinkLogic [facility] UNK - Ambulatory Encounter Madhumita [place] Madhumita [place] [facility] UNK - Ambulatory Encounter Marj Jimenez [facility] UNK - Ambulatory Encounter Madhumita [place] Madhumita [place] Phoebe Zurita [facility] Abdominal pain, generalizedGastroenteritis - Ambulatory Encounter Ashanti Richardson [facility] UNK - Ambulatory Encounter Elmer Solorio [facility] - Ambulatory Encounter Marj Jimenez [facility] UNK - Ambulatory Encounter Forrest Atri Forrest Atri [facility] UNK - Ambulatory Encounter Forrest Atri Forrest Atri [facility] UNK - Ambulatory Encounter Forrest Atri Forrest Atri Sheryl Esparza [facility] UNK - Ambulatory Encounter Vance Solorio Forrest Atri Forrest Atri Bettina Cr [facility] Hyperglycemia - Ambulatory Encounter Rebecca Shields [facility] UNK - Ambulatory Encounter Marj Gabriel [facility] UNK - Ambulatory Encounter Forrest Atri Forrest Atri Zenon Montes [facility] Adjustment disorder with conduct disturbance - [facility] - [facility] Encounter Leydi Christy [facility]K - Ambulatory Encounter Marj Jimenez [facility] UNK - Ambulatory Encounter Elmer Solorio [facility] UNK - Ambulatory En[facility] Encounter Elmer Solorio [facility] - Ambulatory Encounter Elmer Solorio [facility] UNK - Ambulatory Encounter Elmer Solorio [facility] UNK - Ambulatory Encounter Elmer Solorio [facility] UNK - Ambulatory Encounter Elmer Solorio [facility] UNK - Ambulatory Encounter Rebecca Arnold [facility] Intellectual disability, moderateScreening for diabetes [...] MEDICATION USE Medication Instructions Dates Provider Comments ATORVASTATIN CALCIUM 10 MG ORAL TABLET 1 tab By Mouth take at bedtime [facility] Atri PROTONIX 40 MG ORAL TABLET DELAYED RELEASE 1 tab daily [facility] Atri PIOGLITAZONE HCL 15 MG ORAL TABLET 1 tab daily [facility] Atri FARXIGA TABLET [facility] Atri ABILIFY 2 MG TABS TAKE ONE (1) TABLET(S) BY MOUTH DAILY FOR ANGER, MOOD. - [facility] Atri ARIPIPRAZOLE 10MG TABLET TAKE ONE (1) TABLET(S) BY MOUTH ONCE A DAY FOR MOOD. [facility] Atri LITHIUM CARBONATE 450MG ER TAB TAKE TWO (2) TABLET(S) BY MOUTH AT BEDTIME FOR MOOD. [facility] Atri VALIUM 5 MG ORAL TABLET 1 tab By Mouth q5pm for anxiety [facility] Atri GUANFACINE HCL 1 MG ORAL TABLET 1 tab By Mouth q3pm and take at bedtime for mood, impulse control - [facility] Atri GLIPIZIDE 10 MG ORAL TABLET 1 tablet by mouth daily - [facility] Atri METFORMIN HCL 500 MG ORAL TABLET 1 by mouth once a day - [facility] Atri CHLORPROMAZINE HCL 50 MG ORAL TABLET 1/2 tab By Mouth Twice a Day for one week, then increase to 1 tab By Mouth Twice a Day for mood - [facility] Atri DEPAKOTE 500 MG ORAL TABLET DELAYED RELEASE 1 tab By Mouth Twice a Day for two weeks then stop - [facility] Atri FLONASE ALLERGY RELIEF 50 MCG/ACT NASAL SUSPENSION [...] Twice a Day for impulse control - [facility] Atri BLOOD GLUCOSE TEST IN VITRO STRIP Dispense [...] Twice a Day for mood - Forrest Atri FLUOXETINE HCL 10 MG ORAL CAPSULE 1 by mouth daily - Forrest Atri BENZTROPINE MESYLATE 0.5 MG ORAL TABLET 1 [...] history E&M Single. Not homeless. Born in [facility]. City: [place]. State: [place]. Loves with mother, pt is intellectually disabled Not employed. Gender identity: Male. Forrest Atri " social history reviewed E&M reviewed today Forrest Atri drug use, illicit Never Forrest Atri " alcohol use Never Forrest Atri " smoking status never smoker Forrest Atri " social history E&M Single. Not homeless. Born in [place] City: [place]. State: [place]. Loves with mother, pt is intellectually disabled Not employed. Gender identity: Male. Forrest Atri " social history reviewed E&M reviewed today Forrest Atri drug use, illicit Never Forrest Atri " alcohol use Never Forrest Atri " smoking status never smoker Forrest Atri " social history E&M Single. Not homeless. Born in [place] City[place]. State: [place] Loves with mother, pt is intellectually disabled Not employed. Gender identity: Male. Forrest Atri " social history reviewed E&M reviewed today Forrest Atri drug use, illicit Never Forrest Atri " alcohol use Never Forrest Atri " smoking status never smoker Frorest Atri " social history E&M Single. Not homeless. Born in [facility]. City: [place]. State: [place] Loves with mother, pt is intellectually disabled Not employed. Gender identity: Male. Forrest Atri " social history reviewed E&M reviewed today Forrest Atri drug use, illicit Never Forrest Atri " alcohol use Never Forrest Atri " smoking status never smoker Forrest Atri " social history E&M Single. Not homeless. Born in [facility]. City: [place]. State: [place] Loves with mother, pt is intellectually disabled Not employed. Gender identity: Male. Forrest Atri " social history reviewed E&M reviewed today Forrest Atri drug use, illicit Never Forrest Atri " alcohol use Never Forrest Atri " smoking status never smoker Forrest Atri " social history E&M Single. Not homeless. Born in [facility]. City: [place]. State: [place] Loves with mother, pt is intellectually disabled Not employed. Gender identity: Male. Forrest Atri " social history reviewed E&M reviewed today Forrest Atri social history E&M Single. Not homeless. Born in [facility]. City: [place]. [place]: [place] Loves with mother, pt is intellectually disabled Not employed. Gender identity: Male. Forrest Atri " social history reviewed E&M reviewed today Forrest Atri social history E&M Single. Not homeless. Born in [facility]. City: [place]. [place]: [place] Loves with mother, pt is intellectually disabled Not employed. Gender identity: Male. Forrest Atri " social history reviewed E&M reviewed today Forrest Atri drug use, illicit Never Forrest Atri " alcohol use Never Forrest Atri " smoking status never smoker Forrest Atri " social history E&M Single. Not homeless. Born in [facility]. City: [place]. [place]: [place] Loves with mother, pt is intellectually disabled Not employed. Gender identity: Male. Forrest Atri " social history reviewed E&M reviewed today Forrest Atri drug use, illicit Never Forrest Atri " alcohol use Never Forrest Atri " smoking status never smoker Forrest Atri " social history E&M Single. Not homeless. Born in [facility]. City: [place]. [place]: [place] Loves with mother, pt is intellectually disabled Not employed. Gender identity: Male. Forrest Atri " social history reviewed E&M reviewed today Forrest Atri drug use, illicit Never Forrest Atri " alcohol use Never Forrest Atri " smoking status never smoker Forrest Atri " social history E&M Single. Not homeless. Born in [facility]. City: [place]. [place]: [place] Loves with mother, pt is intellectually disabled [...] history E&M Single. Not homeless. Born in [facility]. City: [place]. [place]: [place] Loves with mother, pt is intellectually disabled Not employed. Gender identity: Male. Forrest Atri " social history reviewed E&M reviewed today Forrest Atri drug use, illicit Never Bettina Pool " alcohol use Never Bettina Pool " social history E&M Single. Not homeless. Born in [facility]. City: [place]. State: [place] Loves with mother, pt is intellectually disabled Not employed. Gender identity: Male. Bettina Pool " social history reviewed E&M reviewed today Bettina Pool " assessment of health literacy ([facility] 2014 Standards, 3C10) Adequate Bettina Pool " passive cigarette smoke exposure No Bettina Pool " smoking status never smoker Bettina Pool time of call 01/27/2018 10:59 AM Anabelle Christy drug use, illicit Never Forrest Atri " alcohol use Never Forrest Atri " smoking status never smoker Forrest Atri " social history E&M Single. Not homeless. Born in [facility]. City: [place]. [place]: [place] Loves with mother, pt is intellectually disabled Not employed. Gender identity: Male. Forrest Atri " social history reviewed E&M reviewed today Forrest Atri passive cigarette smoke exposure No Marj Jimenez alcohol use Never Forrest Atri " smoking status never smoker Forrest Atri " social history E&M Single. Not homeless. Born [place] City[place]. State: [place] Loves with mother, pt is intellectually disabled [...] history E&M Single. Not homeless. Born in [facility]. City: [place]. [place]: [place] Loves with mother, pt is intellectually disabled Not employed. Gender identity: Male. Rosa Elena Rosenthal " social history reviewed E&M reviewed today Rosa Elena Rosenthal " assessment of health literacy ([facility] 2014 Standards, 3C10) Adequate Rosa Elena Rosenthal " passive cigarette smoke exposure No Rosa Elena Rosenthal " smoking status never smoker Rosa Elena Rosenthal passive cigarette smoke exposure No Marj Jimenez drug use, illicit Never Forrest Atri " alcohol use Never Forrest Atri " smoking status never smoker Forrest Atri " social history E&M Single. Not homeless. Born in [facility]. City: [place]. [place]: [place] Loves with mother, pt is intellectually disabled Not employed. Gender identity: Male. Forrest Atri " social history reviewed E&M reviewed today Forrest Atri Exercise Program Referral Janell Soloiro " Weight Management Counseling Provided Janell Solorio " Nutrition intervention Janell Solorio " drug use, illicit Never Surekha Montenegro " alcohol use Never Surekha Montenegro " passive cigarette smoke exposure No Surekha Montenegro " smoking status never smoker Surekha Montenegro drug use, illicit Never Phoebe Parminder " alcohol use Never Phoebe Parminder " social history E&M Single. Not homeless. Born in [facility]. City: [place]. [place]: [place] Loves with mother, pt is intellectually disabled Not employed. Gender identity: Male. Phoebe Zurita " social history reviewed E&M reviewed today Phoebe Zurita " passive cigarette smoke exposure No Phoebe uZrita " smoking status never smoker Phoebe Zurita " assessment of health literacy ([facility] 2014 Standards, 3C10) Adequate Phoebe Parminder " Exercise Program Referral T Phoebe Parminder " Weight Management Counseling Provided T Phoebe Parminder " Nutrition intervention T Phoebe Zurita drug use, illicit Never Forrest Atri " alcohol use Never Forrest Atri " smoking status never smoker Forrest Atri " social history E&M Single. Not homeless. Born in [facility]. City: [place]. [place]: [place] Loves with mother, pt is intellectually disabled Not employed. Gender identity: Male. Forrest Atri " social history reviewed E&M reviewed today Forrest Atri drug use, illicit Never Marj Jimenez " alcohol use Never Marj Jimenez " smoking status never smoker Marj Jimenez Exercise Program Referral Janell Solorio " Weight Management Counseling Provided Janell Solorio " Nutrition intervention T Elmer Solorio " drug use, illicit Never Bettina Pool " alcohol use Never Bettina Pool " social history E&M Single. Not homeless. Born in [facility]. City: [place]. State: [place] Loves with mother, pt is intellectually disabled Not employed. Gender identity: Male. Bettina Pool " social history reviewed E&M reviewed today Bettina Pool " passive cigarette smoke exposure No Bettina Pool " smoking status never smoker Bettina Pool " assessment of health literacy ([facility] 2014 Standards, 3C10) Adequate Bettina Pool social history E&M Single. Not homeless. Born in [facility]. City: [place]. [place]: [place] Loves with mother, pt is intellectually disabled Not employed. Gender identity: Male. Forrest Atri " social history reviewed E&M reviewed today Forrest Atri time of call 10/16/2017 2:10 PM Ledyi Christy Exercise Program Referral Janell Solorio " Weight Management Counseling Provided Janell Solorio " Nutrition intervention Janell Solorio " social history E&M Single. Not homeless. Born in [facility]. City: [place]. State: [place] Loves with mother, pt is intellectually disabled Not employed. Gender identity: Male. Ashanti Leungierrez " home/family situation, assessment Loves with mother, pt is intellectually disabled Ashanti Leungierrez " patient considered to be homeless No Ashanti Leungierrez " drug use, illicit Never Ashanti Leungierrez " alcohol use Never Ashanti Lorarez " social history reviewed E&M reviewed today Ashanti Richardson " passive cigarette smoke exposure Yes Ashanti Dylan " smoking status never smoker Ashanti Leungierrez " assessment of health literacy ([facility] 2014 Standards, 3C10) Low Ashanti Leungierrez FUNCTIONAL STATUS No Information Available MENTAL STATUS [...] mental status assessment, process able to abstract, derailments Forrest Atri " mental status assessment, sensorium alert, attentive, clear Forrest Atri " affect (mental status exam) calm Forrest Atri " mood (mental status exam) pleasant Forrest Atri " mental status assessment, speech activity normal flow, normal pace, normal pressure, normal rate, normal tone, normal volume Forrest Atri " mental status assessment, motor activity normal gait, normal posture, agitated, fidgety, hyperactive Forrest Atri " behavior (mental status exam) candid Forrest Atri " mental appearance (mental status [...] appropriate dress, looks like stated age, kannan Forrest Atri mental status assessment, judgment poor [...] appropriate dress, looks like stated age, kannan Forrest Atri mental status assessment, judgment poor [...] mental status assessment, sensorium alert, attentive, clear Ofrrest Atri " affect (mental status exam) labile [...] appropriate dress, looks like stated age, kannan Clayton Atri mental status assessment, judgment poor Marj [...] belligerent, negativistic, poor eye contact, uncooperative Marj Jimenez " mental appearance (mental status exam) adequate hygiene, appropriate dress, looks like stated kannan fu mental status assessment, judgment good Marj Jimenez [...] " mood (mental status exam) frustrated Marj Murraydez " mental status assessment, speech activity only when prompted, slurred, soft- spoken, stuttering Marj Jimenez " mental status assessment, motor activity normal gait, normal posture, agitated, fidgety Marj Murraydez " behavior (mental status exam) appropriate, candid, cooperative, polite, responsive Marj Murraydez " mental appearance (mental status [...] Disorder Questionnaire - Question 2 0 Bettina Tayo " Generalized Anxiety Disorder Questionnaire - Question 1 0 Bettina Cr mental status assessment, judgment good Forrest Atri [...] appropriate dress, looks like stated age, kannan Sandovalbersidney Murraydez mental status assessment, judgment good Forrest [...] Questionnaire - Question 1 0 Rosa Elena Rosenthal mental status assessment, judgment good Marj Jimenez [...] Marj Jimenez mental status assessment, judgment good Forrest [...] [place] mental status assessment, judgment good Marj Murraydez " insight (mental status exam) good Marj [...] looks like stated age, neat Marj Jimenez Generalized Anxiety Disorder Questionnaire - Question 2 0 Phoebe Zurita " Generalized Anxiety Disorder Questionnaire - Question 1 0 Phoebe Zurita mental status assessment, judgment good Forrest Atri [...] age, neat Marj Jimenez mental status assessment, process tangential Marj Tony " mood (mental status exam) anxious, pleasant Marj Jimenez " mental status assessment, judgment fair Marj Tony " insight (mental status exam) fair Marj Jimenez " Mental Status Exam: intelligence oriented to person, oriented to place, oriented to situation, oriented to reality, previous retardation diagnosis Marj Jimenez " thought content (mental status exam) (E&M) lucid Marj Jimenez " mental status assessment, sensorium alert, attentive Marj Jimenez " affect (mental status exam) congruent, normal intensity, normal range Marj Jimenez " mental status assessment, speech activity normal [...] name Policy type / Coverage type Covered alliance party ID [facility] Medicare [id number] [employer] Medicare [id number] [employer]/PPO MEDICARE MedicareB [id number] ADVANCE DIRECTIVES No Information Available TREATMENT PLAN Date Name Lipid Panel Pes[place] (Eskalith), Serum Comp. Metabolic Panel (14) CBC With Differential/Platelet TSH+T4+T3H [place] (Eskalith), Serum Pes[place]igo (Eskalith), Serum TSH [place] (Eskalith), Serum TSH [place] (Eskalith), Serum TSH+T4+T3H Comp. Metabolic Panel (14) Valproic Acid (Depakote),S Valproic Acid (Depakote),S Urine Culture, Routine Valproic Acid (Depakote),S Valproic Acid (Depakote),S Urinalysis with Micro on Positives TSH Hemoglobin A1c Lipid Panel Comp. Metabolic Panel (14) CBC With Differential/Platelet Behavioral Health - Psychological Testing Est Patient Exp Problem - 65519 Est Patient Exp Problem - 61886 Est Patient Exp Problem - 41802 Est Patient Exp Problem - 55705 Est Patient Exp Problem - 87329 Est Patient Exp Problem - 20274 Est Patient Detailed - 83894 Est Patient Exp Problem - 65475 Est Patient Detailed - 50928 Est Patient Exp Problem - 82227 Est Patient Detailed - 31284 Est Patient Detailed - 34274 IB Brief Follow Up Psychotherapy 30 (16-37*) min - 53511 (with patient and/or family member) IB Brief Follow Up Psychotherapy 30 (16-37*) min - 48808 (with patient and/or family member) Est Patient Detailed - 10346 Glucose Stick Urinalysis - Dip only - In House Est Patient Exp Problem - 73503 Est Patient Detailed - 70110 IB Brief Follow Up Psychotherapy 30 (16-37*) min - 78956 (with patient and/or family member) Est Patient Exp Problem - 24322 Est Patient Exp Problem - 47727 IB Brief Follow Up Psychotherapy 30 (16-37*) min - 63843 (with patient and/or family member) Est Patient Detailed - 44974 IB Brief Follow Up Psychotherapy 30 (16-37*) min - 86217 (with patient and/or family member) Glucose Stick Est Patient Exp Problem - 07127 [employer] Specialist IB Brief Follow Up Psychotherapy 30 (16-37*) min - 85423 (with patient and/or family member) IB Brief Follow Up Psychotherapy 30 (16-37*) min - 15000 (with patient and/or family member) Est Patient Exp Problem - 45283 Est Patient Detailed - 65912 IB Brief Follow Up Psychotherapy 30 (16-37*) min - 69481 (with patient and/or family member) [facility] 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 Diagnostic evaluation (no medical) - 56742 Glucose Stick Est Patient Exp Problem - 78016 Diagnostic evaluation with medical - 40699 Integrated Behavioral Health Assessment (IBH) HEMOGLOBIN A1C - In House New Patient Detailed - 74666 Behavioral Health - Psychiatry Dental - Internal Behavioral Health - Therapy HISTORY OF PROCEDURES Procedure Date Procedure Name Provider Procedure Notes Status [facility] Brief Follow Up Marj Jimenez completed Psychotherapy 30 (16-37*) min - 54593 (with patient and/or family member) Marj Jimenez completed [facility] Brief Follow Up Marj Jimenez completed Psychotherapy 30 (16-37*) min - 50481 (with patient and/or family member) Marj Jimenez completed Glucose Stick Natali Santos completed Urinalysis - Dip only - In House Natali Santos completed IB Brief Follow Up Marj Jimenez completed Psychotherapy 30 (16-37*) min - 03965 (with patient and/or family member) Marj Jimenez completed IB Brief Follow Up Marj Jimenez completed Psychotherapy 30 (16-37*) min - 87751 (with patient and/or family member) Marj Jimenez completed IB Brief Follow Up Marj Jimenez completed Psychotherapy 30 (16-37*) min - 34613 (with patient and/or family member) Marj Jimenez completed Glucose Stick Claire Atkinson completed IB Brief Follow Up Marj Jimenez completed Psychotherapy 30 (16-37*) min - 64171 (with patient and/or family member) Marj Jimenez completed IB Brief Follow Up Marj Jimenez completed Psychotherapy 30 (16-37*) min - 99831 (with patient and/or family member) Marj Jimenez completed IB Brief Follow Up Marj Jimenez completed Psychotherapy 30 (16-37*) min - 45223 (with patient and/or family member) Marj Jimenez completed [facility] 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
--- OUTSIDE RECORDS SUMMARY | 2019-07-29 11:41 | XMS REPORT ---
Author Author Admin, [place] Organization Unknown Address Unknown Phone Unavailable PROBLEMS Condition Status Date Provider Notes Gallbladder disease active Amarilys Pinon High risk medication management active Forrest Atri [...] Provider Location Encounter Diagnosis - Ambulatory Encounter Amarilys Pinon [facility] UNK - Ambulatory Encounter Amarilys Kemp [facility] Gallbladder disease - Ambulatory Encounter Forrest Atri Forrest Atri Thida Jordan [facility] UNK - Ambulatory Encounter Cyndienoman King [facility] UNK - Ambulatory Encounter Kemar Pressleysridevi [facility] UNK - Ambulatory Encounter Forrest Atri Forrest Atri [facility] UNK - Ambulatory Encounter Forrest Atri Forrest Atri [facility] UNK - Ambulatory Encounter Forrest Atri Forrest Atri Sheryl Esparza [facility] UNK - Ambulatory Encounter Forrest Atri Forrest Atri [facility] UNK - Ambulatory Encounter Forrest Atri Forrest Atri Sabrina Jamie [facility] UNK - Ambulatory Encounter Forrest Atri Forrest Atri [facility] UNK - Ambulatory Encounter Forrest Atri Forrest Atri [facility] UNK - Ambulatory Encounter Forrest Atri Forrest Atri Sheryl Esparza [facility] UNK - Ambulatory Encounter Forrest Atri Forrest Atri [facility] UNK - Ambulatory Encounter Forrest Atri Forrest Atri Rosa Elena Esparza [facility] High risk medication management - Ambulatory Encounter Forrest Atri Forrest Atri [facility] UNK - Ambulatory Encounter Forrest Atri Forrest Atri Cookie Jo [facility] UNK - Ambulatory Encounter Forrest Atri Forrest Atri [facility] UNK - Ambulatory Encounter Forrest Atri Forrest Atri Sabrina Jamie [facility] UNK - Ambulatory Encounter Forrest Atri Forrest Atri [facility] UNK - Ambulatory Encounter Forrest Atri [facility] Encounter Sheryl Esparza [facility] UNK - Ambulatory Encounter Forrest Atri Forrest Atri Sharon Mathewia Esparza [facility] UNK - Ambulatory Encounter Forrest Atri Forrest Atri [facility] UNK - Ambulatory Encounter Forrest Atri Forrest Atri [facility] UNK - Ambulatory Encounter Forrest Atri Forrest Atri Alejandrina Cannon [facility] UNK - Ambulatory Encounter Forrest Atri Forrest Atri Isa Amos [facility] UNK - Ambulatory Encounter Forrest Atri Forrest Atri Randi Archuleta [facility] UNK - Ambulatory Encounter Moni Hannaran Forrest Atri Forrest Atri [facility] UNK - Ambulatory Encounter Forrest Atri Forrest Atri [facility] UNK - Ambulatory Encounter Forrest Atri Forrest Atri Zenon Montes [facility] UNK - Ambulatory Encounter Forrest Atri Forrest [facility] UNK - Ambulatory Encounter [facility] - [facility] En[facility] - Ambulatory Encounter Forrest Atri Forrest Atri Cnitia ChristyFahadcolt [facility] UNK - Ambulatory Encounter Forrest Atri Forrest Atri [facility] UNK - Ambulatory Encounter Natali Santos [facility] UNK - Ambulatory Encounter Natali Santos [facility] - Ambulatory Encounter Forrest Atri Forrest Atri Piper Mayers [facility] UNK - Ambulatory Encounter Forrest Atri Forrest Atri Zenon Montes [facility] UNK - Ambulatory Encounter Forrest Atri Forrest Atri [facility] - Ambulatory Encounter Forrest Atri Forrest Atri Sheryl Esparza [facility] UNK - Ambulatory Encounter Forrest Atri Forrest Atri [facility] UNK - Ambulatory Encounter Forrest Atri Forrest Atri [facility] - Ambulatory Encounter Natali Santos [facility] Diabetes mellitus, type II - Ambulatory Encounter Forrest Atri Forrest Atri Marj Jimenez [facility] UNK - Ambulatory Encounter Marjtawanna Jimenez [facility] UNK - Ambulatory Encounter Marjsidney Jimenez [facility] UNK - Ambulatory Encounter Marj Aguilar [facility] UNK - Ambulatory Encounter Natali Santos [facility] UNK - Ambulatory Encounter [facility] Support Desktop LinkRemy Santos [facility] UNK - Ambulatory Encounter Fax Status [facility] UNK - Ambulatory Encounter Fax Status [facility] UNK - Ambulatory Encounter Fax Status [facility] UNK - Ambulatory Encounter Perla Mccain [facility] UNK - Ambulatory Encounter Forrest Atri Forrest Atri Sheryl Esparza [facility] UNK - Ambulatory Encounter Natali Santos [facility] UNK - Ambulatory Encounter [facility] PolyuriaPolydipsia - Ambulatory Encounter Anabelle Santos [facility] UNK - Ambulatory Encounter Forrest Atri Forrest Atri Marj Jimenez [facility] UNK - Ambulatory Encounter Marj Jimenez [facility] UNK - Ambulatory Encounter Cintia Garcia [facility] UNK - Ambulatory Encounter Cintia Guzmanarado [facility] UNK - Ambulatory Encounter [facility] - [facility] Encounter Forrest Atri Forrest Atri Piper Mayers [facility] UNK - Ambulatory Encounter Forrest Atri Forrest Atri [facility] UNK - Ambulatory Encounter Forrest Atri Forrest Atri [facility] UNK - Ambulatory Encounter Forrest Atri Forrest Atri Link[employer] [facility] UNK - Ambulatory Encounter Forrest Atri Forrest Atri [facility] UNK - Ambulatory Encounter Forrest Atri Forrest Atri Sheryl Esparza [facility] UNK - Ambulatory Encounter Elmer Solorio [facility] UNK - Ambulatory Encounter Marj Tony [facility] UNK - Ambulatory Encounter [facility] Weight loss abnormalAbdominal pain, generalizedAllergic rhinitis - Ambulatory Encounter Forrest Atri Forrest Atri [facility] UNK - Ambulatory Encounter Forrest Atri Forrest Atri [facility] UNK - Ambulatory Encounter Forrest Atri Forrest Atri Link[employer] [facility] UNK - Ambulatory Encounter Forrest Atri Forrest Atri Link[facility] UNK - Ambulatory Encounter Marj Murraydez [facility] UNK - [facility] - [facility] - Ambulatory Encounter Forrest Atri Forrest Atri [facility] UNK - Ambulatory Encounter Forrest Atri Forrest Atri Sheryl Esparza [facility] Impulse control disorder, unspecified - Ambulatory Encounter Sebastien Sampson [facility] UNK - Ambulatory Encounter Madhumita [place] Madhumita [place] [facility] UNK - Ambulatory Encounter Forrest Atri Forrest Atri [facility] UNK - Ambulatory Encounter Forrest Atri Forrest Atri [facility] UNK - Ambulatory Encounter Forrest Atri Forrest Atri [facility] UNK - Ambulatory Encounter Forrest Atri Forrest Atri [facility] UNK - Ambulatory Encounter Forrest Atri Forrest Atri [employer] [facility] UNK - Ambulatory Encounter Forrest Atri Forrest Atri Link[employer] [facility] UNK - Ambulatory Encounter Forrest Atri Forrest Atri Link[employer] [facility] UNK - Ambulatory Encounter Marj Sampson [facility] UNK - Ambulatory Encounter Elmer Solorio [facility] UNK - Ambulatory Encounter Madhumita [place] Madhumita [place] Surekha Solorio [facility] UNK - Ambulatory Encounter Forrest Atri Forrest Atri [employer] [facility] UNK - Ambulatory Encounter Madhumita [place] Madhumita [place] [facility] UNK - Ambulatory Encounter Marj Jimenez [facility] UNK - Ambulatory Encounter Madhumita [place] Madhumita [place] Phoebe Zurita [facility] Abdominal pain, generalizedGastroenteritis - Ambulatory Encounter Ashanti Richardson [facility] UNK - Ambulatory Encounter [facility] - Ambulatory Encounter Marj Jimenez [facility] UNK - Ambulatory Encounter Forrest Atri Forrest Atri [facility] UNK - Ambulatory Encounter Forrest Atri Forrest Atri [facility] UNK - Ambulatory Encounter Forrest Atri Forrest Atri Sheryl Esparza [facility] UNK - Ambulatory Encounter Vance Solorio Forrest Atri Forrest Atri Bettina Cr [facility] Hyperglycemia - Ambulatory Encounter Rebecca Shields [facility] UNK - Ambulatory Encounter Marj Gabriel [facility] UNK - Ambulatory Encounter Forrest Atri Forrest Atri Zenon Montes [facility] Adjustment disorder with conduct disturbance - Ambulatory Encounter [facility] UNK - Ambulatory Encounter [facility] UNK - Ambulatory Encounter Leydi Christy [facility]K - Ambulatory Encounter Marj Jmienez [facility] UNK - Ambulatory Encounter Elmer Solorio [facility] UNK - Ambulatory En[facility] UNK - Ambulatory Encounter Elmer Solorio [facility] UNK - Ambulatory Encounter Elmer Solorio [facility] - Ambulatory Encounter Elmer Solorio [facility] - Ambulatory Encounter Elmer Solorio [facility] - Ambulatory Encounter Elmer Solorio [facility] - Ambulatory Encounter Rebecca Arnold [facility] Intellectual disability, moderateScreening for diabetes mellitusCongenital [...] MEDICATION USE Medication Instructions Dates Provider Comments NICOLE WATSON 14 DAY SENSOR use as instructed Amarilys Pinon SINGULAIR 10 MG ORAL TABLET 1 by mouth nightly at bedtime Amarilys Pinon ATORVASTATIN CALCIUM 10 MG ORAL TABLET 1 tab By Mouth take at bedtime [facility] Atri PROTONIX 40 MG ORAL TABLET DELAYED RELEASE 1 tab daily Forrest Atri PIOGLITAZONE HCL 15 MG ORAL TABLET 1 tab daily Forrest Atri FARXIGA 10 MG ORAL TABLET one tablet once daily Amarilys Pinon ABILIFY 2 MG TABS TAKE ONE (1) TABLET(S) BY MOUTH DAILY FOR ANGER, MOOD. - Forrest Atri ARIPIPRAZOLE 10MG TABLET TAKE ONE (1) TABLET(S) BY MOUTH ONCE A DAY FOR MOOD. Forrest Atri LITHIUM CARBONATE 450MG ER TAB TAKE TWO (2) TABLET(S) BY MOUTH AT BEDTIME FOR MOOD. [facility] Atri VALIUM 5 MG ORAL TABLET 1 tab By Mouth q5pm for anxiety Forrest Atri GUANFACINE HCL 1 MG ORAL TABLET 1 tab By Mouth q3pm and take at bedtime for mood, impulse control - Forrest Atri GLIPIZIDE 10 MG ORAL TABLET 1 tablet by mouth daily - Forrest Atri METFORMIN HCL 500 MG ORAL TABLET 1 by mouth once a day - Forrest Atri CHLORPROMAZINE HCL 50 MG ORAL TABLET 1/2 tab By Mouth Twice a Day for one week, then increase to 1 tab By Mouth Twice a Day for mood - Forrest Atri DEPAKOTE 500 MG ORAL TABLET DELAYED RELEASE 1 tab By Mouth Twice a Day for two weeks then stop - Forrest Atri FLONASE ALLERGY RELIEF 50 MCG/ACT NASAL SUSPENSION 2 sprays each nostril every day Elmer Solorio FLAGYL 500 MG ORAL TABLET 1 tab by mouth twice a day for 7 days - Brodiezana Atkinson PEPCID 20 MG ORAL TABLET 1 [...] Atri SOCIAL HISTORY Date Observation Value Provider home/family situation, assessment Loves with mother, pt is intellectually disabled Comes from [employer] family and had to move around [facility] " drug use, illicit Never Tonia Kemp " alcohol use Never Tonia Kemp " is there any chance that you could be ? No Tonia Kemp " assessment of health literacy ([facility] 2014 Standards, 3C10) Adequate Tonia Kemp " passive cigarette smoke exposure No Tonia Kemp " smoking status never smoker Tonia Kemp " Exercise Program Referral T Tonia Kemp " Weight Management Counseling Provided Janell Kemp " Nutrition intervention Janell Kemp drug use, illicit Never Forrest Atri " alcohol use Never Forrest Atri " smoking status never smoker Forrest Atri " social history E&M Single. Not homeless. Born in [facility]. City: [place]. State: [place]. Loves with mother, pt is intellectually disabled Not employed. Gender identity: Male. Forrest Atri " social history reviewed E&M reviewed today Forrest Atri drug use, illicit Never Forrest Atri " alcohol use Never Forrest Atri " smoking status never smoker Forrest Atri " social history E&M Single. Not homeless. Born in [facility]. City: [place]. State: [place]. Loves with mother, pt is intellectually disabled Not employed. Gender identity: Male. Forrest Atri " social history reviewed E&M reviewed today Forrest Atri drug use, illicit Never Forrest Atri " alcohol use Never Forrest Atri " smoking status never smoker Forrest Atri " social history E&M Single. Not homeless. Born in [facility]. City: [place]. State: [place]. Loves with mother, pt is intellectually disabled Not employed. Gender identity: Male. Forrest Atri " social history reviewed E&M reviewed today Forrest Atri drug use, illicit Never Forrest Atri " alcohol use Never Forrest Atri " smoking status never smoker Forrest Atri " social history E&M Single. Not homeless. Born in [facility]. City: [place]. State: [place]. Loves with mother, pt is intellectually disabled Not employed. Gender identity: Male. Forrest Atri " social history reviewed E&M reviewed today Forrest Atri drug use, illicit Never Forrest Atri " alcohol use Never Forrest Atri " smoking status never smoker Forrest Atri " social history E&M Single. Not homeless. Born in [place] City: [place]. State: [place]. Loves with mother, pt is intellectually disabled Not employed. Gender identity: Male. Forrest Atri " social history reviewed E&M reviewed today Forrest Atri drug use, illicit Never Forrest Atri " alcohol use Never Forrest Atri " smoking status never smoker Forrest Atri " social history E&M Single. Not homeless. Born in [facility]. City: [place]. State: [place]. Loves with mother, pt is intellectually disabled Not employed. Gender identity: Male. Forrest Atri " social history reviewed E&M reviewed today Forrest Atri social history E&M Single. Not homeless. Born in [facility]. City: [place]. State: [place]. Loves with mother, pt is intellectually disabled Not employed. Gender identity: Male. Forrest Atri " social history reviewed E&M reviewed today Forrest Atri social history E&M Single. Not homeless. Born in [facility]. City: [place]. [place]: [place]. Loves with mother, pt is intellectually disabled Not employed. Gender identity: Male. Forrest Atri " social history reviewed E&M reviewed today Forrest Atri drug use, illicit Never Forrest Atri " alcohol use Never Frorest Atri " smoking status never smoker Forrest Atri " social history E&M Single. Not homeless. Born in [facility]. City: [place]. State: [place]. Loves with mother, pt is intellectually disabled Not employed. Gender identity: Male. Forrest Atri " social history reviewed E&M reviewed today Forrest Atri drug use, illicit Never Forrest Atri " alcohol use Never Forrest Atri " smoking status never smoker Forrest Atri " social history E&M Single. Not homeless. Born in [facility]. City: [place]. State: [place]. Loves with mother, pt is intellectually disabled Not employed. Gender identity: Male. Forrest Atri " social history reviewed E&M reviewed today Forrest Atri drug use, illicit Never Forrest Atri " alcohol use Never Forrest Atri " smoking status never smoker Forrest Atri " social history E&M Single. Not homeless. Born in [facility]. City: [place]. [place]: [place]. Loves with mother, pt is intellectually disabled [...] history E&M Single. Not homeless. Born in [facility]. City: [place]. State: [place]. Loves with mother, pt is intellectually disabled Not employed. Gender identity: Male. Forrest Atri " social history reviewed E&M reviewed today Forrest Atri drug use, illicit Never Bettina Pool " alcohol use Never Bettina Pool " social history E&M Single. Not homeless. Born in [facility]. City: [place]. [place]: [place]. Loves with mother, pt is intellectually disabled Not employed. Gender identity: Male. Bettina Pool " social history reviewed E&M reviewed today Bettina Pool " assessment of health literacy ([facility] 2014 Standards, 3C10) Adequate Bettina Pool " passive cigarette smoke exposure No Bettina Pool " smoking status never smoker Bettina Pool time of call 01/27/2018 10:59 AM Anabelle Christy drug use, illicit Never Forrest Atri " alcohol use Never Forrest Atri " smoking status never smoker Forrest Atri " social history E&M Single. Not homeless. Born in [facility]. City: [place]. State: [place]. Sandy with mother, pt is intellectually disabled Not employed. Gender identity: Male. Forrest Atri " social history reviewed E&M reviewed today Forrest Atri passive cigarette smoke exposure No Marj Jimenez alcohol use Never Forrest Atri " smoking status never smoker Forrest Atri " social history E&M Single. Not homeless. Born in [facility]. City: [place]. State: [place]. Loves with mother, pt is intellectually disabled [...] history E&M Single. Not homeless. Born in [facility]. City: [place]. State: [place] Del[place] with mother, pt is intellectually disabled Not employed. Gender identity: Male. Rosa Elenaus Chanelra " social history reviewed E&M reviewed today Rosa Elena Rosenthal " assessment of health literacy ([facility] 2014 Standards, 3C10) Adequate Rosa Elena Rosenthal " passive cigarette smoke exposure No Rosa Elena Rosenthal " smoking status never smoker Rosa Elena Rosenthal passive cigarette smoke exposure No Marj Jimenez drug use, illicit Never Forrest Atri " alcohol use Never Forrest Atri " smoking status never smoker Forrest Atri " social history E&M Single. Not homeless. Born in [facility]. City: [place]. State: [facility] Judit with mother, pt is intellectually disabled Not [...] history E&M Single. Not homeless. Born in [facility]. City: [place]. State: [place] with mother, pt is intellectually disabled Not employed. Gender identity: Male. Phoebe Zurita " social history reviewed E&M reviewed today Phoebe Zurita " passive cigarette smoke exposure No Phoebe Parminder " smoking status never smoker Phoebe Parminder " assessment of health literacy ([facility] 2014 Standards, 3C10) Adequate Phoebe Zurita " Exercise Program Referral T Phoebe Zurita " Weight Management Counseling Provided T Phoebe Zurita " Nutrition intervention Janell Zurita drug use, illicit Never Forrest Atri " alcohol use Never Forrest Atri " smoking status never smoker Forrest Atri " social history E&M Single. Not homeless. Born in [facility]. City: [place]. State: [place]. Loves with mother, pt is intellectually disabled Not employed. Gender identity: Male. Forrest Barillas " social history reviewed E&M reviewed today Forrest Barillas drug use, illicit Never Marj Jimenez " alcohol use Never Marj Jimenez " smoking status never smoker Marj Jimenez Exercise Program Referral Janell Solorio " Weight Management Counseling Provided Janell Solorio " Nutrition intervention Janell Solorio " drug use, illicit Never Bettina Pool " alcohol use Never Bettina Pool " social history E&M Single. Not homeless. Born in [facility]. City: [place]. State: [place]. Loves with mother, pt is intellectually disabled Not employed. Gender identity: Male. Bettina Pool " social history reviewed E&M reviewed today Bettina Pool " passive cigarette smoke exposure No Bettina Pool " smoking status never smoker Bettina Pool " assessment of health literacy ([facility] 2014 Standards, 3C10) Adequate Bettina Pool social history E&M Single. Not homeless. Born in [facility]. City: [place]. State: [place]. Loves with mother, pt is intellectually disabled Not employed. Gender identity: Male. Forrest Barillas " social history reviewed E&M reviewed today Forrest Barillas time of call 10/16/2017 2:10 PM Leydi Christy Exercise Program Referral Janell Solorio " Weight Management Counseling Provided Janell Solorio " Nutrition intervention Janell Solorio " social history E&M Single. Not homeless. Born in [facility]. City: [place]. State: [place]. Loves with mother, pt is intellectually disabled Not employed. Gender identity: Male. Ashanti Richardson " home/family situation, assessment Loves with mother, pt is intellectually disabled Ashanti Richardson " patient considered to be homeless No Ashanti Richardson " drug use, illicit Never Ashanti Richardson " alcohol use Never Ashanti Richardson " social history reviewed E&M reviewed today Ashanti Richardson " passive cigarette smoke exposure Yes Ashanti Richardson " smoking status never smoker Ashanti Richardson " assessment of health literacy ([facility] 2014 Standards, 3C10) Low Ashanti Richardson FUNCTIONAL STATUS No Information Available MENTAL STATUS Date Observation Value Provider assessment of mood and affect E&M easily gets upset Amarilys Melendrezen " Generalized Anxiety Disorder Questionnaire - Question 2 2 Tonia Kemp " Generalized Anxiety Disorder Questionnaire - Question 1 1 Tonia Kemp mental status assessment, judgment poor Forrest Atri [...] candid, belligerent, negativistic, poor eye contact, uncooperative Forerst Atri " mental appearance (mental status exam) [...] below average Forrest Atri " hallucinations none Ofrrest Atri " thought content (mental status exam) [...] appropriate dress, looks like stated age, kannan Marj Jimenez mental status assessment, judgment good [...] of judgment and insight E&M intact Natali Santos" mental status examination: orientation E&M oriented to time, place, and person Natali Santos " assessment of mood and affect E&M no depression, anxiety, or agitation Natali Santos " Generalized Anxiety Disorder Questionnaire - Question 2 0 [facility] " Generalized Anxiety Disorder Questionnaire - Question 1 0 [facility] mental status assessment, judgment good Forrest Atri [...] looks like stated age, kannan Forrest Atri assessment of judgment and insight [...] dress, looks like stated age, kannan Jimenez Generalized Anxiety Disorder Questionnaire - Question [...] Disorder Questionnaire - Question 1 0 Bettina Pool mental status assessment, speech activity only when [...] name Policy type / Coverage type Covered libertarian ID [facility] Medicare [id number] [employer]cted [employer] Medicare [id number] [employer]/PPO MEDICARE MedicareB [id number] ADVANCE DIRECTIVES No Information Available TREATMENT PLAN Date Name Lipid Panel [facility] (Eskalith), Serum Comp. Metabolic Panel (14) CBC With Differential/Platelet TSH+T4+T3H [place] ([facility]), Serum [facility] ([facility]), Serum TSH [facility] ([facility]), Serum TSH [place] ([facility]skalith), Serum TSH+T4+T3H Comp. Metabolic Panel (14) Valproic Acid (Depakote),S Valproic Acid (Depakote),S Urine Culture, Routine Valproic Acid (Depakote),S Valproic Acid (Depakote),S Urinalysis with Micro on Positives TSH Hemoglobin A1c Lipid Panel Comp. Metabolic Panel (14) CBC With Differential/Platelet Ofc Vst, Est Level III Behavioral Health - Psychological Testing Est Patient Exp Problem - 95214 Est Patient Exp Problem - 61949 Est Patient Exp Problem - 90992 Est Patient Exp Problem - 24274 Est Patient Exp Problem - 94505 Est Patient Exp Problem - 79739 Est Patient Detailed - 66798 Est Patient Exp Problem - 32190 Est Patient Detailed - 15301 Est Patient Exp Problem - 96748 Est Patient Detailed - 79564 Est Patient Detailed - 50088 [facility] Brief Follow Up Psychotherapy 30 (16-37*) min - 80755 (with patient and/or family member) IB Brief Follow Up Psychotherapy 30 (16-37*) min - 36363 (with patient and/or family member) Est Patient Detailed - 71295 Glucose Stick Urinalysis - Dip only - In House Est Patient Exp Problem - 98355 Est Patient Detailed - 98206 [facility] Brief Follow Up Psychotherapy 30 (16-37*) min - 25284 (with patient and/or family member) Est Patient Exp Problem - 01650 Est Patient Exp Problem - 33574 [facility] Brief Follow Up Psychotherapy 30 (16-37*) min - 88639 (with patient and/or family member) Est Patient Detailed - 00025 [facility] Brief Follow Up Psychotherapy 30 (16-37*) min - 76199 (with patient and/or family member) Glucose Stick Est Patient Exp Problem - 99982 [employer] Level Five [facility] Brief Follow Up Psychotherapy 30 (16-37*) min - 85232 (with patient and/or family member) IB Brief Follow Up Psychotherapy 30 (16-37*) min - 61891 (with patient and/or family member) Est Patient Exp Problem - 46394 Est Patient Detailed - 51318 [facility] Brief Follow Up Psychotherapy 30 (16-37*) min - 37353 (with patient and/or family member) [facility] Assessment - 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 Diagnostic evaluation (no medical) - 85145 Glucose Stick Est Patient Exp Problem - 69188 Diagnostic evaluation with medical - 61600 [facility] Assessment (IBH) HEMOGLOBIN A1C - In House New Patient Detailed - 31233 Behavioral Health - Psychiatry Dental - Internal Behavioral Health - Therapy HISTORY OF PROCEDURES Procedure Date Procedure Name Provider Procedure Notes Status IB Brief Follow Up Marj Jimenez completed Psychotherapy 30 (16-37*) min - 78932 (with patient and/or family member) Marj Jimenez completed [facility] Brief Follow Up Marj Jimenez completed Psychotherapy 30 (16-37*) min - 03210 (with patient and/or family member) Marj Jimenez completed Glucose Stick Natali Santos completed Urinalysis - Dip only - In House Natali Santos completed [facility] Brief Follow Up Marj Jimenez completed Psychotherapy 30 (16-37*) min - 62787 (with patient and/or family member) Marj Jimenez completed [facility] Brief Follow Up Marj Jimenez completed Psychotherapy 30 (16-37*) min - 89627 (with patient and/or family member) Marj Jimenez completed [facility] Brief Follow Up Marj Jimenez completed Psychotherapy 30 (16-37*) min - 00794 (with patient and/or family member) Marj Jimenez completed Glucose Stick Claire Atkinson completed [facility] Brief Follow Up Marj Jimenez completed Psychotherapy 30 (16-37*) min - 68145 (with patient and/or family member) Marj Jimenez completed IB Brief Follow Up Marj Jimenez completed Psychotherapy 30 (16-37*) min - 52187 (with patient and/or family member) Marj Jimenez completed IB Brief Follow Up Marj Jimenez completed Psychotherapy 30 (16-37*) min - 15708 (with patient and/or family member) Marj Jimenez completed [facility] 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
--- OUTSIDE RECORDS SUMMARY | 2019-07-29 11:41 | XMS REPORT ---
Author Author Admin, [place] Organization Unknown Address Unknown Phone Unavailable PROBLEMS [...] Encounter Diagnosis - Ambulatory Encounter Amarilys Pinon [facility] UNK - Ambulatory Encounter Amarilys Kemp [facility] Gallbladder disease - Ambulatory Encounter Forrest Atri Forrest Atri Thida Jordan [facility] UNK - Ambulatory Encounter Cyndienoman King [facility] UNK - Ambulatory Encounter Kemar Pressleysridevi [facility] UNK - Ambulatory Encounter Forrest Atri Forrest Atri [facility] UNK - Ambulatory Encounter Forrest Atri Forrest Atri [facility] UNK - Ambulatory Encounter Forrest Atri Forrest Atri Sheryl Esparza [facility] UNK - Ambulatory Encounter Forrest Atri Forrest Atri [facility] UNK - Ambulatory Encounter Forrest Atri Forrest Atri Sabrina Jamie [facility] UNK - Ambulatory Encounter Forrest Atri Forrest At[facility] UNK - Ambulatory Encounter Forrest Atri Forrest Atri [facility] UNK - Ambulatory Encounter Forrest Atri Forrest Atri Sheryl Esparza [facility] UNK - Ambulatory Encounter Forrest Atri Forrest Atri [facility] UNK - Ambulatory Encounter Forrest Atri Forrest Atri Rosa Elena Esparza [facility] High risk medication management - Ambulatory Encounter Forrest Atri Forrest Atri [facility] UNK - Ambulatory Encounter Forrest Atri Forrest Atri Cookie Jo [facility] UNK - Ambulatory Encounter Forrest Atri Forrest Atri [facility] UNK - Ambulatory Encounter Forrest Atri Forrest Atri Sabrina Jamie [facility] UNK - Ambulatory Encounter Forrest Atri Forrest Atri [facility] UNK - Ambulatory Encounter Forrest Atri Forrest [facility]K - Ambulatory Encounter Sheryl Esparza [facility] UNK - Ambulatory Encounter Forrest Atri Forrest Atri Sharon Mathewia Esparza [facility] UNK - Ambulatory Encounter Forrest Atri Forrest Atri [facility] UNK - Ambulatory Encounter Forrest Atri Forrest Atri [facility] UNK - Ambulatory Encounter Forrest Atri Forrest Atri Alejandrina Cannon [facility] UNK - Ambulatory Encounter Forrest Atri Forrest Atri Isa Amos [facility] UNK - Ambulatory Encounter Forrest Atri Forrest Atri Randi Archuleta [facility] UNK - Ambulatory Encounter Moni Hannaran Forrest Atri Forrest Atri [facility] UNK - Ambulatory Encounter Forrest Atri Forrest Atri [facility] UNK - Ambulatory Encounter Forrest Atri Forrest Atri Zenon Montes [facility] UNK - Ambulatory Encounter Forrest Atri Forrest Atri [facility] UNK - Ambulatory Encounter [facility] - [facility] En[facility] Natali [facility] - Ambulatory Encounter Forrest Atri Forrest Atri Cintia ChristyFahadcolt [facility] UNK - Ambulatory Encounter Forrest Atri Forrest Atri [facility] UNK - Ambulatory Encounter Natali Santos [facility] UNK - Ambulatory Encounter Natali Santos [facility] UNK - Ambulatory Encounter Forrest Atri Forrest Atri Piper Mayers [facility] UNK - Ambulatory Encounter Forrest Atri Forrest Atri Zenon Montes [facility] UNK - Ambulatory Encounter Forrest Atri Forrest Atri [facility] UNK - Ambulatory Encounter Forrest Atri Forrest Atri Sheryl Esparza [facility] UNK - Ambulatory Encounter Forrest Atri Forrest Atri [facility] UNK - Ambulatory Encounter Forrest Atri Forrest [facility]ri [facility] UNK - Ambulatory Encounter Natali [place] [facility] Diabetes mellitus, type II - Ambulatory Encounter Forrest Atri Forrest Atri Marj Jimenez [facility] UNK - Ambulatory Encounter Marjtawanna Jimenez [facility] UNK - Ambulatory Encounter Marjsidney Jimenez [facility] UNK - Ambulatory Encounter Marj Aguilar [facility] UNK - Ambulatory Encounter Natali Santos [facility] UNK - Ambulatory Encounter LS[facility] Lab Support Desktop LinkRemy Santos [facility] UNK - Ambulatory Encounter Fax Status [facility] UNK - Ambulatory Encounter Fax Status [facility] UNK - Ambulatory Encounter Fax Status [facility] UNK - Ambulatory Encounter Perla Mccain [facility] UNK - Ambulatory Encounter Forrest Atri Forrest Atri Sheryl Esparza [facility] UNK - Ambulatory Encounter Natali Santos [facility] UNK - Ambulatory Encounter [facility] PolyuriaPolydipsia - Ambulatory Encounter Anabelle Santos [facility] UNK - Ambulatory Encounter Forrest Atri Forrest Atri Marj Jimenez [facility] UNK - Ambulatory Encounter Marj Jimenez [facility] UNK - Ambulatory Encounter Cintia Garcia [facility] UNK - Ambulatory Encounter Cintia Guzmanarado [facility] UNK - Ambulatory Encounter [facility] - Ambulatory Encounter Forrest Atri Forrest Atri Piper Mayers [facility] UNK - Ambulatory Encounter Forrest Atri Forrest Atri [facility] UNK - Ambulatory Encounter Forrest Atri Forrest Atri [facility] UNK - Ambulatory Encounter Forrest Atri Forrest Atri LinkLogic [facility] UNK - Ambulatory Encounter Forrest Atri Forrest Atri [facility] UNK - Ambulatory Encounter Forrest Atri Forrest Atri Sheryl Esparza [facility] UNK - Ambulatory Encounter Elmer Solorio [facility] UNK - Ambulatory Encounter Marj Tony [facility] UNK - [facility] loss abnormalAbdominal pain, generalizedAllergic rhinitis - Ambulatory Encounter Forrest Atri Forrest Atri [facility] UNK - Ambulatory Encounter Forrest Atri Forrest Atri [facility] UNK - Ambulatory Encounter Forrest Atri Forrest Atri LinkLogic [facility] UNK - Ambulatory Encounter Forrest Atri Forrest Atri LinkLogic [facility] UNK - Ambulatory Encounter Marj Murraydez [facility] UNK - [facility] - [facility]K - Ambulatory Encounter Forrest Atri Forrest Atri [facility] UNK - Ambulatory Encounter Forrest Atri Forrest Atri Sheryl Esparza [facility] Impulse control disorder, unspecified - Ambulatory Encounter Sebastien Sampson [facility] UNK - Ambulatory Encounter Madhumita [place] Madhumita [place] [facility] UNK - Ambulatory Encounter Forrest Atri Forrest Atri [facility] UNK - Ambulatory Encounter Forrest Atri Forrest Atri [facility] UNK - Ambulatory Encounter Forrest Atri Forrest Atri [facility] UNK - Ambulatory Encounter Forrest Atri Forrest Atri [facility] UNK - Ambulatory Encounter Forrest Atri Forrest Atri LinkLogic [facility] UNK - Ambulatory Encounter Forrest Atri Forrest Atri LinkLogic [facility] UNK - Ambulatory Encounter Forrest Atri Forrest Atri LinkLogic [facility] UNK - Ambulatory Encounter Marj Sampson [facility] UNK - Ambulatory Encounter Elmer Solorio [facility] UNK - Ambulatory Encounter Madhumita [place] Madhumita [place] Surekha Solorio [facility] UNK - Ambulatory Encounter Forrest Atri Forrest Atri LinkLogic [facility] UNK - Ambulatory Encounter Madhumita [place] Madhumita [place] [facility] UNK - Ambulatory Encounter Marj Jimenez [facility] UNK - Ambulatory Encounter Madhumita [place] Madhumita [place] Phoebe Zurita [facility] Abdominal pain, generalizedGastroenteritis - Ambulatory Encounter Ashanti Richardson [facility] UNK - Ambulatory Encounter [facility]mer [facility] - Ambulatory Encounter Marj Jimenez [facility] UNK - Ambulatory Encounter Forrest Atri Forrest Atri [facility] UNK - Ambulatory Encounter Forrest Atri Forrest Atri [facility] UNK - Ambulatory Encounter Forrest Atri Forrest Atri Sheryl Esparza [facility] UNK - Ambulatory Encounter Vance Solorio Forrest Atri Forrest Atri Bettina Cr [facility] Hyperglycemia - Ambulatory Encounter Rebecca Shields [facility] UNK - Ambulatory Encounter Marj Gabriel [facility] UNK - Ambulatory Encounter Forrest Atri Forrest Atri Zenon Montes [facility] Adjustment disorder with conduct disturbance - Ambulatory Encounter [facility] UNK - Ambulatory Encounter [facility] UNK - Ambulatory Encounter Leydi Christy [facility]K - Ambulatory Encounter Marj Jimenez [facility] UNK - Ambulatory Encounter Elmer Solorio [facility] UNK - Ambulatory Encounter Molly [facility] UNK - Ambulatory Encounter Elmer Solorio [facility] UNK - Ambulatory Encounter Elmer Solorio [facility] - Ambulatory Encounter Elmer Solorio [facility] - Ambulatory Encounter Elmer Solorio [facility] - Ambulatory Encounter Elmer Solorio [facility] - Ambulatory Encounter Rebecca Arnold [facility] Intellectual disability, moderateScreening for [...] 1 tab By Mouth take at bedtime [facility] Atri PROTONIX 40 MG ORAL TABLET DELAYED [...] TABLET(S) BY MOUTH AT BEDTIME FOR MOOD. 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 No Tonia Kemp " assessment of health literacy ([facility] 2014 Standards, 3C10) Adequate Tonia [...] history E&M Single. Not homeless. Born in [facility]. City: [place]. State: [place]. Loves with mother, pt is intellectually disabled Not employed. Gender identity: Male. Forrest Atri " social history reviewed E&M reviewed today Forrest Atri drug use, illicit Never Forrest Atri " alcohol use Never Forrest Atri " smoking status never smoker Forrest Atri " social history E&M Single. Not homeless. Born in [facility]. City: [place]. State: [place]. Loves with mother, pt is intellectually disabled Not employed. Gender identity: Male. Forrest Atri " social history reviewed E&M reviewed today Forrest Atri drug use, illicit Never Forrest Atri " alcohol use Never Forrest Atri " smoking status never smoker Forrest Atri " social history E&M Single. Not homeless. Born in [facility]. City: [place]. State: [place]. Loves with mother, pt is intellectually disabled Not employed. Gender identity: Male. Forrest Atri " social history reviewed E&M reviewed today Forrest Atri drug use, illicit Never Forrest Atri " alcohol use Never Forrest Atri " smoking status never smoker Forrest Atri " social history E&M Single. Not homeless. Born in [facility]. City: [place]. State: [place]. Loves with mother, pt is intellectually disabled Not employed. Gender identity: Male. Forrest Atri " social history reviewed E&M reviewed today Forrest Atri drug use, illicit Never Forrest Atri " alcohol use Never Forrest Atri " smoking status never smoker Forrest Atri " social history E&M Single. Not homeless. Born in [place]. City: [place]. State: [place]. Loves with mother, pt is intellectually disabled Not employed. Gender identity: Male. Forrest Atri " social history reviewed E&M reviewed today Forrest Atri drug use, illicit Never Forrest Atri " alcohol use Never Forrest Atri " smoking status never smoker Forrest Atri " social history E&M Single. Not homeless. Born in [facility]. City: [place]. State: [place]. Loves with mother, pt is intellectually disabled Not employed. Gender identity: Male. Forrest Atri " social history reviewed E&M reviewed today Forrest Atri social history E&M Single. Not homeless. Born in [facility]. City: [place]. State: [place]. Loves with mother, pt is intellectually disabled Not employed. Gender identity: Male. Forrest Atri " social history reviewed E&M reviewed today Forrest Atri social history E&M Single. Not homeless. Born in [facility]. City: [place]. State: [place]. Loves with mother, pt is intellectually disabled Not employed. Gender identity: Male. Forrest Atri " social history reviewed E&M reviewed today Forrest Atri drug use, illicit Never Forrest Atri " alcohol use Never Forrest Atri " smoking status never smoker Forrest Atri " social history E&M Single. Not homeless. Born in [facility]. City: [place]. State: [place]. Loves with mother, pt is intellectually disabled Not employed. Gender identity: Male. Forrest Atri " social history reviewed E&M reviewed today Forrest Atri drug use, illicit Never Forrest Atri " alcohol use Never Forrest Atri " smoking status never smoker Forrest Atri " social history E&M Single. Not homeless. Born in [facility]. City: [place]. State: [place]. Loves with mother, pt is intellectually disabled Not employed. Gender identity: Male. Forrest Atri " social history reviewed E&M reviewed today Forrest Atri drug use, illicit Never Forrest Atri " alcohol use Never Forrest Atri " smoking status never smoker Forrest Atri " social history E&M Single. Not homeless. Born in [facility]. City: [place]. State: [place]. Loves with mother, pt is intellectually disabled [...] history E&M Single. Not homeless. Born in [facility]. City: [place]. [place]: [place]. Loves with mother, pt is intellectually disabled Not employed. Gender identity: Male. Forrest Atri " social history reviewed E&M reviewed today Forrest Atri drug use, illicit Never Bettina Pool " alcohol use Never Bettina Pool " social history E&M Single. Not homeless. Born in [facility]. City: [place]. State: [place]. Loves with mother, pt is intellectually disabled Not employed. Gender identity: Male. Bettina Pool " social history reviewed E&M reviewed today Bettina Pool " assessment of health literacy ([facility] 2014 Standards, 3C10) Adequate Bettina Pool " passive cigarette smoke exposure No Bettina Pool " smoking status never smoker Bettina Pool time of call 01/27/2018 10:59 AM Anabelle Christy drug use, illicit Never Forrest Atri " alcohol use Never Forrest Atri " smoking status never smoker Forrest Atri " social history E&M Single. Not homeless. Born in [facility]. City: [place]. State: [place]. Sandy with mother, pt is intellectually disabled Not employed. Gender identity: Male. Forrest Atri " social history reviewed E&M reviewed today Forrest Atri passive cigarette smoke exposure No Marj Jimenez alcohol use Never Forrest Atri " smoking status never smoker Forrest Atri " social history E&M Single. Not homeless. Born in [facility]. City: [place]. State: [place]. Loves with mother, pt is intellectually disabled [...] history E&M Single. Not homeless. Born in [facility]. City: [place]. [place]: [place] with mother, pt is intellectually disabled Not employed. Gender identity: Male. Rosa Elenaus Chanelra " social history reviewed E&M reviewed today Rosa Elena Rosenthal " assessment of health literacy ([facility] 2014 Standards, 3C10) Adequate Rosa Elena Rosenthal " passive cigarette smoke exposure No Rosa Elena Rosenthal " smoking status never smoker Rosa Elena Rosenthal passive cigarette smoke exposure No Marj Jimenez drug use, illicit Never Forrest Atri " alcohol use Never Forrest Atri " smoking status never smoker Forrest Atri " social history E&M Single. Not homeless. Born in [facility]. City: [place]. State: [facility] Judit with mother, pt is intellectually disabled [...] history E&M Single. Not homeless. Born in [facility]. City: [place]. [place] with mother, pt is intellectually disabled Not employed. Gender identity: Male. Phoebe Zurita " social history reviewed E&M reviewed today Phoebe Zurita " passive cigarette smoke exposure No Phoebe Parminder " smoking status never smoker Phoebe Parminder " assessment of health literacy ([facility] 2014 Standards, 3C10) Adequate Phoebe Zurita " Exercise Program Referral T Phoebe Zurita " Weight Management Counseling Provided T Phoebe Zurita " Nutrition intervention Janell Zurita drug use, illicit Never Forrest Atri " alcohol use Never Forrest Atri " smoking status never smoker Forrest Atri " social history E&M Single. Not homeless. Born in [facility]. City: [place]. State: [place]. Loves with mother, pt is [...] history E&M Single. Not homeless. Born in [facility]. City: [place]. State: [place]. Loves with mother, pt is intellectually disabled Not employed. Gender identity: Male. Bettina Pool " social history reviewed E&M reviewed today Bettina Pool " passive cigarette smoke exposure No Bettina Pool " smoking status never smoker Bettina Pool " assessment of health literacy ([facility] 2014 Standards, 3C10) Adequate Bettina Pool social history E&M Single. Not homeless. Born in [facility]. City: [place]. State: [place]. Loves with mother, pt is intellectually disabled Not employed. Gender identity: Male. Forrest Barillas " social history reviewed E&M reviewed today Forrest Barillas time of call 10/16/2017 2:10 PM Leydi Christy Exercise Program Referral Janell Solorio " Weight Management Counseling Provided Janell Solorio " Nutrition intervention Janell Solorio " social history E&M Single. Not homeless. Born in [facility]. City: [place]. State: [place]. Loves with mother, pt is intellectually disabled [...] Ashanti Richardson " assessment of health literacy ([facility] 2014 Standards, 3C10) Low Ashanti Richardson FUNCTIONAL STATUS No Information Available MENTAL STATUS Date Observation Value Provider Generalized Anxiety Disorder Questionnaire - Question 2 2 Tonia Kemp " Generalized Anxiety Disorder Questionnaire - Question 1 1 Tonia Manz mental status assessment, judgment poor Forrest Atri [...] Anxiety Disorder Questionnaire - Question 1 0 [facility] mental status assessment, judgment good Forrest Atri [...] motor activity normal gait, normal posture, fidgety Majr Jimenez " behavior (mental status exam) appropriate, candid, cooperative, polite, responsive Marj Jimenez " mental appearance (mental status exam) adequate hygiene, appropriate dress, looks like stated tank, kannan Marj Jimenez mental status assessment, judgment [...] status exam) appropriate, candid, cooperative, polite, responsive Amrj Jimenez " mental appearance (mental status exam) [...] appropriate dress, looks like stated kannan fu Generalized Anxiety Disorder Questionnaire - Question 2 [...] mental status assessment, motor activity fidgety Marj Tony " behavior (mental status exam) cooperative, polite Marj Jimenez " mental appearance (mental status exam) adequate hygiene, appropriate dress, neat, looks younger than age Marj Tony " delusion No Marj Jimenez " hallucinations none Marj Jimenez assessment of judgment and insight E&M intact Elmer Solorio " mental status examination: orientation E&M oriented to time, place, and person Elmer Solorio " assessment of mood and affect E&M no depression, anxiety, or agitation Elmer Solorio " Generalized Anxiety Disorder Questionnaire - Question 2 0 Bettina Cr " Generalized Anxiety Disorder Questionnaire - Question [...] alliance party ID [facility] Medicare [id number] [employer] Connected MMP Medicare [id number] [employer] PRE[employer]/PPO MEDICARE MedicareB [id number] ADVANCE DIRECTIVES No Information Available TREATMENT PLAN Date Name Lipid Panel [place] (Eskalith), Serum Comp. Metabolic Panel (14) CBC With Differential/Platelet TSH+T4+T3H [place] (Eskalith), Serum [place] (Eskalith), Serum TSH [place] (Eskalith), Serum TSH [place] (Eskalith), Serum TSH+T4+T3H Comp. Metabolic Panel (14) Valproic Acid (Depakote),S Valproic Acid (Depakote),S Urine Culture, Routine Valproic Acid (Depakote),S Valproic Acid (Depakote),S Urinalysis with Micro on Positives TSH Hemoglobin A1c Lipid Panel Comp. Metabolic Panel (14) CBC With Differential/Platelet Behavioral Health - Psychological Testing Est Patient Exp Problem - 15860 Est Patient Exp Problem - 93049 Est Patient Exp Problem - 11664 Est Patient Exp Problem - 48199 Est Patient Exp Problem - 88016 Est Patient Exp Problem - 81780 Est Patient Detailed - 18896 Est Patient Exp Problem - 91958 Est Patient Detailed - 39146 Est Patient Exp Problem - 71201 Est Patient Detailed - 28215 Est Patient Detailed - 69830 IB Brief Follow Up Psychotherapy 30 (16-37*) min - 26356 (with patient and/or family member) IB Brief Follow Up Psychotherapy 30 (16-37*) min - 16761 (with patient and/or family member) Est Patient Detailed - 68774 Glucose Stick Urinalysis - Dip only - In House Est Patient Exp Problem - 92302 Est Patient Detailed - 18895 [facility] Brief Follow Up Psychotherapy 30 (16-37*) min - 60209 (with patient and/or family member) Est Patient Exp Problem - 86797 Est Patient Exp Problem - 12818 [facility] Brief Follow Up Psychotherapy 30 (16-37*) min - 04665 (with patient and/or family member) Est Patient Detailed - 22584 [facility] Brief Follow Up Psychotherapy 30 (16-37*) min - 55907 (with patient and/or family member) Glucose Stick Est Patient Exp Problem - 85048 Form Tamper [facility] Brief Follow Up Psychotherapy 30 (16-37*) min - 24561 (with patient and/or family member) IB Brief Follow Up Psychotherapy 30 (16-37*) min - 28769 (with patient and/or family member) Est Patient Exp Problem - 99457 Est Patient Detailed - 16623 [facility] Brief Follow Up Psychotherapy 30 (16-37*) min - 94789 (with patient and/or family member) [facility] Assessment - Boring Inspector Diagnostic evaluation (no medical) - 52663 Glucose Stick Est Patient Exp Problem - 47666 Diagnostic evaluation with medical - 21910 [facility] Assessment (IBH) HEMOGLOBIN A1C - In House New Patient Detailed - 43282 Behavioral Health - Psychiatry Dental - Internal Behavioral Health - Therapy HISTORY OF PROCEDURES Procedure Date Procedure Name Provider Procedure Notes Status IB Brief Follow Up Marj Jimenez completed Psychotherapy 30 (16-37*) min - 75154 (with patient and/or family member) Marj Jimenez completed IB Brief Follow Up Marj Jimenez completed Psychotherapy 30 (16-37*) min - 42361 (with patient and/or family member) Marj Jimenez completed Glucose Stick Natali Santos completed Urinalysis - Dip only - In House Natali Santos completed [facility] Brief Follow Up Marj Jimenez completed Psychotherapy 30 (16-37*) min - [id number] (with patient and/or family member) Marj Jimenez completed IB Brief Follow Up Marj Jimenez completed Psychotherapy 30 (16-37*) min - 12475 (with patient and/or family member) Marj Jimenez completed IB Brief Follow Up Marj Jimenez completed Psychotherapy 30 (16-37*) min - 49254 (with patient and/or family member) Marj Jimenez completed Glucose Stick Madhumita China completed IB Brief Follow Up Marj Jimenez completed Psychotherapy 30 (16-37*) min - 94359 (with patient and/or family member) Marj Jimenez completed [facility] Brief Follow Up Marj Jimenez completed Psychotherapy 30 (16-37*) min - 38116 (with patient and/or family member) Marj Jimenez completed IB Brief Follow Up Marj Jimenez completed Psychotherapy 30 (16-37*) min - 12405 (with patient and/or family member) Marj Jimenez completed [facility] Assessment - Boring Inspector Marj Jimenez completed Diagnostic evaluation (no medical) - [id number] Marj Jimenez completed Glucose Stick Vance Barcenas completed Diagnostic evaluation with medical - [id number] Forrest Barillas completed HEMOGLOBIN A1C - In House Meenu Edwards completed GOALS No Information Available HEALTH CONCERNS No Information Available
--- OUTSIDE RECORDS SUMMARY | 2019-07-29 11:42 | XMS REPORT ---
Author Author Admin, [place] Organization Unknown Address Unknown Phone Unavailable PROBLEMS [...] Elmer Solorio Weight loss abnormal completed - lEmer Solorio Screening for other and unspecified cardiovascular conditions active Elmer Solorio Incontinence, urinary NOS active Elmer Solorio Screening for thyroid disorder active Elmer Solorio Congenital megacolon active Elmer Sloorio Screening for diabetes mellitus active Elmer Solorio Intellectual disability, moderate active Elmer Solorio ENCOUNTERS Date Type Provider Location Encounter Diagnosis - Ambulatory Encounter Amarilys Pinon [facility] UNK - Ambulatory Encounter Amarilsy Kemp [facility] Gallbladder disease - Ambulatory Encounter Forrest Atri Forrest Atri Thida Jordan [facility] UNK - Ambulatory Encounter Cyndienoman King [facility] UNK - Ambulatory Encounter Kemar Pressleysridevi [facility] UNK - Ambulatory Encounter Forrest Atri Forrest Atri [facility] UNK - Ambulatory Encounter Forrest Atri Forrest Atri [facility] UNK - Ambulatory Encounter Forrest Atri Forrest Atri Sheryl Esparza [facility] UNK - Ambulatory Encounter Forrest Atri Forrest Atri [facility] UNK - Ambulatory Encounter Forrest Atri Forrest Atri Sabrina Jamie [facility] UNK - Ambulatory Encounter Forrest Atri Forrest Atri [facility] UNK - Ambulatory Encounter Forrest Atri Forrest Atri [facility] UNK - Ambulatory Encounter Forrest Atri Forrest Atri Sheryl Esparza [facility] UNK - Ambulatory Encounter Forrest Atri Forrest Atri [facility] UNK - Ambulatory Encounter Forrest Atri Forrest Atri Rosa Elena Esparza [facility] High risk medication management - Ambulatory Encounter Forrest Atri Forrest Atri [facility] UNK - Ambulatory Encounter Forrest Atri Forrest Atri Cookie Jo [facility] UNK - Ambulatory Encounter Forrest Atri Forrest Atri [facility] UNK - Ambulatory Encounter Forrest Atri Forrest Atri Sabrina Jamie [facility] UNK - Ambulatory Encounter Forrest Atri Forrest Atri [facility] UNK - Ambulatory Encounter Forrest Atri Forrest Atri [facility] - Ambulatory Encounter Sheryl Esparza [facility] UNK - Ambulatory Encounter Forrest Atri Forrest Atri Sharon Mathewia Esparza [facility] UNK - Ambulatory Encounter Forrest Atri Forrest Atri [facility] UNK - Ambulatory Encounter Forrest Atri Forrest Atri [facility] UNK - Ambulatory Encounter Forrest Atri Forrest Atri Alejandrina Cannon [facility] UNK - Ambulatory Encounter Forrest Atri Forrest Atri Isa Amos [facility] UNK - Ambulatory Encounter Forrest Atri Forrest Atri Randi Archuleta [facility] UNK - Ambulatory Encounter Moni Hannaran Forrest Atri Forrest Atri [facility] UNK - Ambulatory Encounter Forrest Atri Forrest Atri [facility] UNK - Ambulatory Encounter Forrest Atri Forrest Atri Zenon Montes [facility] UNK - Ambulatory Encounter Forrest Atri Forrest Atri [facility] Care[facility] UNK - Ambulatory Encounter Natali Santos [facility] UNK - Ambulatory Encounter Natali Santos [facility] UNK - Ambulatory Encounter Forrest Atri Forrest Atri Cintia ChristyFahadcolt [facility] UNK - Ambulatory Encounter Forrest Atri Forrest Atri [facility] UNK - Ambulatory Encounter Natali Santos [facility] UNK - Ambulatory Encounter Natali Santos [facility] UNK - Ambulatory Encounter Forrest Atri Forrest Atri Piper Mayers [facility] UNK - Ambulatory Encounter Forrest Atri Forrest Atri Zenon Montes [facility] UNK - Ambulatory Encounter Forrest Atri Forrest Atri [facility] UNK - Ambulatory Encounter Forrest Atri Forrest Atri Sheryl Esparza [facility] UNK - Ambulatory Encounter Forrest Atri Forrest Atri [facility] UNK - Ambulatory Encounter Forrest Atri Forrest Atri [facility]K - Ambulatory Encounter Natali Santos [facility] Diabetes mellitus, type II - Ambulatory Encounter Forrest Atri Forrest Atri Marj Jimenez [facility] UNK - Ambulatory Encounter Marjtawanna Jimenez [facility] UNK - Ambulatory Encounter Marjsidney Jimenez [facility] UNK - Ambulatory Encounter Marj Aguilar [facility] UNK - Ambulatory Encounter Natali Satnos [facility] UNK - Ambulatory Encounter [facility] Support Desktop LinkRemy Santos [facility] UNK - Ambulatory Encounter Fax Status [facility] UNK - Ambulatory Encounter Fax Status [facility] UNK - Ambulatory Encounter Fax Status [facility] UNK - Ambulatory Encounter Perla Mccain [facility] UNK - Ambulatory Encounter Forrest Atri Forrest Atri Sheryl Esparza [facility] UNK - Ambulatory Encounter Natali Santos [facility] UNK - Ambulatory Encounter Natali Dunbar [facility] PolyuriaPolydipsia - Ambulatory Encounter Anabelle Santos [facility] UNK - Ambulatory Encounter Forrest Atri Forrest Atri Marj Jimenez [facility] UNK - Ambulatory Encounter Marj Jimenez [facility] UNK - Ambulatory Encounter Cintia Garcia [facility] UNK - Ambulatory Encounter Cintia Guzmanarado [facility] UNK - Ambulatory Encounter [facility] Encounter Forrest Atri Forrest Atri Piper Mayers [facility] UNK - Ambulatory Encounter Forrest Atri Forrest Atri [facility] UNK - Ambulatory Encounter Forrest Atri Forrest Atri [facility] UNK - Ambulatory Encounter Forrest Atri Forrest Atri LinkLogic [facility] UNK - Ambulatory Encounter Forrest Atri Forrest Atri [facility] UNK - Ambulatory Encounter Forrest Atri Forrest Atri Sheryl Esparza [facility] UNK - Ambulatory Encounter Elmer Solorio [facility] UNK - Ambulatory Encounter Marj Tony [facility] UNK - [facility] abnormalAbdominal pain, generalizedAllergic rhinitis - Ambulatory Encounter Forrest Atri Forrest Atri [facility] UNK - Ambulatory Encounter Forrest Atri Forrest Atri [facility] UNK - Ambulatory Encounter Forrest Atri Forrest Atri LinkLogic [facility] UNK - Ambulatory Encounter Forrest Atri Forrest Atri LinkLogic [facility] UNK - Ambulatory Encounter Marj Murraydez [facility] UNK - Ambulatory Encounter [facility] UNK - Ambulatory Encounter [facility] UNK - Ambulatory Encounter Forrest Atri Forrest Atri [facility] UNK - Ambulatory Encounter Forrest Atri Forrest Atri Sheryl Esparza [facility] Impulse control disorder, unspecified - Ambulatory Encounter Sebastien Sampson [facility] UNK - Ambulatory Encounter Madhumita [place] Madhumita [place] [facility] UNK - Ambulatory Encounter Forrest Atri Forrest Atri [facility] UNK - Ambulatory Encounter Forrest Atri Forrest Atri [facility] UNK - Ambulatory Encounter Forrest Atri Forrest Atri [facility] UNK - Ambulatory Encounter Forrest Atri Forrest Atri [facility] UNK - Ambulatory Encounter Forrest Atri Forrest Atri LinkLogic [facility] UNK - Ambulatory Encounter Forrest Atri Forrest Atri LinkLogic [facility] UNK - Ambulatory Encounter Forrest Atri Forrest Atri LinkLogic [facility] UNK - Ambulatory Encounter Marj Sampson [facility] UNK - Ambulatory Encounter Elmer Solorio [facility] UNK - Ambulatory Encounter Madhumita [place] Madhumita [place] Surekha Solorio [facility] UNK - Ambulatory Encounter Forrest Atri Forrest Atri LinkLogic [facility] UNK - Ambulatory Encounter Madhumita [place] Madhumita [place] [facility] UNK - Ambulatory Encounter Marj Jimenez [facility] UNK - Ambulatory Encounter Madhumita [place] Madhumita [place] Phoebe Zurita [facility] Abdominal pain, generalizedGastroenteritis - Ambulatory Encounter Ashanti Richardson [facility] UNK - Ambulatory Encounter [facility]mer [facility] - Ambulatory Encounter Marj Jimenez [facility] UNK - Ambulatory Encounter Forrest Atri Forrest Atri [facility] UNK - Ambulatory Encounter Forrest Atri Forrest Atri [facility] UNK - Ambulatory Encounter Forrest Atri Forrest Atri Sheryl Esparza [facility] UNK - Ambulatory Encounter Vance Solorio Forrest Atri Forrest Atri Bettina Cr [facility] Hyperglycemia - Ambulatory Encounter Rebecca Shields [facility] UNK - Ambulatory Encounter Marj Gabriel [facility] UNK - Ambulatory Encounter Forrest Atri Forrest Atri Zenon Montes [facility] Adjustment disorder with conduct disturbance - Ambulatory Encounter [facility] UNK - Ambulatory Encounter [facility] UNK - Ambulatory Encounter Leydi Christy [facility] UNK - Ambulatory Encounter Marj Jimenez [facility] UNK - Ambulatory Encounter Elmer Solorio [facility] UNK - Ambulatory [facility] - Ambulatory Encounter Elmer Solorio [facility] UNK - Ambulatory Encounter Elmer Solorio LinkLog[facility] - Ambulatory Encounter Elmer Solorio [facility] - Ambulatory Encounter Elmer Solorio [facility] - Ambulatory Encounter Elmer Solorio [facility] - Ambulatory Encounter Rebecca Arnold [facility] Intellectual disability, moderateScreening for diabetes mellitusCongenital megacolonScreening [...] 1 tab By Mouth take at bedtime [facility] Atri PROTONIX 40 MG ORAL TABLET [...] TABLET(S) BY MOUTH AT BEDTIME FOR MOOD. 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 No Tonia Kemp " assessment of health literacy ([employer] [facility] 2014 Standards, 3C10) Adequate Tonia Kemp " [...] homeless. Born in [facility]. City: [place]. State: [place]. Loves with mother, pt is intellectually disabled Not employed. Gender identity: Male. Forrest Atri " social history reviewed E&M reviewed today Forrest Atri drug use, illicit Never Forrest Atri " alcohol use Never Forrest Atri " smoking status never smoker Forrest Atri " social history E&M Single. Not homeless. Born in [facility]. City: [place]. State: [place]. Loves with mother, pt is intellectually disabled Not employed. Gender identity: Male. Forrest Atri " social history reviewed E&M reviewed today Forrest Atri drug use, illicit Never Forrest Atri " alcohol use Never Forrest Atri " smoking status never smoker Forrest Atri " social history E&M Single. Not homeless. Born in [facility]. City: [place]. State: [place]. Loves with mother, pt is intellectually disabled Not employed. Gender identity: Male. Forrest Atri " social history reviewed E&M reviewed today Forrest Atri drug use, illicit Never Forrest Atri " alcohol use Never Forrest Atri " smoking status never smoker Forrest Atri " social history E&M Single. Not homeless. Born in [facility]. City: [place]. State: [place]. Loves with mother, pt is intellectually disabled Not employed. Gender identity: Male. Forrest Atri " social history reviewed E&M reviewed today Forrest Atri drug use, illicit Never Forrest Atri " alcohol use Never Forrest Atri " smoking status never smoker Forrest Atri " social history E&M Single. Not homeless. Born in [place]. City: [place]. State: [place]. Loves with mother, pt is intellectually disabled Not employed. Gender identity: Male. Forrest Atri " social history reviewed E&M reviewed today Forrest Atri drug use, illicit Never Forrest Atri " alcohol use Never Forrest Atri " smoking status never smoker Forrest Atri " social history E&M Single. Not homeless. Born in [facility]. City: [place]. State: [place]. Loves with mother, pt is intellectually disabled Not employed. Gender identity: Male. Forrest Atri " social history reviewed E&M reviewed today Forrest Atri social history E&M Single. Not homeless. Born in [facility]. City: [place]. State: [place]. Loves with mother, pt is intellectually disabled Not employed. Gender identity: Male. Forrest Atri " social history reviewed E&M reviewed today Forrest Atri social history E&M Single. Not homeless. Born in [facility]. City: [place]. State: [place]. Loves with mother, pt is intellectually disabled Not employed. Gender identity: Male. Forrest Atri " social history reviewed E&M reviewed today Forrest Atri drug use, illicit Never Forrest Atri " alcohol use Never Forrest Atri " smoking status never smoker Forrest Atri " social history E&M Single. Not homeless. Born in [facility]. City: [place]. State: [place]. Loves with mother, pt is intellectually disabled Not employed. Gender identity: Male. Forrest Atri " social history reviewed E&M reviewed today Forrest Atri drug use, illicit Never Forrest Atri " alcohol use Never Forrest Atri " smoking status never smoker Forrest Atri " social history E&M Single. Not homeless. Born in [facility]. City: [place]. State: [place]. Loves with mother, pt is intellectually disabled Not employed. Gender identity: Male. Forrest Atri " social history reviewed E&M reviewed today Forrest Atri drug use, illicit Never Forrest Atri " alcohol use Never Forrest Atri " smoking status never smoker Forrest Atri " social history E&M Single. Not homeless. Born in [facility]. City: [place]. State: [place]. Loves with mother, pt is intellectually disabled [...] homeless. Born in [facility]. City: [place]. State: [place]. Loves with mother, pt is intellectually disabled Not employed. Gender identity: Male. Forrest Atri " social history reviewed E&M reviewed today Forrest Atri drug use, illicit Never Bettina Pool " alcohol use Never Bettina Pool " social history E&M Single. Not homeless. Born in [facility]. City: [place]. State: [place]. Loves with mother, pt is intellectually disabled Not employed. Gender identity: Male. Bettina Pool " social history reviewed E&M reviewed today Bettina Pool " assessment of health literacy ([facility] 2014 Standards, 3C10) Adequate Bettina Pool " passive cigarette smoke exposure No Bettina Pool " smoking status never smoker Bettina Pool time of call 01/27/2018 10:59 AM Anabelle Christy drug use, illicit Never Forrest Atri " alcohol use Never Forrest Atri " smoking status never smoker Forrest Atri " social history E&M Single. Not homeless. Born in [facility]. City: [place]. State: [place]. Sandy with mother, pt is intellectually disabled Not employed. Gender identity: Male. Forrest Atri " social history reviewed E&M reviewed today Forrest Atri passive cigarette smoke exposure No Marj Jimenez alcohol use Never Forrest Atri " smoking status never smoker Forrest Atri " social history E&M Single. Not homeless. Born in [facility]. City: [place]. State: [place]. Loves with mother, pt is intellectually disabled [...] homeless. Born in [facility]. City: [place]. [place]: [place] with mother, pt is intellectually disabled Not employed. Gender identity: Male. Rosa Elenaus Chanelra " social history reviewed E&M reviewed today Rosa Elena Rosenthal " assessment of health literacy ([facility] 2014 Standards, 3C10) Adequate Rosa Elena [...] homeless. Born in [facility]. City: [place]. State: [facility] Judit with mother, pt is intellectually disabled Not employed. Gender identity: Male. Forrest Atri " social history reviewed E&M reviewed today Forrset Atri Exercise Program Referral Janell Solorio " [...] homeless. Born in [facility]. City: [place]. [place]: [place] with mother, pt is intellectually disabled Not employed. Gender identity: Male. Phoebe Zurita " social history reviewed E&M reviewed today Phoebe Zurita " passive cigarette smoke exposure No Phoebe Parminder " smoking status never smoker Phoebe Parminder " assessment of health literacy ([facility] 2014 Standards, 3C10) Adequate Phoebe Zurita " Exercise Program Referral T Phoebe Zurita " Weight Management Counseling Provided T Phoebe Zurita " Nutrition intervention Janell Zurita drug use, illicit Never Forrest Atri " alcohol use Never Forrest Atri " smoking status never smoker Forrest Atri " social history E&M Single. Not homeless. Born in [facility]. City: [place]. State: [place]. Loves with mother, pt is [...] homeless. Born in [facility]. City: [place]. State: [place]. Loves with mother, pt is intellectually disabled Not employed. Gender identity: Male. Bettina Pool " social history reviewed E&M reviewed today Bettina Pool " passive cigarette smoke exposure No Bettina Pool " smoking status never smoker Bettina Pool " assessment of health literacy ([facility] 2014 Standards, 3C10) Adequate Bettina Pool social history E&M Single. Not homeless. Born in [facility]. City: [place]. State: [place]. Loves with mother, pt is intellectually disabled Not employed. Gender identity: Male. Forrest Barillas " social history reviewed E&M reviewed today Forrest Barillas time of call 10/16/2017 2:10 PM Leydi Christy Exercise Program Referral Janell Solorio " Weight Management Counseling Provided Janell Solorio " Nutrition intervention Janell Solorio " social history E&M Single. Not homeless. Born in [facility]. City: [place]. State: [place]. Loves with mother, pt is intellectually disabled [...] Richardson " assessment of health literacy ([facility] 2014 Standards, 3C10) Low Ashanti Richardson [...] status assessment, speech activity loud, rambling, rapid Forerst Atri " mental status assessment, motor activity [...] Anxiety Disorder Questionnaire - Question 2 0 [facility] " Generalized Anxiety Disorder Questionnaire - Question 1 0 [facility] mental status assessment, judgment good Forrest [...] below average Forrest Atri " hallucinations none Forrets Atri " thought content (mental status exam) [...] Covered libertarian ID [facility] Medicare [id number] [employer] Medicare [id number] [employer]/PPO MEDICARE MedicareB [id number] ADVANCE DIRECTIVES No Information Available TREATMENT PLAN Date Name Lipid Panel [facility] ([facility]sk[facility]), Serum Comp. Metabolic Panel (14) CBC With Differential/Platelet TSH+T4+T3H [facility] ([place]), Serum [facility] ([facility]), Serum TSH [facility] ([facility]), Serum TSH [facility] ([facility]sk[facility]), Serum TSH+T4+T3H Comp. Metabolic Panel (14) Valproic Acid (Depakote),S Valproic Acid (Depakote),S Urine Culture, Routine Valproic Acid (Depakote),S Valproic Acid (Depakote),S Urinalysis with Micro on Positives TSH Hemoglobin A1c Lipid Panel Comp. Metabolic Panel (14) CBC With Differential/Platelet Ofc Vst, Est Level III Behavioral Health - Psychological Testing Est Patient Exp Problem - 74542 Est Patient Exp Problem - 86461 Est Patient Exp Problem - 26150 Est Patient Exp Problem - 70523 Est Patient Exp Problem - 27530 Est Patient Exp Problem - 25339 Est Patient Detailed - 86216 Est Patient Exp Problem - 36979 Est Patient Detailed - 07019 Est Patient Exp Problem - 08339 Est Patient Detailed - 86820 Est Patient Detailed - 27659 [facility] Brief Follow Up Psychotherapy 30 (16-37*) min - 31030 (with patient and/or family member) IB Brief Follow Up Psychotherapy 30 (16-37*) min - 64798 (with patient and/or family member) Est Patient Detailed - 72193 Glucose Stick Urinalysis - Dip only - In House Est Patient Exp Problem - 06458 Est Patient Detailed - 79816 [facility] Brief Follow Up Psychotherapy 30 (16-37*) min - 24218 (with patient and/or family member) Est Patient Exp Problem - 83653 Est Patient Exp Problem - 69904 [facility] Brief Follow Up Psychotherapy 30 (16-37*) min - 65407 (with patient and/or family member) Est Patient Detailed - 96004 [facility] Brief Follow Up Psychotherapy 30 (16-37*) min - 08526 (with patient and/or family member) Glucose Stick Est Patient Exp Problem - 84827 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 [employer] [facility] Brief Follow Up Psychotherapy 30 (16-37*) min - 56195 (with patient and/or family member) IB Brief Follow Up Psychotherapy 30 (16-37*) min - 91411 (with patient and/or family member) Est Patient Exp Problem - 33539 Est Patient Detailed - 82610 [facility] Brief Follow Up Psychotherapy 30 (16-37*) min - 02795 (with patient and/or family member) [facility] Assessment - Manager Paid Diagnostic evaluation (no medical) - 64494 Glucose Stick Est Patient Exp Problem - 24361 Diagnostic evaluation with medical - 07131 Integrated Behavioral Health Assessment (IBH) HEMOGLOBIN A1C - In House New Patient Detailed - 80852 Behavioral Health - Psychiatry Dental - Internal Behavioral Health - Therapy HISTORY OF PROCEDURES Procedure Date Procedure Name Provider Procedure Notes Status IB Brief Follow Up Marj Jimenez completed Psychotherapy 30 (16-37*) min - 28105 (with patient and/or family member) Marj Jimenez completed [facility] Brief Follow Up Marj Jimenez completed Psychotherapy 30 (16-37*) min - 56049 (with patient and/or family member) Marj Jimenez completed Glucose Stick Natali Santos completed Urinalysis - Dip only - In House Natali Santos completed [facility] Brief Follow Up Marj Jimenez completed Psychotherapy 30 (16-37*) min - 55589 (with patient and/or family member) Marj Jimenez completed [facility] Brief Follow Up Marj Jimenez completed Psychotherapy 30 (16-37*) min - 95404 (with patient and/or family member) Marj Jimenez completed [facility] Brief Follow Up Marj Jimenez completed Psychotherapy 30 (16-37*) min - 19936 (with patient and/or family member) Marj Jimenez completed Glucose Stick Claire Atkinson completed [facility] Brief Follow Up Marj Jimenez completed Psychotherapy 30 (16-37*) min - 28896 (with patient and/or family member) Marj Jimenez completed IB Brief Follow Up Marj Jimenez completed Psychotherapy 30 (16-37*) min - 87144 (with patient and/or family member) Marj Jimenez completed IB Brief Follow Up Marj Jimenez completed Psychotherapy 30 (16-37*) min - 77977 (with patient and/or family member) Marj Jimenez completed [facility] Assessment - Manager Paid Marj Jimenez completed Diagnostic evaluation (no medical) - 97311 Marj Jimenez completed Glucose Stick Vance Barcenas completed Diagnostic evaluation with medical - [id number] Forrest Barillas completed HEMOGLOBIN A1C - In House Meenu Edwards completed GOALS No Information Available HEALTH CONCERNS No Information Available
--- OUTSIDE RECORDS SUMMARY | 2019-07-29 11:43 | XMS REPORT ---
Author Author Admin, Momence Organization Unknown Address Unknown Phone Unavailable PROBLEMS [...] Diagnosis - Ambulatory Encounter Amarilys Pinon [facility] UNK - Ambulatory Encounter Amarilys Kemp [facility] Gallbladder disease - Ambulatory Encounter Forrest Atri Forrest Atri Thida Jordan [facility] UNK - Ambulatory Encounter Cyndienoman King [facility] UNK - Ambulatory Encounter Kemar Pressleysridevi [facility] UNK - Ambulatory Encounter Forrest Atri Forrest Atri [facility] UNK - Ambulatory Encounter Forrest Atri Forrest Atri [facility] UNK - Ambulatory Encounter Forrest Atri Forrest Atri Sheryl Esparza [facility] UNK - Ambulatory Encounter Forrest Atri Forrest Atri [facility] UNK - Ambulatory Encounter Forrest Atri Forrest Atri Sabrina Jamie [facility] UNK - Ambulatory Encounter Forrest Atri Forrest Atri [facility] UNK - Ambulatory Encounter Forrest Atri Forrest Atri [facility] UNK - Ambulatory Encounter Forrest Atri Forrest Atri Sheryl Esparza [facility] UNK - Ambulatory Encounter Forrest Atri Forrest Atri [facility] UNK - Ambulatory Encounter Forrest Atri Forrest Atri Rosa Elena Esparza [facility] High risk medication management - Ambulatory Encounter Forrest Atri Forrest Atri [facility] UNK - Ambulatory Encounter Forrest Atri Forrest Atri Cookie Jo [facility] UNK - Ambulatory Encounter Forrest Atri Forrest Atri [facility] UNK - Ambulatory Encounter Forrest Atri Forrest Atri Sabrina Jamie [facility] UNK - Ambulatory Encounter Forrest Atri Forrest Atri [facility] UNK - Ambulatory Encounter Forrest Atri [facility] - Ambulatory Encounter Sheryl Esparza [facility] UNK - Ambulatory Encounter Forrest Atri Forrest Atri Sharon Mathewia Esparza [facility] UNK - Ambulatory Encounter Forrest Atri Forrest Atri [facility] UNK - Ambulatory Encounter Forrest Atri Forrest Atri [facility] UNK - Ambulatory Encounter Forrest Atri Forrest Atri Alejandrina Cannon [facility] UNK - Ambulatory Encounter Forrest Atri Forrest Atri Isa Amos [facility] UNK - Ambulatory Encounter Forrest Atri Forrest Atri Randi Archuleta [facility] UNK - Ambulatory Encounter Moni Hannaran Forrest Atri Forrest Atri [facility] UNK - Ambulatory Encounter Forrest Atri Forrest Atri [facility] UNK - Ambulatory Encounter Forrest Atri Forrest Atri Zenon Montes [facility] UNK - Ambulatory Encounter Forrest Atri [facility] UNK - Ambulatory Encounter Natali Santos [facility] UNK - Ambulatory Encounter Natali Santos [facility] UNK - Ambulatory Encounter Forrest Atri Forrest Atri Cintia ChristyFahadcolt [facility] UNK - Ambulatory Encounter Forrest Atri Forrest Atri [facility] UNK - Ambulatory Encounter Natali Santos [facility] UNK - Ambulatory Encounter Natali Santos [facility] - Ambulatory Encounter Forrest Atri Forrest Atri Piper Mayers [facility] UNK - Ambulatory Encounter Forrest Atri Forrest Atri Zenon Montes [facility] UNK - Ambulatory Encounter Forrest Atri Forrest Atri [facility] - Ambulatory Encounter Forrest Atri Forrest Atri Sheryl Esparza [facility] UNK - Ambulatory Encounter Forrest Atri Forrest Atri [facility] UNK - Ambulatory Encounter Forrest Atri Forrest Atri [facility] UNK - Ambulatory Encounter Natali Santos [facility] Diabetes mellitus, type II - Ambulatory Encounter Forrest Atri Forrest Atri Marj Jimenez [facility] UNK - Ambulatory Encounter Marjtawanna Jimenez [facility] UNK - Ambulatory Encounter Marjsidney Jimenez [facility] UNK - Ambulatory Encounter Marj Aguilar [facility] UNK - Ambulatory Encounter Natali Santos [facility] UNK - Ambulatory Encounter [facility] Support Desktop LinkRemy Santos [facility] UNK - Ambulatory Encounter Fax Status [facility] UNK - Ambulatory Encounter Fax Status [facility] UNK - Ambulatory Encounter Fax Status [facility] UNK - Ambulatory Encounter Perla Mccain [facility] UNK - Ambulatory Encounter Forrest Atri Forrest Atri Sheryl Esparza [facility] UNK - Ambulatory Encounter Natali Santos [facility] UNK - Ambulatory Encounter [facility] PolyuriaPolydipsia - Ambulatory Encounter Anabelle Santos [facility] UNK - Ambulatory Encounter Forrest Atri Forrest Atri Marj Jimenez [facility] UNK - Ambulatory Encounter Marj Jimenez [facility] UNK - Ambulatory Encounter Cintia Garcia [facility] UNK - Ambulatory Encounter Cintia Guzmanarado [facility] UNK - Ambulatory Encounter [facility] - Ambulatory Encounter Forrest Atri Forrest Atri Piper Mayers [facility] UNK - Ambulatory Encounter Forrest Atri Forrest Atri [facility] UNK - Ambulatory Encounter Forrest Atri Forrest Atri [facility] UNK - Ambulatory Encounter Forrest Atri Forrest Atri Link[employer] [facility] UNK - Ambulatory Encounter Forrest Atri Forrest Atri [facility] UNK - Ambulatory Encounter Forrest Atri Forrest Atri Sheryl Esparza [facility] UNK - Ambulatory Encounter Elmer Solorio [facility] UNK - Ambulatory Encounter Marj Tony [facility] UNK - Ambulatory [facility] loss abnormalAbdominal pain, generalizedAllergic rhinitis - Ambulatory Encounter Forrest Atri Forrest Atri [facility] UNK - Ambulatory Encounter Forrest Atri Forrest Atri [facility] UNK - Ambulatory Encounter Forrest Atri Forrest Atri Link[employer] [facility] UNK - Ambulatory Encounter Forrest Atri Forrest Atri Link[facility] UNK - Ambulatory Encounter Marj Murraydez [facility] UNK - [facility] - [facility]K - Ambulatory Encounter Forrest Atri Forrest Atri [facility] UNK - Ambulatory Encounter Forrest Atri Forrest Atri Sheryl Esparza [facility] Impulse control disorder, unspecified - Ambulatory Encounter Sebastien Sampson [facility] UNK - Ambulatory Encounter Madhumita [place] Madhumita [place] [facility] UNK - Ambulatory Encounter Forrest Atri Forrest Atri [facility] UNK - Ambulatory Encounter Forrest Atri Forrest Atri [facility] UNK - Ambulatory Encounter Forrest Atri Forrest Atri [facility] UNK - Ambulatory Encounter Forrest Atri Forrest Atri [facility] UNK - Ambulatory Encounter Forrest Atri Forrest Atri [employer] [facility] UNK - Ambulatory Encounter Forrest Atri Forrest Atri Link[employer] [facility] UNK - Ambulatory Encounter Forrest Atri Forrest Atri [employer] UNK - Ambulatory Encounter Marj Sampson [facility] UNK - Ambulatory Encounter Elmer Solorio [facility] UNK - Ambulatory Encounter Madhumita [place] Madhumita [place] Surekha Solorio [facility] UNK - Ambulatory Encounter Forrest Atri Forrest Atri [employer] UNK - Ambulatory Encounter Madhumita [place] Madhumita [place] [facility] UNK - Ambulatory Encounter Marj Jimenez [facility] UNK - Ambulatory Encounter Madhumita [place] Madhumita [place] Phoebe Zurita [facility] Abdominal pain, generalizedGastroenteritis - Ambulatory Encounter Ashanti Richardson [facility] UNK - Ambulatory Encounter Elmer Solorio [facility] UNK - Ambulatory Encounter Marj Jimenez [facility] UNK - Ambulatory Encounter Forrest Atri Forrest Atri [facility] UNK - Ambulatory Encounter Forrest Atri Forrest Atri [facility] UNK - Ambulatory Encounter Forrest Atri Forrest Atri Sheryl Esparza [facility] UNK - Ambulatory Encounter Vance Solorio Forrest Atri Forrest Atri Bettina Cr [facility] Hyperglycemia - Ambulatory Encounter Rebecca Shields [facility] UNK - Ambulatory Encounter Marj Gabriel [facility] UNK - Ambulatory Encounter Forrest Atri Forrest Atri Zenon Montes [facility] Adjustment disorder with conduct disturbance - Ambulatory Encounter [facility] UNK - Ambulatory Encounter [facility] UNK - Ambulatory Encounter Leydi Christy [facility]K - Ambulatory Encounter Marj Jimenez [facility] UNK - Ambulatory Encounter Elmer Solorio [facility] UNK - Ambulatory En[facility] UNK - Ambulatory Encounter Elmer Solorio [facility] UNK - Ambulatory Encounter Elmer Solorio [facility] - [facility] Encounter [facility] - [facility] Encounter [facility] - Ambulatory Encounter [facility] - Ambulatory Encounter Rebecca Arnold [facility] Intellectual disability, moderateScreening for diabetes mellitusCongenital megacolonScreening [...] 1 tab By Mouth take at bedtime [facility] Atri PROTONIX 40 MG ORAL TABLET DELAYED RELEASE 1 tab daily Forrest Atri PIOGLITAZONE HCL 15 MG ORAL TABLET 1 tab daily Forrest Atri FARXIGA 10 MG ORAL TABLET one tablet once daily Amarilys Pinon ABILIFY 2 MG TABS TAKE ONE (1) TABLET(S) BY MOUTH DAILY FOR ANGER, MOOD. - Ofrrest Atri ARIPIPRAZOLE 10MG TABLET TAKE ONE (1) TABLET(S) BY MOUTH ONCE A DAY FOR MOOD. Forrest Atri LITHIUM CARBONATE 450MG ER TAB TAKE TWO (2) TABLET(S) BY MOUTH AT BEDTIME FOR MOOD. 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 No Tonia Kemp " assessment of health literacy ([facility] 2014 Standards, 3C10) Adequate Tonia Kemp [...] history E&M Single. Not homeless. Born in [facility]. City: [place]. [place]: [place] Loves with mother, pt is intellectually disabled Not employed. Gender identity: Male. Forrest Atri " social history reviewed E&M reviewed today Forrest Atri drug use, illicit Never Forrest Atri " alcohol use Never Forrest Atri " smoking status never smoker Forrest Atri " social history E&M Single. Not homeless. Born in [facility]. City: [place]. State: [place] Loves with mother, pt is intellectually disabled Not employed. Gender identity: Male. Forrest Atri " social history reviewed E&M reviewed today Forrest Atri drug use, illicit Never Forrest Atri " alcohol use Never Forrest Atri " smoking status never smoker Forrest Atri " social history E&M Single. Not homeless. Born in [facility]. City: [place]. State: [place] Loves with mother, pt is intellectually disabled Not employed. Gender identity: Male. Forrest Atri " social history reviewed E&M reviewed today Forrest Atri drug use, illicit Never Forrest Atri " alcohol use Never Forrest Atri " smoking status never smoker Forrest Atri " social history E&M Single. Not homeless. Born in [facility]. City: [place]. State: [place] Loves with mother, pt is intellectually disabled Not employed. Gender identity: Male. Forrest Atri " social history reviewed E&M reviewed today Forrest Atri drug use, illicit Never Forrest Atri " alcohol use Never Forrest Atri " smoking status never smoker Forrest Atri " social history E&M Single. Not homeless. Born in [place]. City: [place]. State: [place] Loves with mother, pt is intellectually disabled Not employed. Gender identity: Male. Forrest Atri " social history reviewed E&M reviewed today Forrest Atri drug use, illicit Never Forrest Atri " alcohol use Never Forrest Atri " smoking status never smoker Forrest Atri " social history E&M Single. Not homeless. Born in [facility]. City: [place]. State: [place] Loves with mother, pt is intellectually disabled Not employed. Gender identity: Male. Forrest Atri " social history reviewed E&M reviewed today Forrest Atri social history E&M Single. Not homeless. Born in [facility]. City: [place]. State: [place] Loves with mother, pt is intellectually disabled Not employed. Gender identity: Male. Forrest Atri " social history reviewed E&M reviewed today Forrest Atri social history E&M Single. Not homeless. Born in [facility]. City: [place]. State: [place] Loves with mother, pt is intellectually disabled Not employed. Gender identity: Male. Forrest Atri " social history reviewed E&M reviewed today Forrest Atri drug use, illicit Never Forrest Atri " alcohol use Never Forrest Atri " smoking status never smoker Forrest Atri " social history E&M Single. Not homeless. Born in [facility]. City: [place]. [place]: [place] Loves with mother, pt is intellectually disabled Not employed. Gender identity: Male. Forrest Atri " social history reviewed E&M reviewed today Forrest Atri drug use, illicit Never Forrest Atri " alcohol use Never Forrest Atri " smoking status never smoker Forrest Atri " social history E&M Single. Not homeless. Born in [facility]. City: [place]. [place]: [place] Loves with mother, pt is intellectually disabled Not employed. Gender identity: Male. Forrest Atri " social history reviewed E&M reviewed today Forrest Atri drug use, illicit Never Forrest Atri " alcohol use Never Forrest Atri " smoking status never smoker Forrest Atri " social history E&M Single. Not homeless. Born in [facility]. City: [place]. [place]: [place] Loves with mother, pt is intellectually disabled [...] history E&M Single. Not homeless. Born in [facility]. City: [place]. State: [place] Loves with mother, pt is intellectually disabled Not employed. Gender identity: Male. Forrest Atri " social history reviewed E&M reviewed today Forrest Atri drug use, illicit Never Bettina Pool " alcohol use Never Bettina Pool " social history E&M Single. Not homeless. Born in [facility]. City: [place]. State: [place] Loves with mother, pt is intellectually disabled Not employed. Gender identity: Male. Bettina Pool " social history reviewed E&M reviewed today Bettina Pool " assessment of health literacy ([facility] 2014 Standards, 3C10) Adequate Bettina Pool " passive cigarette smoke exposure No Bettina Pool " smoking status never smoker Bettina Pool time of call 01/27/2018 10:59 AM Anabelle Christy drug use, illicit Never Forrest Atri " alcohol use Never Forrest Atri " smoking status never smoker Forrest Atri " social history E&M Single. Not homeless. Born in [facility]. City: [place]. State: [place]. [place] with mother, pt is intellectually disabled Not employed. Gender identity: Male. Forrest Atri " social history reviewed E&M reviewed today Forrest Atri passive cigarette smoke exposure No Marj Jimenez alcohol use Never Forrest Atri " smoking status never smoker Forrest Atri " social history E&M Single. Not homeless. Born in [facility]. City: [place]. State: [place] Loves with mother, pt is intellectually disabled [...] history E&M Single. Not homeless. Born in [facility]. City: [place]. [place]: [place] mother, pt is intellectually disabled Not employed. Gender identity: Male. Rosa Elenaus Chanelra " social history reviewed E&M reviewed today Rosa Elena Rosenthal " assessment of health literacy ([facility] 2014 Standards, 3C10) Adequate Rosa Elena Rosenthal " passive cigarette smoke exposure No Rosa Elena Rosenthal " smoking status never smoker Rosa Elena Rosenthal passive cigarette smoke exposure No Marj Jimenez drug use, illicit Never Forrest Atri " alcohol use Never Forrest Atri " smoking status never smoker Forrest Atri " social history E&M Single. Not homeless. Born in [facility]. City: [place]. State: [facility] Judit with mother, pt is intellectually [...] history E&M Single. Not homeless. Born in [facility]. City: [place]. [place]: [place] with mother, pt is intellectually disabled Not employed. Gender identity: Male. Phoebe Zurita " social history reviewed E&M reviewed today Phoebe Zurita " passive cigarette smoke exposure No Phoebe Parminder " smoking status never smoker Phoebe Parminder " assessment of health literacy ([facility] 2014 Standards, 3C10) Adequate Phoebe Zurita " Exercise Program Referral T Phoebe Zurita " Weight Management Counseling Provided T Phoebe Zurita " Nutrition intervention Janell Zurita drug use, illicit Never Forrest Atri " alcohol use Never Forrest Atri " smoking status never smoker Forrest Atri " social history E&M Single. Not homeless. Born in [facility]. City: [place]. State: [place]. Loves with mother, pt is [...] history E&M Single. Not homeless. Born in [facility]. City: [place]. [place]: [place] Loves with mother, pt is intellectually disabled Not employed. Gender identity: Male. Bettina Pool " social history reviewed E&M reviewed today Bettina Pool " passive cigarette smoke exposure No Bettina Pool " smoking status never smoker Bettina Pool " assessment of health literacy ([facility] 2014 Standards, 3C10) Adequate Bettina Pool social history E&M Single. Not homeless. Born in [facility]. City: [place]. State: [place] Loves with mother, pt is intellectually disabled Not employed. Gender identity: Male. Forrest Barillas " social history reviewed E&M reviewed today Forrest Barillas time of call 10/16/2017 2:10 PM Leydi Christy Exercise Program Referral Janell Solorio " Weight Management Counseling Provided Janell Solorio " Nutrition intervention Janell Solorio " social history E&M Single. Not homeless. Born in [facility]. City: [place]. State: [place]. Loves with mother, pt is intellectually disabled Not employed. Gender identity: Male. Ashanti Richardson " home/family situation, assessment Loves with mother, pt is intellectually disabled Ashanti Richarsdon " patient considered to be homeless No Ashanti Richardson " drug use, illicit Never Ashanti Richardson " alcohol use Never Ashanti Richardson " social history reviewed E&M reviewed today Ashanti Richardson " passive cigarette smoke exposure Yes Ashanti Richardson " smoking status never smoker Ashatni Richardson " assessment of health literacy ([facility] 2014 Standards, 3C10) Low Ashanti Richardson [...] " mood (mental status exam) frustrated Marj Jimneez " mental status assessment, speech activity only [...] Anxiety Disorder Questionnaire - Question 2 0 [facility] " Generalized Anxiety Disorder Questionnaire - Question 1 0 [facility] mental status assessment, judgment good Forrest Atri [...] " insight (mental status exam) good Marj Jimenze " Mental Status Exam: intelligence adequate fund [...] Covered libertarian ID [facility] Medicare [id number] [employer] Medicare [id number] [employer]/PPO MEDICARE MedicareB [id number] ADVANCE DIRECTIVES No Information Available TREATMENT PLAN Date Name Lipid Panel Blodgett (Eskalith), Serum Comp. Metabolic Panel (14) CBC With Differential/Platelet TSH+T4+T3H Blodgett (Eskalith), Serum Blodgett (Eskalith), Serum TSH Blodgett (Eskalith), Serum TSH Blodgett (Eskalith), Serum TSH+T4+T3H Comp. Metabolic Panel (14) Valproic Acid (Depakote),S Valproic Acid (Depakote),S Urine Culture, Routine Valproic Acid (Depakote),S Valproic Acid (Depakote),S Urinalysis with Micro on Positives TSH Hemoglobin A1c Lipid Panel Comp. Metabolic Panel (14) CBC With Differential/Platelet Ofc Vst, Est Level III Behavioral Health - Psychological Testing Est Patient Exp Problem - 49632 Est Patient Exp Problem - 93354 Est Patient Exp Problem - 84916 Est Patient Exp Problem - 62172 Est Patient Exp Problem - 66275 Est Patient Exp Problem - 12626 Est Patient Detailed - 26525 Est Patient Exp Problem - 33161 Est Patient Detailed - 09663 Est Patient Exp Problem - 09977 Est Patient Detailed - 94052 Est Patient Detailed - 89046 [facility] Brief Follow Up Psychotherapy 30 (16-37*) min - 53874 (with patient and/or family member) IB Brief Follow Up Psychotherapy 30 (16-37*) min - 12482 (with patient and/or family member) Est Patient Detailed - 37413 Glucose Stick Urinalysis - Dip only - In House Est Patient Exp Problem - 78015 Est Patient Detailed - 96727 [facility] Brief Follow Up Psychotherapy 30 (16-37*) min - 96601 (with patient and/or family member) Est Patient Exp Problem - 90657 Est Patient Exp Problem - 57484 [facility] Brief Follow Up Psychotherapy 30 (16-37*) min - 80243 (with patient and/or family member) Est Patient Detailed - 99354 [facility] Brief Follow Up Psychotherapy 30 (16-37*) min - 54323 (with patient and/or family member) Glucose Stick Est Patient Exp Problem - 14190 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 [facility] Brief Follow Up Psychotherapy 30 (16-37*) min - 57272 (with patient and/or family member) IB Brief Follow Up Psychotherapy 30 (16-37*) min - 73804 (with patient and/or family member) Est Patient Exp Problem - 70359 Est Patient Detailed - 85999 [facility] Brief Follow Up Psychotherapy 30 (16-37*) min - 77516 (with patient and/or family member) [facility] 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 (no medical) - 14166 Glucose Stick Est Patient Exp Problem - 23628 Diagnostic evaluation with medical - 33907 [facility]al [facility] Assessment (IBH) HEMOGLOBIN A1C - In House New Patient Detailed - 54837 Behavioral Health - Psychiatry Dental - Internal Behavioral Health - Therapy HISTORY OF PROCEDURES Procedure Date Procedure Name Provider Procedure Notes Status IB Brief Follow Up Marj Jimenez completed Psychotherapy 30 (16-37*) min - 82089 (with patient and/or family member) Marj Jimenez completed [facility] Brief Follow Up Marj Jimenez completed Psychotherapy 30 (16-37*) min - 13175 (with patient and/or family member) Marj Jimenez completed Glucose Stick Natali Santos completed Urinalysis - Dip only - In House Natali Santos completed [facility] Brief Follow Up Marj Jimenez completed Psychotherapy 30 (16-37*) min - 79889 (with patient and/or family member) Marj Jimenez completed [facility] Brief Follow Up Marj Jimenez completed Psychotherapy 30 (16-37*) min - [id number] (with patient and/or family member) Marj Jimenez completed [facility] Brief Follow Up Marj Jimenez completed Psychotherapy 30 (16-37*) min - [id number] (with patient and/or family member) Marj Jimenez completed Glucose Stick Claire Atkinson completed [facility] Brief Follow Up Marj Jimenez completed Psychotherapy 30 (16-37*) min - [id number] (with patient and/or family member) Marj Jimenez completed [facility] Brief Follow Up Marj Jimenez completed Psychotherapy 30 (16-37*) min - [id number] (with patient and/or family member) Marj Jimenez completed [facility] Brief Follow Up Marj Jimenez completed Psychotherapy 30 (16-37*) min - [id number] (with patient and/or family member) Marj Jimenez completed [facility] 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
== END | disposition home or self-care (01) ==
LOC: OR 05:12
PROVIDERS: ATTEND Surgery
DX: K80.10 Calculus of gallbladder with chronic cholecystitis without obstruction (principal); K82.8 Other specified diseases of gallbladder; F79 Unspecified intellectual disabilities; E11.9 Type 2 diabetes mellitus without complications; E78.00 Pure hypercholesterolemia, unspecified; Z01.810 Encounter for preprocedural cardiovascular examination; Z79.84 Long term (current) use of oral hypoglycemic drugs
CPT/HCPCS: 36415; 47562; 82948; 88304; 93005; C1766; J0690; J2175; J2250; J2405; J2765; J3010; J1100; J1885; J2001

== ENCOUNTER 2019-07-30 19:14 | Inpatient (IN) | payer MEDICARE, OTHER ==
[~2019-07-30] VITALS: Ht 170.2 cm; Wt 59.0 kg
[~2019-07-30 19:14] MED LIST changes: -BUPIVACAINE 0.25%/EPI 30ML SDV INJ ONE; -CEFAZOLIN SOD 1 GM VIAL ONE; -CEFAZOLIN SOD 1 GM/NS 50ML 50 ML IV ONE; -DEXAMETHASONE SOD PHOS INJ 4 MG/ML VIAL ONE; -FENTANYL CITRATE/PF 100MCG/2 ML INJ ONE; -KETOROLAC TROMETHAMINE 30 MG/ML VIAL ONE; -LIDOCAINE HCL 2% LOCAL INJ 5 ML SDV VIAL INJ ONE; -MEPERIDINE HCL INJ 25 MG/ML VIAL ONE; -METOCLOPRAMIDE HCL 10 MG/2ML VIAL ONE; -MIDAZOLAM HCL 2 MG/2 ML VIAL ONE; -ONDANSETRON HCL INJ 2MG/ML 2ML 2 MG/ML VIAL ONE; -PROPOFOL IV EMULSION 10 MG/ML 20 ML VIAL ONE; -ROCURONIUM BROMIDE 10 MG/ML 5ML VIAL ONE; -SEVOFLURANE INHAL SOLN 250 ML PEN BTL ONE
[2019-07-30] MEDS ORDERED: ONDANSETRON HCL INJ 2MG/ML 2ML 2 MG/ML VIAL IV STA (21:02)
[2019-07-30] MEDS ORDERED: MORPHINE SULFATE INJ 4 MG/ML INJ 1ML IV ONE (21:15)
[2019-07-30] MEDS ORDERED: DIATRIZOATE MEGL/DIATRIZOA SOD 30 ML BTL PO ONE (21:31)
[2019-07-30 21:45] LABS: BASOPHILS # (AUTO) 0.1 (0.0-0.1); BASOPHILS % 0.5 % (0.0-1.0); EOSINOPHILS # (AUTO) 0.2 (0.0-0.4); EOSINOPHILS % 1.8 % (0.0-6.0); HEMATOCRIT 41.7 % (38.2-49.6); HEMOGLOBIN 14.1 g/dL (14.0-18.0); LYMPHOCYTES % 17.4 % (18.0-39.1); MEAN CORPUSCULAR HEMOGLOBIN 28.6 pg (28-32); MEAN CORPUSCULAR HGB CONC 33.8 g/dL (31-35); MEAN CORPUSCULAR VOLUME 84.6 fL (81-99); MONOCYTES # (AUTO) 0.6 (0.2-0.8); MONOCYTES % 4.8 % (4.4-11.3); NEUTROPHILS # (AUTO) 8.8 (2.1-6.9); PLATELET COUNT 288 x10e3/uL (140-360); RED BLOOD COUNT 4.93 x10e6/uL (4.3-5.7); RED CELL DISTRIBUTION WIDTH 11.8 % (11.7-14.4)
[2019-07-30 22:03] LABS: ALANINE AMINOTRANSFERASE 31 IU/L (0-55); ALBUMIN 3.7 g/dL (3.5-5.0); ALBUMIN/GLOBULIN RATIO 1.2 (0.8-2.0); ALKALINE PHOSPHATASE 61 IU/L (40-150); ANION GAP 15.8 mmol/L (8-16); BLOOD UREA NITROGEN 9 mg/dL (7-26); BUN/CREATININE RATIO 12 (6-25); CALCIUM 10.2 mg/dL (8.4-10.2); CARBON DIOXIDE 23 mmol/L (22-29); CHLORIDE 103 mmol/L (98-107); CREATININE, SERUM 0.73 mg/dL (0.72-1.25); EST GLOMERULAR FILTRATION RATE > 60 ML/MIN (60-); GLUCOSE 219 mg/dL (74-118); POTASSIUM 3.8 mmol/L (3.5-5.1); SODIUM 138 mmol/L (136-145)
[2019-07-30] MEDS: SODIUM CHLORIDE 0.9% 1000ML 1,000 ML IV SCH (22:57)
--- NOTE | 2019-07-31 00:23 | Diagnostic Imaging Report ---
EXAM: CT Abdomen and Pelvis WITH contrast INDICATION: ^post op pain ^[id number] ^2300 COMPARISON: CT dated 07/19/2019 TECHNIQUE: Abdomen and pelvis were scanned utilizing a multidetector helical scanner from the lung base to the pubic symphysis after administration of IV contrast. Coronal and sagittal reformations were obtained. Dose modulation, iterative reconstruction, and/or weight based adjustment of the mA/kV was utilized to reduce the radiation dose to as low as reasonably achievable. Routine protocol was performed. Scan was performed when during portal venous phase. IV CONTRAST: 100 mL of Isovue-370 ORAL CONTRAST: Gastroview COMPLICATIONS: None RADIATION DOSE: Total DLP: 226.92 mGy*cm Estimated effective dose: (DLP x 0.015 x size factor) mSv CTDIvol has been reviewed. It is below the limits set by the Radiation Protocol Committee (RPC). FINDINGS: LINES and TUBES: None. LOWER THORAX: Mild dependent atelectasis. HEPATOBILIARY: No focal hepatic lesions. No biliary ductal dilation. GALLBLADDER: Surgically absent. Marked fat stranding stranding in the gallbladder fossa as well as a 3.3 x 2 cm peripherally enhancing collection. Common bile duct mucosal hyperenhancement. SPLEEN: Splenomegaly. PANCREAS: No focal masses or ductal dilatation. ADRENALS: No adrenal nodules KIDNEYS/URETERS: Kidneys enhance symmetrically. No hydronephrosis. No cystic or solid mass lesions. No stones. GI TRACT: No abnormal distention or evidence of bowel obstruction. Colonic wall thickening at the hepatic flexure, inseparable in areas from above-mentioned collection (series 2, image 26 and 29). Appendix is normal. PELVIC ORGANS/BLADDER: Nondependent gas bubble within bladder, likely related to instrumentation. LYMPH NODES: No lymphadenopathy. VESSELS: Unremarkable. PERITONEUM / RETROPERITONEUM: No free air or fluid. Right upper quadrant reactive peritoneal thickening. BONES: Unremarkable. SOFT TISSUES: Unremarkable. IMPRESSION: 1. Significant inflammation in the cholecystectomy bed as well as a 3.3 cm collection, suspicious for abscess formation. There is significant thickening of the adjacent colon at hepatic flexure with suspected fistulous connection or developing fistula between colon and this collection. Attention on follow-up examination. Signed by: Dr. Regis Ramirez MD on 07/31/2019 12:19 AM
[2019-07-31] MEDS ORDERED: PIPER-TAZ 3.375 GM 50 ML IV STA (00:26)
[2019-07-31] MEDS ORDERED: METRONIDAZOLE 500MG/NS 100ML 100 ML IV SCH ×2 (00:51→10:00)
[2019-07-31] MEDS ORDERED: IOPAMIDOL 370 MG/ML 200 ML INFUS..BTL INJ ONE (05:33)
[2019-07-31] MEDS ORDERED: SODIUM CHLORIDE 0.9% 50ML 50 ML ONE (05:34)
[2019-07-31] MEDS ORDERED: MORPHINE SULFATE INJ 4 MG/ML INJ 1ML ONE (05:51)
[2019-07-31] MEDS ORDERED: PIPER-TAZ 3.375 GM 50 ML IV SCH ×2 (06:00→11:00)
[2019-07-31] MEDS ORDERED: MORPHINE SULFATE 2 MG/ML SYR 1ML IV STA (06:12)
--- NOTE | 2019-07-31 07:15 | NUR ---
RECEIVED BEDSIDE REPORT
--- NOTE | 2019-07-31 08:00 | NUR ---
PATIENT WEARING TINA, DIABETIC MONITOR ON RIGHT ARM. MOM PREFORMED CHECK. GLUCOSE 114. PATIENT IS NPO
[2019-07-31] MEDS: SODIUM CHLORIDE 0.9% 1000ML 1,000 ML IV SCH ×2 (09:30→16:54)
--- NOTE | 2019-07-31 12:51 | NUR ---
SPOKE WITH NABIL PARADA, HE WILL BE IN TO EVALUATE PATIENT. HE WILL TAKE CARE OF NPO STATUS, MAINTENACE FLUIDS, RESUMING MEDS, ACCUCHECK AND UPDATE FAMILY ON PLAN OF CARE
--- NOTE | 2019-07-31 14:00 | NUR ---
PT RECEIVED FROM ER. EDUCATED PT ABOUT FALL PRECAUTIONS. CALL LIGHT WITH IN EASY REACH. INSTRUCTED PT TO USE CALL LIGHT FOR ALL THE NEEDS. SIDE RAILS X2. BED IS LOW AND LOCKED. BED ALARM IS ON. PT MOTHER AT BEDSIDE. DENIES NEEDS AT THIS TIME.
--- NOTE | 2019-07-31 14:10 | NUR ---
DR. Jose PARADA AT BEDSIDE. NEW ORDERS RECEIVED.
[2019-07-31] MEDS ORDERED: HYDROCODONE/APAP 7.5MG-325MG 1 EA TAB PO PRN (14:15)
[2019-07-31] MEDS ORDERED: ONDANSETRON HCL INJ 2MG/ML 2ML 2 MG/ML VIAL IV PRN (14:15)
[2019-07-31] MEDS: PANTOPRAZOLE 40 MG 10ML VIAL IV SCH (14:53)
[2019-07-31 15:00] VITALS: BP 107/76
[2019-07-31 16:00] VITALS: BP 107/76
--- NOTE | 2019-07-31 16:00 | NUR ---
PT C/O NAUSEA AND VOMITING. PAGED DR. Jose PARADA AND INFORMED THE SAME. PT BACK TO NPO PER THE
[2019-07-31] MEDS: HYDROMORPHONE 1MG/1ML INJ IV PRN ×2 (16:05→22:00)
[2019-07-31] MEDS: MONTELUKAST SODIUM 10 MG TAB PO SCH (16:53)
[2019-07-31] MEDS: METRONIDAZOLE 500MG/NS 100ML 100 ML IV SCH (17:03)
[2019-07-31] MEDS: INSULIN REGULAR, HUMAN 100 UNIT/1 ML 3ML VIAL SQ SCH ×2 (18:30→23:43)
--- NOTE | 2019-07-31 19:00 | NUR ---
BEDSIDE SHIFT REPORT GIVEN TO THE PASTORAL WORKER RN. PT DENIED FURTHER NEEDS
[2019-07-31] MEDS: PIPER-TAZ 3.375 GM 50 ML IV SCH (20:00)
--- NOTE | 2019-07-31 20:10 | NUR ---
RECEIVED PT IN BED AOX3 RESPIRATIONS ARE EVEN AND UNLABORED . DENIES PAIN CALL LIGHT WITH IN REACH CONTINUE TO MONITOR
[2019-07-31 20:37] VITALS: BP 117/94
[2019-07-31 23:10] VITALS: BP 117/94
[2019-08-01] VITALS (8 sets, daily range): BP systolic 96–111; BP diastolic 64–73
[2019-08-01] MEDS: METRONIDAZOLE 500MG/NS 100ML 100 ML IV SCH ×3 (02:00→17:13)
[2019-08-01] MEDS: SODIUM CHLORIDE 0.9% 1000ML 1,000 ML IV SCH ×2 (03:15→09:33)
[2019-08-01] MEDS: PIPER-TAZ 3.375 GM 50 ML IV SCH ×3 (04:00→20:00)
[2019-08-01 05:21] LABS: BASOPHILS % 0.5 % (0.0-1.0); EOSINOPHILS # (AUTO) 0.4 (0.0-0.4); EOSINOPHILS % 4.8 % (0.0-6.0); HEMATOCRIT 39.1 % (38.2-49.6); HEMOGLOBIN 13.1 g/dL (14.0-18.0); LYMPHOCYTES # (AUTO) 1.6 (1.0-3.2); LYMPHOCYTES % 18.5 % (18.0-39.1); MEAN CORPUSCULAR HEMOGLOBIN 28.9 pg (28-32); MEAN CORPUSCULAR HGB CONC 33.5 g/dL (31-35); MEAN CORPUSCULAR VOLUME 86.3 fL (81-99); MONOCYTES # (AUTO) 0.6 (0.2-0.8); MONOCYTES % 6.4 % (4.4-11.3); NEUTROPHILS % 69.1 % (38.7-80.0); PLATELET COUNT 236 x10e3/uL (140-360); RED BLOOD COUNT 4.53 x10e6/uL (4.3-5.7); RED CELL DISTRIBUTION WIDTH 11.8 % (11.7-14.4)
[2019-08-01 05:40] LABS: ANION GAP 13.8 mmol/L (8-16); BLOOD UREA NITROGEN 7 mg/dL (7-26); BUN/CREATININE RATIO 12 (6-25); CALCIUM 9.4 mg/dL (8.4-10.2); CARBON DIOXIDE 25 mmol/L (22-29); CHLORIDE 102 mmol/L (98-107); CREATININE, SERUM 0.57 mg/dL (0.72-1.25); EST GLOMERULAR FILTRATION RATE > 60 ML/MIN (60-); GLUCOSE 115 mg/dL (74-118); POTASSIUM 3.8 mmol/L (3.5-5.1); SODIUM 137 mmol/L (136-145)
[2019-08-01] MEDS: INSULIN REGULAR, HUMAN 100 UNIT/1 ML 3ML VIAL SQ SCH ×3 (05:44→18:00)
--- NOTE | 2019-08-01 05:55 | NUR ---
PT C/O PAIN X1 AND GIVEN ORDERED PAIN MEDICATION .FAMILY AT THE BEDSIDE .CALL LIGHT WITH IN REACH .CONTINUE TO MONITOR
--- NOTE | 2019-08-01 06:37 | NUR ---
BEDSIDE REPORT GIVEN TO THE ONCOMING NURSE.
--- NOTE | 2019-08-01 07:00 | NUR ---
BEDSIDE SHIFT REPORT RECEIVED FROM THE SUPERVISOR GLUING RN. EDUCATED PT ABOUT FALL PRECAUTIONS. CALL LIGHT WITH IN EASY REACH. INSTRUCTED PT TO USE CALL LIGHT FOR ALL THE NEEDS. PT VERBALIZED UNDERSTANDING. BED IS LOW AND LOCKED. SIDE RAILS X2. MOTHER AT BEDSIDE. PT DENIES NEEDS AT THIS TIME.
--- NOTE | 2019-08-01 09:15 | NUR ---
PAGED DR. PARADA REGARDING PT DIET AND MORNING MEDS. WAITING FOR THE CALL BACK.
--- NOTE | 2019-08-01 11:30 | NUR ---
PAGED DR. Jose PARADA REGARDING ADVANCING THE DIET AND MORNING MEDS.
--- NOTE | 2019-08-01 11:50 | NUR ---
DAVID TO GIVE MEDS PER DR. Jose PARADA.
[2019-08-01] MEDS: ARIPIPRAZOLE 5 MG TABLET PO SCH (12:07)
[2019-08-01] MEDS: DIAZEPAM 5 MG TAB PO SCH (12:08)
[2019-08-01] MEDS: PANTOPRAZOLE 40 MG 10ML VIAL IV SCH (15:01)
[2019-08-01] MEDS: MONTELUKAST SODIUM 10 MG TAB PO SCH (17:13)
--- NOTE | 2019-08-01 18:15 | NUR ---
DR. Jose PARADA AT BEDSIDE.
--- NOTE | 2019-08-01 19:00 | NUR ---
BEDSIDE SHIFT REPORT GIVEN TO THE MASH TUB COOKER OPERATOR RN. PT DENIED FURTHER NEEDS. MOTHER AT BEDSIDE.
--- NOTE | 2019-08-01 20:04 | NUR ---
RECEIVED PT IN BED AOX3 ,.DENIES PAIN .PT IS ON FULL LIQUID DIET .FAMILY AT TE BEDSIDE .CALL LIGHT WITH IN REACH .CONTINUE TO MONITOR
[2019-08-02] VITALS: BP 106/71
[2019-08-02] MEDS: SODIUM CHLORIDE 0.9% 1000ML 1,000 ML IV SCH (00:47)
[2019-08-02 01:36] VITALS: BP 104/64
[2019-08-02] MEDS: METRONIDAZOLE 500MG/NS 100ML 100 ML IV SCH ×2 (02:00→10:14)
[2019-08-02 04:00] VITALS: BP 111/56
[2019-08-02] MEDS: PIPER-TAZ 3.375 GM 50 ML IV SCH (04:00)
[2019-08-02 05:40] LABS: BASOPHILS % 0.4 % (0.0-1.0); EOSINOPHILS # (AUTO) 0.5 (0.0-0.4); EOSINOPHILS % 6.5 % (0.0-6.0); HEMATOCRIT 38.3 % (38.2-49.6); LYMPHOCYTES # (AUTO) 1.3 (1.0-3.2); LYMPHOCYTES % 18.7 % (18.0-39.1); MEAN CORPUSCULAR HEMOGLOBIN 28.8 pg (28-32); MEAN CORPUSCULAR HGB CONC 33.9 g/dL (31-35); MEAN CORPUSCULAR VOLUME 84.7 fL (81-99); MONOCYTES # (AUTO) 0.5 (0.2-0.8); MONOCYTES % 6.3 % (4.4-11.3); NEUTROPHILS # (AUTO) 4.8 (2.1-6.9); NEUTROPHILS % 67.4 % (38.7-80.0); PLATELET COUNT 249 x10e3/uL (140-360); RED BLOOD COUNT 4.52 x10e6/uL (4.3-5.7); RED CELL DISTRIBUTION WIDTH 11.6 % (11.7-14.4)
--- NOTE | 2019-08-02 05:59 | NUR ---
PT RESTED DURING THE NIGHT .DENIES PAIN .FAMILY AT THE BEDSIDE .CALL LIGHT WITH IN REACH .CONTINUE TO MONITOR
[2019-08-02] MEDS: INSULIN REGULAR, HUMAN 100 UNIT/1 ML 3ML VIAL SQ SCH ×2 (06:00)
[2019-08-02 06:07] LABS: ALANINE AMINOTRANSFERASE 20 IU/L (0-55); ALBUMIN 3.4 g/dL (3.5-5.0); ALBUMIN/GLOBULIN RATIO 1.2 (0.8-2.0); ALKALINE PHOSPHATASE 51 IU/L (40-150); ANION GAP 15.5 mmol/L (8-16); BLOOD UREA NITROGEN 6 mg/dL (7-26); BUN/CREATININE RATIO 11 (6-25); CALCIUM 9.2 mg/dL (8.4-10.2); CARBON DIOXIDE 21 mmol/L (22-29); CHLORIDE 106 mmol/L (98-107); CREATININE, SERUM 0.53 mg/dL (0.72-1.25); EST GLOMERULAR FILTRATION RATE > 60 ML/MIN (60-); GLUCOSE 101 mg/dL (74-118); POTASSIUM 3.5 mmol/L (3.5-5.1); SODIUM 139 mmol/L (136-145)
--- NOTE | 2019-08-02 07:05 | NUR ---
BEDSIDE REPORT GIVEN TO THE ONCOMING NURSE .PT IS IN STABLE CONDITION.
--- NOTE | 2019-08-02 07:05 | NUR ---
BEDSIDE REPORT GIVEN TO THE ONCOMING NURSE .PT IS IN STABLE CONDITION
[2019-08-02 08:00] VITALS: BP 129/91
--- NOTE | 2019-08-02 08:00 | NUR ---
Patient alert and responsive, in bed, no distress, no c/o pains, diet upgraded to full liquid this morning and will monitor. Mother in room with patient
[2019-08-02] MEDS: ARIPIPRAZOLE 5 MG TABLET PO SCH (08:47)
[2019-08-02] MEDS: DIAZEPAM 5 MG TAB PO SCH (09:00)
[2019-08-02 09:28] VITALS: BP 129/91
--- NOTE | 2019-08-02 10:14 | NUR ---
Patient had full liquid diet and tolerated well, no N/V.
--- NOTE | 2019-08-02 11:45 | NUR ---
Patient alert and responsive, no resp distress, VSS and no c/o pains, tolerated Full liquid diet and no N/V, Provided with discharge summary, prescriptions and to contact surgeon for f/u appointment. Patient discharged.
[2019-08-02 12:00] VITALS: BP 125/93
== END 2019-08-02 11:50 | disposition home or self-care (01) | DRG 392 ==
LOC: ER 19:14 → ERHOLD 07-31 02:51 → MED/SURG2 07-31 14:20
PROVIDERS: ADMIT Surgery; ATTEND Surgery
DX: R10.84 Generalized abdominal pain (principal); F84.0 Autistic disorder; Z90.49 Acquired absence of other specified parts of digestive tract; E11.9 Type 2 diabetes mellitus without complications; K21.9 Gastro-esophageal reflux disease without esophagitis; E78.5 Hyperlipidemia, unspecified
CPT/HCPCS: 36415; 74177; 80048; 80053; 82150; 82948; 85025; 99284; J1170; J1817; J2270; J2405; J2543; J7030; Q9967